=== PATIENT | female | born 1965 | race Caucasian/White ===

== ENCOUNTER → 2020-01-23 13:35 | Outpatient (CLI) | payer BC, SELFPAY ==
[2020-01-23 13:41] LABS: Basophils # 0.1 K/mm3 (0-0.2); Eosinophils # 0.4 K/mm3 (0.0-0.4); Eosinophils % 3.3 % (0.1-12.0); Hematocrit 40.6 % (37.0-47.0); Hemoglobin 14.1 g/dL (12.2-16.2); Lymphocytes # 3.2 K/mm3 (0.7-4.5); Lymphocytes % 26.8 % (10-50); Mean Corpuscular HGB Conc 34.8 g/dL (31.8-35.4); Mean Corpuscular Hemoglobin 30.9 pg (27.0-31.2); Mean Corpuscular Volume 88.7 fl (81-99); Mean Platelet Volume 7.1 fl (7.4-10.4); Monocytes # 0.5 K/mm3 (0.1-1.0); Neutrophils # 7.9 K/mm3 (1.8-7.8); Neutrophils % 64.9 % (37.0-80.0); Platelet Count 360 K/mm3 (142-424); Red Blood Count 4.58 M/mm3 (4.20-5.40); White Blood Count 12.1 K/mm3 (4.8-10.8)
== END ==
PROVIDERS: Visit Provider Family Medicine
DX: R53.83 Other fatigue (principal); R51 Headache
CPT/HCPCS: 85025

== ENCOUNTER → 2020-05-11 17:46 | Outpatient (CLI) | payer BC, SELFPAY ==
[2020-05-11 19:32] LABS: Thyroid Stimulating Hormone 3.83 uIU/mL (0.465-4.68)
== END ==
PROVIDERS: Visit Provider Family Medicine
DX: R51.9 Headache, unspecified (principal); E03.9 Hypothyroidism, unspecified
CPT/HCPCS: 84443

== ENCOUNTER → 2020-07-02 14:42 | Outpatient (CLI) | payer BC, SELFPAY ==
[2020-07-02 19:00] LABS: Coronavirus 19 IgG Antibody Positive (Negative); Coronavirus 19 IgM Antibody Negative (Negative)
== END ==
PROVIDERS: Visit Provider Family Medicine
DX: Z01.818 Encounter for other preprocedural examination (principal); Z86.19 Personal history of other infectious and parasitic diseases; G47.419 Narcolepsy without cataplexy
CPT/HCPCS: 36415; 86328

== ENCOUNTER → 2020-07-03 20:11 | Outpatient (CLI) | payer BC, SELFPAY | PROVIDERS: PCP Family Medicine; Visit Provider Family Medicine | DX: G47.33 Obstructive sleep apnea (adult) (pediatric) (principal); G47.36 Sleep related hypoventilation in conditions classified elsewhere; R40.0 Somnolence; R06.83 Snoring; E66.9 Obesity, unspecified | CPT/HCPCS: 95810 ==

== ENCOUNTER → 2020-07-25 10:14 | Outpatient (CLI) | payer BC, SELFPAY ==
--- NOTE | 2020-07-25 10:39 | XR_ITS ---
PROCEDURE: XR CHEST 2V CLINICAL HISTORY: nocturnal hypoxemia, tobacco abuse COMPARISON: No exams were available for comparison FINDINGS: The cardiomediastinal silhouette and pulmonary vascularity are within normal limits. The lungs are clear without infiltrates, suspicious nodules, or pleural effusions. No acute bony abnormalities. IMPRESSION: No acute findings. Dictated by: Enrrique Dhaliwal MD 07/25/2020 11:56 Enrrique Dhaliwal MD in [place] 07/25/2020 11:56
== END ==
PROVIDERS: Visit Provider Specialist
DX: G47.10 Hypersomnia, unspecified (principal); G47.33 Obstructive sleep apnea (adult) (pediatric); G47.34 Idiopathic sleep related nonobstructive alveolar hypoventilation; R49.0 Dysphonia; Z68.36 Body mass index [BMI] 36.0-36.9, adult; Z72.0 Tobacco use
CPT/HCPCS: 36415; 71046

== ENCOUNTER → 2020-08-07 12:19 | Outpatient (CLI) | payer BC, SELFPAY ==
--- NOTE | 2020-08-07 12:25 | XR_ITS ---
PROCEDURE: XR FOOT RT MIN 3V CLINICAL INDICATION: foot injury Pain COMPARISON: No exams were available for comparison FINDINGS: No fracture or dislocation. No lytic or blastic change. There is normal mineralization. The joint spaces are well-preserved. No significant degenerative/arthritic changes. No erosive changes evident. Other findings:None. IMPRESSION: No acute findings. Dictated by: Enrrique Dhaliwal MD 08/07/2020 12:46 Enrrique Dhaliwal MD in [place] 08/07/2020 12:46
[2020-08-07 13:55] VITALS: PULSE 82; PULSE 85
== END ==
LOC: RT 12:21
PROVIDERS: PCP Family Medicine; Visit Provider Specialist
DX: G47.33 Obstructive sleep apnea (adult) (pediatric) (principal); G47.10 Hypersomnia, unspecified; G47.34 Idiopathic sleep related nonobstructive alveolar hypoventilation; R49.0 Dysphonia; Z72.0 Tobacco use; Z68.36 Body mass index [BMI] 36.0-36.9, adult; M79.671 Pain in right foot
CPT/HCPCS: 73630; 94060; 94618; 94640; 94727; 94729

== ENCOUNTER → 2020-09-26 10:43 | Outpatient (CLI) | payer BC, SELFPAY ==
--- NOTE | 2020-09-26 10:43 | CT_ITS ---
PROCEDURE: CT LUNG SCREENING CLINICAL INDICATION: LDCT Current smoker 30 pack year smoking history copd No prior COMPARISON: No exams were available for comparison TECHNIQUE: The exam was performed on a GE Light Speed [address] scanner using 2.90 mGy CTDI. A low dose helical CT CHEST was performed on a multi-detector scanner. All CT scans at the facility use one or more dose reduction, viz: automated exposure control, ma/kV adjustment per patient size (including targeted exams where dose is matched to indication, i.e. head), or iterative reconstruction technique. The LDCT was performed in a facility that meets the criteria for the screening program. Data regarding this exam was submitted to ACR which is an approved registry. The order for this exam indicates that it came as a result of a lung cancer screening counseling shard decision-making visit that included all the elements required of such a visit including smoking cessation. The radiologist interpreting this exam meets the CMS criteria for the LDCT lung cancer screening program. The exam is reported using the Lung-RADS classification scale and reported to the ACR registry. NOTE: This study was performed for the specific purposes of lung cancer screening and is not an alternative to diagnostic chest CT. RADIATION DOSE: CTDI vol(CT dose Index-volume) = 2.90mG DLP (Dose Length Product) = 96.38 mGcm FINDINGS: COPD changes. There is coarsening of the bronchovascular markings which may be seen with smoking related lung disease/chronic bronchitis. Mild atelectatic changes or fibrotic changes are present in the lower lobe posterior medially. No suspicious nodules apparent OTHER FINDINGS: No other pertinent findings evident. IMPRESSION: Lung-RADS Category 1 Negative Follow-up: Continue annual screening with LDCT in 12 months Dictated by: Enrrique Dhaliwal MD 09/28/2020 07:38 Enrrique Dhaliwal MD in [place] 09/28/2020 07:38
[2020-09-27 14:12] LABS: Alpha-1-Antitrypsin 145 mg/dL (101-187)
== END ==
LOC: RAD 10:43
PROVIDERS: PCP Family Medicine; Visit Provider Internal Medicine Pulmonary Disease
DX: Z87.891 Personal history of nicotine dependence (principal); Z12.2 Encounter for screening for malignant neoplasm of respiratory organs; J44.9 Chronic obstructive pulmonary disease, unspecified
CPT/HCPCS: 36415; 71271; 82103

== ENCOUNTER → 2020-09-26 11:12 | Outpatient (CLI) | payer BC, SELFPAY | PROVIDERS: Visit Provider Internal Medicine Pulmonary Disease | DX: Z87.891 Personal history of nicotine dependence (principal) | CPT/HCPCS: 36415; 82103 ==

== ENCOUNTER → 2020-10-12 17:51 | Outpatient (CLI) | payer BC, SELFPAY ==
[2020-10-12 18:03] LABS: Basophils # 0.1 K/mm3 (0-0.2); Basophils % 0.8 % (0.1-2.0); Eosinophils # 0.4 K/mm3 (0.0-0.4); Eosinophils % 2.4 % (0.1-12.0); Hematocrit 34.8 % (37.0-47.0); Hemoglobin 13.6 g/dL (12.2-16.2); Lymphocytes # 3.8 K/mm3 (0.7-4.5); Lymphocytes % 21.2 % (10-50); Mean Corpuscular Hemoglobin 33.8 pg (27.0-31.2); Mean Corpuscular Volume 86.5 fl (81-99); Mean Platelet Volume 7.2 fl (7.4-10.4); Monocytes # 0.7 K/mm3 (0.1-1.0); Monocytes % 3.8 % (1.7-9.3); Neutrophils % 71.9 % (37.0-80.0); Platelet Count 426 K/mm3 (142-424); Red Blood Count 4.03 M/mm3 (4.20-5.40); Red Cell Distribution Width 13.7 % (11.5-17.5); White Blood Count 18.1 K/mm3 (4.8-10.8)
[2020-10-12 18:07] LABS: MANUAL DIFFERENTIAL MANUAL DIFFERENTIAL (MANUAL DIFF)
[2020-10-12 18:23] LABS: Eosinophils % 3 % (0-3); Lymphocytes % 31 % (10-50); Monocytes % 2 % (2-9); Neutrophils % 63 % (42-76); Platelet Estimate Normal; RBC Morphology Normal; Total Cells Counted 100
[2020-10-12 18:38] LABS: Chloride 108 mmol/L (98-107); Potassium 4.2 mmoL/L (3.5-5.1); Sodium 140 mmol/L (136-145)
[2020-10-12 18:40] LABS: Alanine Aminotransferase 30 U/L (12-78); Aspartate Amino Transferase 29 U/L (14-36); Blood Urea Nitrogen 11 mg/dl (7-17); Estimated Glomerular Filt Rate 86 ml/min (>60); GFR (African American) 104 ML/MIN (>60)
[2020-10-12 18:41] LABS: Albumin Level 4.1 g/dl (3.5-5.0); Albumin/Globulin Ratio 1.6 (1.1-1.8); Alkaline Phosphatase 114 U/L (38-126); Bilirubin,Total 0.3 mg/dl (0.2-1.3); Calcium 9.3 mg/dl (8.4-10.2); Carbon Dioxide 23 mmol/L (22.0-30.0); Chol/HDL Ratio 6.2 (1-3.5); Cholesterol 187 mg/dl (140-200); Globulin 2.6 g/dL (1.3-3.2); Glucose 102 mg/dl (74-100); HDL Cholesterol 30 mg/dl (40-60); Total Protein,Serum 6.7 g/dl (6.3-8.2); Triglycerides 275 mg/dl (30-150); VLDL Cholesterol 55 mg/dL (0-40)
[2020-10-12 18:43] LABS: Anion Gap 13.2 mEq/L (5-15)
[2020-10-12 18:53] LABS: Direct LDL Cholesterol 117.14 mg/dL (100-129)
[2020-10-12 18:58] LABS: T4 (Thyroxine) 12.7 ug/dl (5.53-11.0)
[2020-10-12 19:12] LABS: Thyroid Stimulating Hormone 0.09 uIU/mL (0.465-4.68)
== END ==
PROVIDERS: Visit Provider Family Medicine
DX: E03.9 Hypothyroidism, unspecified (principal); Z79.899 Other long term (current) drug therapy
CPT/HCPCS: 80053; 80061; 84436; 84443; 85007; 85025

== ENCOUNTER → 2021-09-05 07:51 | Outpatient (CLI) | payer BC, SELFPAY ==
--- NOTE | 2021-09-05 07:51 | CT_ITS ---
FINAL REPORT TECHNIQUE: Axial images were obtained from the lung apex to the mid abdomen by computed tomography. Low-dose protocol was utilized. CLINICAL HISTORY: lung cancer screening 1ppd x 30 years copd COMPARISON: 09/26/2020 FINDINGS: CHEST CT LOW DOSE CTDI vol (mGy): 2.90 DLP (mGy-cm): 93.51 There is no axillary adenopathy. There is no hilar or mediastinal adenopathy. The heart is normal in size. There is no pericardial or pleural effusion. Lung window images demonstrate no suspicious infiltrate or nodule. Mild emphysema is noted. There is mild atelectasis or scar in the lung bases. Limited images of the upper abdomen are unremarkable. IMPRESSION: Lung RADS category 1. Recommend 12 month follow-up low-dose chest CT. Reviewed, Interpreted and Dictated by Yonas Goldsmith III, MD Transcribed by Magi Peñaloza Authenticated by Yonas Goldsmith III, MD on 09/05/2021 10:01:02 AM [facility]
== END ==
PROVIDERS: PCP Family Medicine; Visit Provider Internal Medicine Pulmonary Disease
DX: Z87.891 Personal history of nicotine dependence (principal); Z12.2 Encounter for screening for malignant neoplasm of respiratory organs
CPT/HCPCS: 71271

== ENCOUNTER → 2022-03-11 07:56 | Outpatient (CLI) | payer BC, SELFPAY ==
[2022-03-11 08:20] VITALS: PULSE 73; PULSE 77
== END ==
LOC: RT 07:57
PROVIDERS: PCP Family Medicine; Visit Provider Internal Medicine Pulmonary Disease
DX: R06.02 Shortness of breath (principal)
CPT/HCPCS: 94060; 94640

== ENCOUNTER → 2022-05-16 10:53 | Outpatient (CLI) | payer BC, SELFPAY ==
[2022-05-16 16:06] LABS: Basophils # 0.2 K/mm3 (0-0.2); Basophils % 1.6 % (0.1-2.0); Eosinophils # 0.4 K/mm3 (0.0-0.4); Eosinophils % 3.2 % (0.1-12.0); Hemoglobin 15.4 g/dL (12.2-16.2); Lymphocytes # 3.1 K/mm3 (0.7-4.5); Lymphocytes % 27.4 % (10-50); Mean Corpuscular HGB Conc 32.8 g/dL (31.8-35.4); Mean Corpuscular Hemoglobin 29.7 pg (27.0-31.2); Mean Corpuscular Volume 90.6 fl (81-99); Mean Platelet Volume 8.5 fl (7.4-10.4); Monocytes # 0.6 K/mm3 (0.1-1.0); Monocytes % 5.3 % (1.7-9.3); Neutrophils % 62.4 % (37.0-80.0); Platelet Count 438 K/mm3 (142-424); Red Blood Count 5.19 M/mm3 (4.20-5.40); Red Cell Distribution Width 13.6 % (11.5-17.5); White Blood Count 11.3 K/mm3 (4.8-10.8)
[2022-05-16 16:15] LABS: Chol/HDL Ratio 5.4 (1-3.5); Cholesterol 217 mg/dl (140-200); HDL Cholesterol 40 mg/dl (40-60); Triglycerides 182 mg/dl (30-150); VLDL Cholesterol 36 mg/dL (0-40)
[2022-05-16 16:26] LABS: Direct LDL Cholesterol 132.34 mg/dL (100-129)
[2022-05-16 16:47] LABS: Thyroid Stimulating Hormone 0.42 uIU/mL (0.465-4.68)
== END ==
PROVIDERS: PCP Family Medicine; Visit Provider Family Medicine
DX: R20.2 Paresthesia of skin (principal)
CPT/HCPCS: 80061; 84436; 84443; 85025

== ENCOUNTER → 2022-09-29 06:44 | Outpatient (CLI) | payer BC, SELFPAY ==
--- NOTE | 2022-09-29 06:44 | CT_ITS ---
FINAL REPORT CLINICAL HISTORY: lung cancer screening CURRENT SMOKER 1/2PPD X30 YEARS COMPARISON: September 05, 2021 FINDINGS: Low-Dose Chest CT CTDI vol (mGy): 2.90 DLP (mGy-cm): 91.69 Axial images were obtained from the lung apex to the mid abdomen by computed tomography. Low-dose protocol was utilized. FINDINGS: CHEST: There is no axillary adenopathy. There is no hilar or mediastinal adenopathy. The heart is proper size. There is no pericardial or pleural effusion. Limited images of the upper abdomen are unremarkable. Lung window images demonstrate no suspicious infiltrate or nodule. Emphysematous changes are present. IMPRESSION: Lung RADS category 1. Recommend 12 month follow-up low-dose chest CT. Reviewed, Interpreted and Dictated by Edwige Damon MD Transcribed by Raphael Zamarripa Authenticated and [facility]
== END ==
PROVIDERS: PCP Family Medicine; Visit Provider Internal Medicine Pulmonary Disease
DX: Z87.891 Personal history of nicotine dependence (principal); Z12.2 Encounter for screening for malignant neoplasm of respiratory organs
CPT/HCPCS: 71271

== ENCOUNTER → 2023-04-10 08:46 | Outpatient (CLI) | payer BC, SELFPAY ==
[2023-04-10 18:38] LABS: Alanine Aminotransferase 25 U/L (12-78); Albumin Level 3.7 g/dl (3.5-5.0); Albumin/Globulin Ratio 1.3 (1.1-1.8); Alkaline Phosphatase 94 U/L (38-126); Aspartate Amino Transferase 29 U/L (14-36); Bilirubin,Total 0.2 mg/dl (0.2-1.3); Blood Urea Nitrogen 16 mg/dl (7-17); Calcium 8.9 mg/dl (8.4-10.2); Carbon Dioxide 27 mmol/L (22.0-30.0); Chloride 109 mmol/L (98-107); Estimated Glomerular Filt Rate 73 ml/min (>60); GFR (African American) 89 ML/MIN (>60); Globulin 2.8 g/dL (1.3-3.2); Glucose 121 mg/dl (74-100); Sodium 140 mmol/L (136-145); Total Protein,Serum 6.5 g/dl (6.3-8.2)
== END ==
PROVIDERS: Family Medicine; PCP Internal Medicine Pulmonary Disease; Visit Provider Internal Medicine Pulmonary Disease
DX: M25.552 Pain in left hip (principal); M25.551 Pain in right hip
CPT/HCPCS: 80053

== ENCOUNTER → 2023-07-13 09:41 | Outpatient (POV) | payer BC, SELFPAY ==
--- NOTE | 2023-07-13 10:29 | A.OFFVIS_ITS ---
HPI Data of Consult Requesting Physician: Karina Chirinos APRN Primary Care Provider: Joon Lakhani MD Consult Narrative Reason for consult: Neck pain, low back pain, shoulder pain, left hip pain, left buttocks pain History of present illness: Ms. Mistry is a 57 year old female who presents today as a new patient. She is a referral from Manpreet Lakhani's office. Today she rates her pain a 5 out of 10. Patient states her pain is from her neck down to her left hip/buttocks. Patient states she has been dealing with this pain over the last 4 to 5 years unrelated to any specific trauma or injury. She does state that she has a stabbing, achy sensation in her neck and shoulder that is worse with increased activity. Patient does state that she has numbness in her hip and buttocks area. Patient does state that she also has sharp stabbing pains in her left hip. Patient does states she had a previous lumbar discectomy approximately 5 to 7 years ago. Patient does state that she has tried Tylenol and ibuprofen along with heat and ice with minimal relief. Patient has tried physical therapy however this made her symptoms worse. Patient is interested in any help we may be able to provide. She does state the pain interferes with her ability perform activities of daily living such as cooking and cleaning and she is trying to prevent having to have additional surgery. Patient is currently managed with [place] 5 mg daily from her PCP. Her Driss has been reviewed and is appropriate. CC: Karina Chirinos APRN [facility] Disclaimer: The information contained in this section may have been updated after the patient was seen, as this information can be updated by other users. Medical History Allergic rhinitis COPD (chronic obstructive pulmonary disease) Exertional shortness of breath Screening for lung cancer Smoking greater than 30 pack years Tobacco abuse counseling Tobacco abuse disorder Surgical History History of appendectomy History of hernia repair History of total hysterectomy Hx of cholecystectomy Family History Other Asthma Coronary artery disease Diabetes Hyperlipidemia Hypertension Social History Smoking Status: Current every day smoker tobacco type: cigarettes packs per day: 1 alcohol intake: never substance use type: denies use current occupational status: employed Travel in the last 8 weeks: None household members: spouse and children housing: house Review of Systems Review of Systems Review of systems:: pertinent systems reviewed and negative unless documented below Review of systems (narrative): Review of Systems: General: No recent weight changes, no fever, no sleep disturbances Respiratory: No cough, no shortness of air, no recurring pulmonary infections Cardiovascular/peripheral vascular: No chest pain, no palpitations, no edema, no shortness of breath Gastrointestinal: No new onset incontinence, normal bowel movements reported Genitourinary: No new onset incontinence Musculoskeletal: Neck pain, shoulder pain, low back pain, left hip pain, left buttocks pain Psychiatric: [Normal mood/affect] Neurological: [Denies weakness in extremities], [denies balance issues] Meds Home Medications and Allergies Home Medications Medication Instructions Recorded Confirmed Type ezooptouiq-bxdftdkjuhgqi-aganyrlt 1 cap PO TID PRN pain #30 caps 11/26/07/09/23 Rx 50 mg-300 mg-40 mg capsule (Fioricet) azelastine 137 mcg (0.1 %) nasal 1 spray intranasal BID 90 days #90 03/11/22 07/09/23 Rx spray aerosol mL gemfibrozil 600 mg tablet See Rx Instructions .Route 05/16/22 07/09/23 Rx .COMPLEX #180 tabs albuterol sulfate 90 mcg/actuation 2 inh inhalation Q6H PRN shortness 10/03/22 07/09/23 Rx aerosol inhaler of breath or wheezing 90 days #8.5 grams fluticasone propionate 50 1 spray intranasal BID 90 days #16 10/03/22 07/09/23 Rx mcg/actuation nasal grams spray,suspension (Flonase Allergy Relief) levothyroxine 200 mcg tablet See Rx Instructions .Route 12/02/22 07/09/23 Rx .COMPLEX #90 tabs lisinopril 20 mg tablet 20 mg PO DAILY #90 tabs 12/02/22 07/09/23 Rx paroxetine HCl 20 mg tablet (Paxil) 20 mg PO DAILY #90 tabs 12/02/22 07/09/23 Rx hydrocodone 5 mg-acetaminophen 325 1 tab PO DAILY PRN pain #20 tabs 05/27/23 07/09/23 Rx mg tablet umeclidinium 62.5 mcg-vilanterol See Rx Instructions .Route 06/11/23 07/09/23 Rx 25 mcg/actuation powdr for .COMPLEX #60 ea inhalation (Anoro Ellipta) levofloxacin 500 mg tablet 500 mg PO DAILY 10 days #10 tabs 07/09/23 07/09/23 Rx New Prescriptions to Start Prescriptions: Allergies Allergy/AdvReac Type Severity Reaction Status Date / Time estrogens, conjugated Allergy Severe Hives Verified 07/09/23 11:29 [From Premarin] Iodinated Contrast Media Allergy Unknown Verified 07/09/23 11:29 flu vaccine Allergy rash Uncoded 07/09/23 11:29 Objective Narrative: Physical Exam: General: Alert and oriented x3, no acute distress, pleasant and cooperative Lungs: Respirations even and unlabored, symmetrical chest expansion Eyes: PERRL Musculoskeletal: Flexion and extension of lumbar [spine] somewhat guarded secondary to pain, [antalgic gait noted] point tenderness along left SI with positive left Elvis's, Briseyda's, Gaenslen's, compression and distraction exam Neurological: Speech clear, no gross sensory deficit Additional findings Additional findings: MRI lumbar spine with and without contrast 05/06/2023 Findings: Marrow signal is age-appropriate. There are moderate endplate reactive changes L2-L3. There is straightening of the lumbar lordosis with intact vertebral body heights and spinal alignment. The conus is not studied in detail, terminating in L2. Following contrast administration there is no pathological enhancement. There is disc desiccation at T11-12, from L1-2 through L3-L4 and at L5-S1. There is moderate loss of disc space height at L1-2 and severe loss of disc space height at L2-L3 and L5-S1, there is moderate bilateral facet arthropathy, left greater than right and a minor central disc protrusion measuring 2 mm AP. There is also predominant anterior epidural fat at this level. The thecal sac at this level measures 9 mm without foraminal n arrowing. These findings are unchanged: At L4-L5 there is a central disc protrusion measuring 2 mm AP and mild bilateral facet arthropathy. There is no spinal stenosis or foraminal narrowing, unchanged. At L3-L4, there is mild facet arthropathy and ligamentum flavum hypertrophy. These findings narrows the thecal sac to 9.5 mm without foraminal narrowing. The ligamentum flavum hypertrophy and mild spinal stenosis are new. At L2-L3 the patient is status post left hemilaminectomy. There is a disc bulge and posterior disc osteophyte complex without spinal stenosis. There is mild bilateral neuroforaminal narrowing. Following contrast administration there is no perineural fibrosis. When compared with prior the spinal stenosis has improved and the foraminal narrowing is stable. At L1-2 there is mild disc bulge without spinal stenosis or foraminal narrowing. The remainder of the visualized interspaces are unremarkable. 04/13/2023 have been pelvis x-ray Mild enthesopathy of the greater trochanter. There is mild osteoarthritis of the left hip joint. Cam type deformity of the left femoral head/neck. Assessment and Plan *Assessment and plan (1) Neck pain: Status: Acute Category: Medical Code(s): M54.2 - Cervicalgia (2) Shoulder pain: Status: Acute Qualifiers: Chronicity: chronic Laterality: left Qualified Code(s): M25.512 - Pain in left shoulder; G89.29 - Other chronic pain Category: Medical Code(s): M25.519 - Pain in unspecified shoulder (3) Low back pain: Status: Acute Qualifiers: Chronicity: chronic Back pain laterality: bilateral Sciatica presence: with sciatica Sciatica laterality: sciatica of left side Qualified Code(s): M54.42 - Lumbago with sciatica, left side; G89.29 - Other chronic pain Category: Medical Code(s): M54.50 - Low back pain, unspecified (4) DDD (degenerative disc disease): Status: Acute Qualifiers: Spinal region: lumbar Qualified Code(s): M51.36 - Other intervertebral disc degeneration, lumbar region Category: Medical (5) Sacroiliitis: Status: Acute Category: Medical Code(s): M46.1 - Sacroiliitis, not elsewhere classified (6) Left hip pain: Status: Acute Category: Medical Code(s): M25.552 - Pain in left hip (7) Left buttock pain: Status: Acute Category: Medical Code(s): M79.18 - Myalgia, other site Plan Patient is experiencing significant pain in her low back and hip with limited range of motion of her lumbar spine. Patient did have point tenderness along her left SI and a positive left Elvis's, Briseyda's, Gaenslen's, compression and distraction exam during today's visit. I have discussed with the patient that she may benefit from a left SI injection. Risk and benefits were discussed with the patient and she would like to proceed forward with this plan of care. Patient will be scheduled for a diagnostic left SI injection under fluoroscopy. Patient has been instructed to contact the clinic with any concerns before the next appointment. Dr. Ramirez has reviewed this note and agrees with this plan of care. This note was dictated using voice recognition software and make contain errors or omissions.
[2023-07-13 11:12] VITALS: BP 163/79; PULSE 76; RESP 18; O2SAT 96; BMI 33.6
== END ==
LOC: SC.PAIN 09:42
PROVIDERS: PCP Family Medicine; Visit Provider Nurse Practitioner Family
DX: M54.2 Cervicalgia (principal); M25.512 Pain in left shoulder; G89.29 Other chronic pain; M54.42 Lumbago with sciatica, left side; M51.36 Other intervertebral disc degeneration, lumbar region; M46.1 Sacroiliitis, not elsewhere classified; M25.552 Pain in left hip; M79.18 Myalgia, other site
CPT/HCPCS: 99202; G0463

== ENCOUNTER 2023-08-11 09:42 | Day surgery (SDC) | payer BC, SELFPAY ==
[2023-08-11 10:10] VITALS: BP 140/86; PULSE 72; RESP 16; TEMP 36.6; O2SAT 98; BMI 34.5
[2023-08-11] MEDS: BUPIVACAINE 0.25% 10ML INJ 25 MG IJ (10:13)
[2023-08-11] MEDS: LIDOCAINE 1% 5ML PF VIAL 5 ML (10:14)
[2023-08-11] MEDS: methylPREDNISolone ACETATE 80MG/ML VIAL 80 MG (10:14)
[2023-08-11 10:15] VITALS: BP 119/79; PULSE 64; RESP 18; O2SAT 94
[2023-08-11 10:18] VITALS: BP 119/79; PULSE 69; RESP 18; O2SAT 96
[2023-08-11 10:25] VITALS: BP 141/82; PULSE 65; RESP 16; O2SAT 98
--- NOTE | 2023-08-11 10:45 | EXP.PAIN.PRO ---
Procedure Date: 08/11/23 Time: 10:20 Anesthesiologist:: Blas Osuna CRNA Complications:: None Pre-procedure Diagnosis:: Left sacroiliitis Post-procedure Diagnosis:: Same Indications for Procedure:: Patient is a very pleasant 57-year-old female comes our clinic today for a left sacroiliac joint injection. She describes left posterior hip pain as constant, dull, aching. She reports pain intensifies with sitting and/or standing for any length of time. Ambulation increases pain in the posterior hip on the left. She rates her pain 7/10 Procedure Details:: Procedure: Left sacroiliac injection under fluoroscopy Informed consent was obtained and the risk and benefits of the procedure were explained to the patient.~ The patient was taken to the procedure room and noninvasive monitors were placed including noninvasive blood pressure cuff and pulse oximeter.~ The patient was placed prone on the procedure table.~ The~ left hip was cleansed using Betadine as a cleansing solution.~ C-arm fluorosocpy was used to view the left SI joint.~ The skin and subcutaneous tissues were anesthetized using Lidocaine 1.5% and a 25-gauge needle.~ After this, a 22-gauge spinal needle was inserted under fluoroscopic guidance into the inferior aspect of the left SI joint.~ Omnipaque dye was injected and a good spread was seen throughout the joint.~ After this, approximately 5 mL of bupivacaine 0.25% and Depo-Medrol 40 mg was incrementally injected into the sacroiliac joint.~ The patient tolerated the procedure well with no complications.~ The patient was observed in the Pain Clinic for a period of 30-45 minutes, then discharged home neurologically intact.~ Plan and Disposition:: Patient was discharged without incident.
== END 2023-08-11 10:25 | disposition home or self-care (01) ==
LOC: SC.PAINP 09:42
PROVIDERS: PCP Family Medicine; Visit Provider Nurse Anesthetist, Certified Registered
DX: M46.1 Sacroiliitis, not elsewhere classified (principal)
CPT/HCPCS: 27096; G0260; J1040

== ENCOUNTER 2023-08-28 09:29 | Outpatient (POV) | payer BC, SELFPAY ==
--- NOTE | 2023-08-28 09:37 | EXP.PAIN.SOA ---
[facility] Pain Management SOAP Note Subjective:: Patient is a pleasant 57-year-old female who presents today for follow-up of left SI injection on 08/11/2023. We are currently treating the patient for left sacroiliitis, neck pain, shoulder pain, degenerative disc disease of lumbar spine, left buttocks pain. Today she rates her pain a 3 out of 10. She states that she has had at least 80% relief following this injection and feels like it still providing additional improvement. She states she has been able to increase her activity with decreased pain symptoms and feels overall more functional. Patient does state that she even noticed improvement in her neck and shoulder symptoms following this injection. Patient is currently managed with [place] 5 mg daily from her primary care provider. Her Driss has been reviewed and is appropriate. Review of Systems: General: No recent weight changes, no fever, no sleep disturbances Respiratory: No cough, no shortness of air, no recurring pulmonary infections Cardiovascular/peripheral vascular: No chest pain, no palpitations, no edema, no shortness of breath Gastrointestinal: No new onset incontinence, normal bowel movements reported Genitourinary: No new onset incontinence Musculoskeletal: Low back pain Psychiatric: [Normal mood/affect] Neurological: [Denies weakness in extremities], [denies balance issues] Objective:: Physical Exam: General: Alert and oriented x3, no acute distress, pleasant and cooperative Lungs: Respirations even and unlabored, symmetrical chest expansion Eyes: PERRL Musculoskeletal: Flexion and extension of lumbar [spine] somewhat guarded secondary to pain, [antalgic gait noted] Neurological: Speech clear, no gross sensory deficit Assessment:: Degenerative disc disease of lumbar spine with left-sided sacroiliitis, neck pain, shoulder pain, left buttocks pain Plan:: Patient has had significant improvement following her left SI injection and does not require any additional injection therapy at this time. Patient will return to clinic in 1 month for reevaluation of symptoms and plan of care. Patient has been instructed to contact the clinic with any concerns before the next appointment. Dr. Ramirez has reviewed this note and agrees with this plan of care. This note was dictated using voice recognition software and make contain errors or omissions. [facility] Disclaimer: The information contained in this section may have been updated after the patient was seen, as this information can be updated by other users. Medical History Allergic rhinitis COPD (chronic obstructive pulmonary disease) Exertional shortness of breath Screening for lung cancer Smoking greater than 30 pack years Tobacco abuse counseling Tobacco abuse disorder Surgical History History of appendectomy History of hernia repair History of total hysterectomy Hx of cholecystectomy Family History Other Asthma Coronary artery disease Diabetes Hyperlipidemia Hypertension Social History Smoking Status: Current every day smoker tobacco type: cigarettes packs per day: 1 alcohol intake: never substance use type: denies use current occupational status: employed Travel in the last 8 weeks: None household members: spouse and children housing: house
[2023-08-28 10:11] VITALS: BP 107/81; PULSE 73; RESP 18; O2SAT 97; BMI 33.1
== END 2023-08-28 23:59 ==
LOC: SC.PAIN 09:29
PROVIDERS: PCP Family Medicine; Visit Provider Nurse Practitioner Family
DX: M51.36 Other intervertebral disc degeneration, lumbar region (principal); M46.1 Sacroiliitis, not elsewhere classified; M54.2 Cervicalgia; M25.519 Pain in unspecified shoulder; M79.18 Myalgia, other site
CPT/HCPCS: 99212; G0463

== ENCOUNTER 2023-10-05 09:42 | Outpatient (POV) | payer BC, SELFPAY ==
[2023-10-05 09:49] VITALS: BP 153/89; PULSE 79; RESP 18; O2SAT 99; BMI 35.2
--- NOTE | 2023-10-05 09:56 | A.OFFVIS_ITS ---
[facility] Pain Management SOAP Note Subjective:: Patient is a pleasant 57-year-old female who presents today for follow-up. We are currently treating the patient for left sacroiliitis, neck pain, shoulder pain, degenerative disc disease of lumbar spine, left buttocks pain. Today she rates her pain a 5 out of 10. She denies any new trauma or injury. She does state that the pain is starting to increase at the same location as last time. She does describe it as high aching, throbbing sensation with pressure in and around her left hip and left buttocks area. Patient states the pain is worse with certain movements or prolonged positioning. She states the pain is starting to interfere with her ability perform activities of daily living such as cooking and cleaning. Patient did previously have her first sacroiliac joint injection on 08/11/2023 that did provide 80% relief in his lasted approximately a month and a half. Patient is interested in repeating this injection because it did not help so well. She is currently managed with [place] 5 mg daily from her primary care provider. Her Driss has been reviewed and is appropriate. Review of Systems: General: No recent weight changes, no fever, no sleep disturbances Respiratory: No cough, no shortness of air, no recurring pulmonary infections Cardiovascular/peripheral vascular: No chest pain, no palpitations, no edema, no shortness of breath Gastrointestinal: No new onset incontinence, normal bowel movements reported Genitourinary: No new onset incontinence Musculoskeletal: Low back pain, left hip pain Psychiatric: [Normal mood/affect] Neurological: [Denies weakness in extremities], [denies balance issues] Objective:: Physical Exam: General: Alert and oriented x3, no acute distress, pleasant and cooperative Lungs: Respirations even and unlabored, symmetrical chest expansion Eyes: PERRL Musculoskeletal: Flexion and extension of lumbar [spine] somewhat guarded secondary to pain, [antalgic gait noted] point tenderness along left SI with positive left Elvis's, Briseyda's, Gaenslen's, compression and distraction exam Neurological: Speech clear, no gross sensory deficit Assessment:: low back pain, left hip pain, left sacroiliitis, neck pain, shoulder pain Plan:: Patient is experiencing worsening pain in her low back along the left hip and left buttocks. Patient did have limited range of motion of her lumbar spine with point tenderness at her left SI and a positive left Elvis's, Briseyda's, Gaenslen's, compression and distraction exam. I have discussed with the patient that she may benefit from a repeat left SI injection. Risk and benefits were discussed with the patient and she would like to proceed forward with this plan of care. Patient did previously have her first left SI injection back at the very beginning of July that provided 80% improvement lasting for approximately a month and a half. I will also order the patient a compounded cream. Patient will be scheduled for a left SI injection under fluoroscopy. Patient has been instructed to contact the clinic with any concerns before the next appointment. Dr. Ramirez has reviewed this note and agrees with this plan of care. This note was dictated using voice recognition software and make contain errors or omissions. [facility] Disclaimer: The information contained in this section may have been updated after the patient was seen, as this information can be updated by other users. Medical History Allergic rhinitis COPD (chronic obstructive pulmonary disease) Exertional shortness of breath Screening for lung cancer Smoking greater than 30 pack years Tobacco abuse counseling Tobacco abuse disorder Surgical History History of appendectomy History of hernia repair History of total hysterectomy Hx of cholecystectomy Family History Other Asthma Coronary artery disease Diabetes Hyperlipidemia Hypertension Social History Smoking Status: Current every day smoker tobacco type: cigarettes packs per day: 1 alcohol intake: never substance use type: denies use current occupational status: retired Travel in the last 8 weeks: None household members: spouse and children housing: house
== END 2023-10-05 23:59 ==
LOC: SC.PAIN 09:43
PROVIDERS: PCP Family Medicine; Visit Provider Nurse Practitioner Family
DX: M51.36 Other intervertebral disc degeneration, lumbar region (principal); M25.552 Pain in left hip; M46.1 Sacroiliitis, not elsewhere classified; M54.2 Cervicalgia; M25.519 Pain in unspecified shoulder
CPT/HCPCS: 99212; G0463

== ENCOUNTER 2023-10-19 10:52 | Outpatient (CLI) | payer BC, SELFPAY ==
[2023-10-19 18:39] LABS: Basophils # 0.2 K/mm3 (0-0.2); Basophils % 1.6 % (0.1-2.0); Eosinophils # 0.3 K/mm3 (0.0-0.4); Eosinophils % 2.7 % (0.1-12.0); Hematocrit 45.5 % (37.0-47.0); Lymphocytes # 3.8 K/mm3 (0.7-4.5); Lymphocytes % 31.3 % (10-50); Mean Corpuscular HGB Conc 32.9 g/dL (31.8-35.4); Mean Corpuscular Hemoglobin 31.5 pg (27.0-31.2); Mean Corpuscular Volume 95.8 fl (81-99); Mean Platelet Volume 8.2 fl (7.4-10.4); Monocytes # 0.6 K/mm3 (0.1-1.0); Monocytes % 4.5 % (1.7-9.3); Neutrophils # 7.4 K/mm3 (1.8-7.8); Neutrophils % 59.9 % (37.0-80.0); Platelet Count 353 K/mm3 (142-424); Red Blood Count 4.75 M/mm3 (4.20-5.40); Red Cell Distribution Width 15.3 % (11.5-17.5); White Blood Count 12.3 K/mm3 (4.8-10.8)
[2023-10-19 19:05] LABS: Alanine Aminotransferase 33 U/L (12-78); Albumin Level 4.5 g/dl (3.5-5.0); Albumin/Globulin Ratio 1.7 (1.1-1.8); Alkaline Phosphatase 79 U/L (38-126); Anion Gap 11.4 mEq/L (5-15); Aspartate Amino Transferase 64 U/L (14-36); Bilirubin,Total 0.8 mg/dl (0.2-1.3); Blood Urea Nitrogen 17 mg/dl (7-17); Calcium 9.6 mg/dl (8.4-10.2); Carbon Dioxide 27 mmol/L (22.0-30.0); Chloride 105 mmol/L (98-107); Chol/HDL Ratio 5.1 (1-3.5); Cholesterol 282 mg/dl (140-200); Estimated Glomerular Filt Rate 57 ml/min (>60); GFR (African American) 68 ML/MIN (>60); Globulin 2.7 g/dL (1.3-3.2); Glucose 91 mg/dl (74-100); HDL Cholesterol 55 mg/dl (40-60); Potassium 4.4 mmoL/L (3.5-5.1); Sodium 139 mmol/L (136-145); Total Protein,Serum 7.2 g/dl (6.3-8.2); Triglycerides 250 mg/dl (30-150); VLDL Cholesterol 50 mg/dL (0-40)
[2023-10-19 19:16] LABS: Direct LDL Cholesterol 151.66 mg/dL (100-129)
[2023-10-19 20:49] LABS: Hemoglobin A1C 5.6 % (4.0-6.0)
== END 2023-10-19 23:59 | disposition home or self-care (01) ==
LOC: LAB.DROPOF 10-20 10:52
PROVIDERS: PCP Family Medicine; Visit Provider Family Medicine
DX: R22.0 Localized swelling, mass and lump, head (principal); W19.XXXA Unspecified fall, initial encounter
CPT/HCPCS: 80053; 80061; 83036; 84443; 85025

== ENCOUNTER 2023-10-27 10:43 | Day surgery (SDC) | payer BC, SELFPAY ==
[2023-10-27 11:01] VITALS: BP 132/79; PULSE 72; RESP 18; TEMP 36.4; O2SAT 99; BMI 35.4
[2023-10-27 11:10] VITALS: BP 151/85; PULSE 76; RESP 18; O2SAT 98
--- NOTE | 2023-10-27 11:12 | EXP.PAIN.PRO ---
Procedure Date: 10/27/23 Time: 11:00 Anesthesiologist:: Blas Osuna CRNA Complications:: None Pre-procedure Diagnosis:: Left sacroiliitis Post-procedure Diagnosis:: Same Indications for Procedure:: Patient's pleasant 58-year-old female that comes to clinic today for left sacroiliac joint injection. Patient reports difficulty transitioning from sitting to standing. Difficulty sitting for any length of time due to left low lumbar back pain as well as left posterior hip pain. She rates her pain 6/10. According to the patient she responded very well to this injection in the past. Procedure Details:: Procedure: Left sacroiliac injection under fluoroscopy Informed consent was obtained and the risk and benefits of the procedure were explained to the patient.~ The patient was taken to the procedure room and noninvasive monitors were placed including noninvasive blood pressure cuff and pulse oximeter.~ The patient was placed prone on the procedure table.~ The~ left hip was cleansed using Betadine as a cleansing solution.~ C-arm fluorosocpy was used to view the left SI joint.~ The skin and subcutaneous tissues were anesthetized using Lidocaine 1.5% and a 25-gauge needle.~ After this, a 22-gauge spinal needle was inserted under fluoroscopic guidance into the inferior aspect of the left SI joint.~ Omnipaque dye was injected and a good spread was seen throughout the joint.~ After this, approximately 5 mL of bupivacaine 0.25% and Depo-Medrol 40 mg was incrementally injected into the sacroiliac joint.~ The patient tolerated the procedure well with no complications.~ The patient was observed in the Pain Clinic for a period of 30-45 minutes, then discharged home neurologically intact.~ Plan and Disposition:: Patient was discharged without incident.
[2023-10-27] MEDS: methylPREDNISolone ACETATE 80MG/ML VIAL 80 MG (11:18)
[2023-10-27] MEDS: LIDOCAINE 1% 5ML PF VIAL 5 ML (11:18)
[2023-10-27] MEDS: BUPIVACAINE 0.25% 10ML INJ 25 MG IJ (11:18)
[2023-10-27 11:21] VITALS: BP 142/83; PULSE 79; RESP 18; O2SAT 95
[2023-10-27 11:24] VITALS: BP 142/83; PULSE 79; RESP 18; O2SAT 97
== END 2023-10-27 11:10 | disposition home or self-care (01) ==
PROVIDERS: PCP Family Medicine; Visit Provider Nurse Anesthetist, Certified Registered
DX: M46.1 Sacroiliitis, not elsewhere classified (principal)
CPT/HCPCS: 27096; G0260; J1010

== ENCOUNTER 2023-11-11 10:01 | Outpatient (POV) | payer BC, SELFPAY ==
[2023-11-11 10:50] VITALS: BP 125/92; PULSE 67; RESP 18; O2SAT 96; BMI 34.2
--- NOTE | 2023-11-11 16:31 | A.OFFVIS_ITS ---
[facility] Pain Management SOAP Note Subjective:: Patient is a pleasant 58-year-old female who presents today for follow-up of left SI injection on 10/27/2023. She does state from her last visit she had a fall a few weeks ago in the shower and hit her face. She states that she initially thought she may have broken her nose however it does just appear more soreness and did end up with a black eye. Patient states she has had at least 90% improvement following this injection and feels like it still helping. She states that she really only has pain in this area when it rains and that overall she feels much more functional. She states that pain is about a 3 out of 10. She does state however that her pain in her neck is a 7 or an 8 out of 10. Patient does state it radiates into her bilateral shoulders and into her arms with numbness and tingling. Patient does states this interferes with her ability to perform activities of daily living such as cooking and cleaning. Patient does state that she would like to see if we can get improvement for this pain. Patient has tried and failed conservative therapies. Patient is managed with [place] from an outside provider. Her Driss has been reviewed and is appropriate. Review of Systems: General: No recent weight changes, no fever, no sleep disturbances Respiratory: No cough, no shortness of air, no recurring pulmonary infections Cardiovascular/peripheral vascular: No chest pain, no palpitations, no edema, no shortness of breath Gastrointestinal: No new onset incontinence, normal bowel movements reported Genitourinary: No new onset incontinence Musculoskeletal: Neck pain, upper extremity pain Psychiatric: [Normal mood/affect] Neurological: [Denies weakness in extremities], [denies balance issues] Objective:: Physical Exam: General: Alert and oriented x3, no acute distress, pleasant and cooperative Lungs: Respirations even and unlabored, symmetrical chest expansion Eyes: PERRL Musculoskeletal: Flexion and extension of cervical [spine] somewhat guarded secondary to pain, [antalgic gait noted] positive Spurling's test Neurological: Speech clear, no gross sensory deficit Assessment:: Degenerative disc disease of cervical spine with cervical radiculopathy symptoms, low back pain, sacroiliitis Plan:: Patient is experiencing worsening pain in her neck with radiating symptoms into her upper extremities. Patient had limited range of motion of her cervical spine and a positive Spurling's test. I discussed with patient that she may benefit from a cervical epidural steroid injection. Risk and benefits were discussed with patient and she would like to proceed forward with this plan of care. Patient denies any blood thinners. Patient has tried and failed conservative therapies. We will schedule the patient for a ELYS C5-C6 under fluoroscopy. Patient has been instructed to contact the clinic with any concerns before the next appointment. Dr. Ramirez has reviewed this note and agrees with this plan of care. This note was dictated using voice recognition software and make contain errors or omissions. [facility] Disclaimer: The information contained in this section may have been updated after the patient was seen, as this information can be updated by other users. Medical History Allergic rhinitis Tobacco abuse disorder Tobacco abuse counseling Screening for lung cancer Smoking greater than 30 pack years COPD (chronic obstructive pulmonary disease) Exertional shortness of breath Surgical History History of total hysterectomy History of hernia repair Hx of cholecystectomy History of appendectomy Family History Other Asthma Coronary artery disease Diabetes Hyperlipidemia Hypertension Social History Smoking Status: Current every day smoker tobacco type: cigarettes packs per day: 1 alcohol intake: never substance use type: denies use current occupational status: other Travel in the last 8 weeks: None household members: spouse and children housing: house
== END 2023-11-11 23:59 | disposition home or self-care (01) ==
LOC: SC.PAIN 10:01
PROVIDERS: PCP Family Medicine; Visit Provider Nurse Practitioner Family
DX: M50.122 Cervical disc disorder at C5-C6 level with radiculopathy (principal); M54.50 Low back pain, unspecified; M46.1 Sacroiliitis, not elsewhere classified
CPT/HCPCS: 99212; G0463

== ENCOUNTER 2023-12-01 08:27 | Day surgery (SDC) | payer BC, SELFPAY ==
[2023-12-01 08:42] VITALS: BP 140/87; PULSE 85; RESP 18; TEMP 36.7; O2SAT 98; BMI 33.6
[2023-12-01 09:25] VITALS: BP 147/92; PULSE 74; RESP 18; O2SAT 98
[2023-12-01] MEDS: methylPREDNISolone ACETATE 80MG/ML VIAL 80 MG (09:29)
[2023-12-01 09:30] VITALS: BP 135/74; PULSE 76; RESP 20; O2SAT 99
[2023-12-01 09:31] VITALS: BP 135/74; PULSE 73; RESP 20; O2SAT 97
--- NOTE | 2023-12-01 09:43 | P.PCN_ITS ---
Procedure Date: 12/01/23 Time: 09:00 Anesthesiologist:: Blas Osuna CRNA Complications:: None Pre-procedure Diagnosis:: Degenerative disc cervical spine multilevels. Cervical radiculopathy. Post-procedure Diagnosis:: Same. Indications for Procedure:: Patient is a very pleasant 58-year-old female comes to clinic today for cervical epidural steroid injection. Patient reports posterior cervical neck pain as well as bilateral arm radicular symptoms into the hands including the fingers. Numbness and tingling in the hands. She rates her pain 6/10. Procedure Details:: Procedure:Cervical epidural steroid injection Informed consent was obtained and the risks and benefits of the procedure were explained to the patient. The patient was taken to the procedure room and noninvasive monitors placed, including noninvasive blood pressure cuff and pulse oximeter. The neck was prepped using Chloraprep as a cleansing solution. The C6- C7 interspace was viewed using fluroscopy. The skin and subcutaneous tissues were anesthetized using lidocaine 1.5% and a 25-gauge needle. After this an 18- gauge Touhy epidural needle was placed into the C6-C7 interspace under fluroscopy guidance and advanced using loss of resistance to air until the epidu ral space was encountered. After confirmation of needle placement in the epidural space using contrast dye, a solution containing normal saline, 2 mL and Depo-Medrol 80 mg was incrementally injected into the cervical epidural space.~ The patient tolerated the procedure well with no complications. The patient was observed in the Pain Clinic and then discharged home neurologically intact. Plan and Disposition:: Patient was discharged without incident.
== END 2023-12-01 09:35 | disposition home or self-care (01) ==
LOC: SC.PAINP 08:27
PROVIDERS: PCP Family Medicine; Visit Provider Nurse Anesthetist, Certified Registered
DX: M50.123 Cervical disc disorder at C6-C7 level with radiculopathy (principal)
CPT/HCPCS: 62321

== ENCOUNTER 2023-12-21 10:38 | Outpatient (POV) | payer BC, SELFPAY ==
--- NOTE | 2023-12-21 10:51 | EXP.PAIN.SOA ---
[facility] Pain Management SOAP Note Subjective:: Patient is a pleasant 58-year-old female who presents today for follow-up of cervical epidural steroid injection C6-C7. Today she rates her pain a 1 out of 10. Patient states that she is practically had 100% relief following this injection and feels like she can move around easier with overall decreased pain and improved function. Patient states that she feels like she is not sitting more at an angle with her neck turned due to the pain. Patient is prescribed [place] from an outside provider. Her Driss has been reviewed and is appropriate. Review of Systems: General: No recent weight changes, no fever, no sleep disturbances Respiratory: No cough, no shortness of air, no recurring pulmonary infections Cardiovascular/peripheral vascular: No chest pain, no palpitations, no edema, no shortness of breath Gastrointestinal: No new onset incontinence, normal bowel movements reported Genitourinary: No new onset incontinence Musculoskeletal: Neck pain Psychiatric: [Normal mood/affect] Neurological: [Denies weakness in extremities], [denies balance issues] Objective:: Physical Exam: General: Alert and oriented x3, no acute distress, pleasant and cooperative Lungs: Respirations even and unlabored, symmetrical chest expansion Eyes: PERRL Musculoskeletal: Flexion and extension of cervical [spine] somewhat guarded secondary to pain, [antalgic gait noted] Neurological: Speech clear, no gross sensory deficit Assessment:: Degenerative disc disease of cervical spine with cervical radiculopathy symptoms, low back pain, sacroiliitis Plan:: Patient has had significant improvement following her cervical epidural and does not require any additional injection therapy at this time. Patient will return to clinic in 1 month for reevaluation of symptoms and plan of care. Patient has been instructed to contact the clinic with any concerns before the next appointment. Dr. Ramirez has reviewed this note and agrees with this plan of care. This note was dictated using voice recognition software and make contain errors or omissions. [facility] Disclaimer: The information contained in this section may have been updated after the patient was seen, as this information can be updated by other users. Medical History Allergic rhinitis Tobacco abuse disorder Tobacco abuse counseling Screening for lung cancer Smoking greater than 30 pack years COPD (chronic obstructive pulmonary disease) Exertional shortness of breath Surgical History History of total hysterectomy History of hernia repair Hx of cholecystectomy History of appendectomy Family History Other Asthma Coronary artery disease Diabetes Hyperlipidemia Hypertension Social History Smoking Status: Current every day smoker tobacco type: cigarettes packs per day: 1 alcohol intake: never substance use type: denies use current occupational status: other Travel in the last 8 weeks: None household members: spouse and children housing: house
[2023-12-21 11:45] VITALS: BP 122/62; PULSE 87; RESP 18; O2SAT 95; BMI 71.8
== END 2023-12-21 23:59 | disposition home or self-care (01) ==
LOC: SC.PAIN 10:39
PROVIDERS: PCP Family Medicine; Visit Provider Nurse Practitioner Family
DX: M50.123 Cervical disc disorder at C6-C7 level with radiculopathy (principal); M54.50 Low back pain, unspecified; M46.1 Sacroiliitis, not elsewhere classified
CPT/HCPCS: 99212; G0463

== ENCOUNTER 2024-01-20 11:29 | Outpatient (POV) | payer BC, SELFPAY ==
[2024-01-20 11:37] VITALS: BP 154/89; PULSE 98; RESP 16; O2SAT 96; BMI 32.9
--- NOTE | 2024-01-20 11:59 | EXP.PAIN.SOA ---
[facility] Disclaimer: The information contained in this section may have been updated after the patient was seen, as this information can be updated by other users. Medical History Allergic rhinitis Tobacco abuse disorder Tobacco abuse counseling Screening for lung cancer Smoking greater than 30 pack years COPD (chronic obstructive pulmonary disease) Exertional shortness of breath Surgical History History of total hysterectomy History of hernia repair Hx of cholecystectomy History of appendectomy Family History Other Asthma Coronary artery disease Diabetes Hyperlipidemia Hypertension Social History Smoking Status: Current every day smoker tobacco type: cigarettes packs per day: 1 alcohol intake: never substance use type: denies use current occupational status: other Travel in the last 8 weeks: None household members: spouse and children housing: house PM Subjective & Objective Subjective Subjective:: Patient is a pleasant 58-year-old female who presents today for 1 month follow-up. Today she rates her pain a 1 out of 10. Patient states that she has not had any new injury or traumas. Patient does state that she had 1 day that she was worried that the pain was coming back however the next day it was back to feeling better and was able to move around. Patient did have a cervical epidural in the past that did provide 100% relief and she does state today that she feels like it is still working well. Patient is prescribed [place] from an outside provider. Her Driss has been reviewed and is appropriate. Review of Systems: General: No recent weight changes, no fever, no sleep disturbances Respiratory: No cough, no shortness of air, no recurring pulmonary infections Cardiovascular/peripheral vascular: No chest pain, no palpitations, no edema, no shortness of breath Gastrointestinal: No new onset incontinence, normal bowel movements reported Genitourinary: No new onset incontinence Musculoskeletal: Neck pain Psychiatric: [Normal mood/affect] Neurological: [Denies weakness in extremities], [denies balance issues] Pain at rest (0-10 scale): 1 Objective Objective:: Physical Exam: General: Alert and oriented x3, no acute distress, pleasant and cooperative Lungs: Respirations even and unlabored, symmetrical chest expansion Eyes: PERRL Musculoskeletal: Flexion and extension of cervical [spine] somewhat guarded secondary to pain, [antalgic gait noted] Neurological: Speech clear, no gross sensory deficit Has patient had previous pain injection?: No Conservative treatment options previously tried: Home exercise plan Length of treatment: Longer than 6 weeks Meds Home Medications and Allergies Home Medications Medication Instructions Recorded Confirmed Type gemfibrozil 600 mg tablet See Rx Instructions .Route 05/16/22 01/20/24 Rx .COMPLEX #180 tabs albuterol sulfate 90 mcg/actuation 2 inh inhalation Q6H PRN shortness 10/03/22 01/20/24 Rx aerosol inhaler of breath or wheezing 90 days #8.5 grams fluticasone propionate 50 1 spray intranasal BID 90 days #16 10/03/22 01/20/24 Rx mcg/actuation nasal grams spray,suspension (Flonase Allergy Relief) levothyroxine 200 mcg tablet See Rx Instructions .Route 10/19/23 01/20/24 Rx .COMPLEX #90 tabs paroxetine HCl 20 mg tablet (Paxil) 20 mg PO DAILY #90 tabs 10/19/23 01/20/24 Rx diphenhydramine HCl 25 mg capsule See Rx Instructions .Route 10/28/23 01/20/24 Rx (Benadryl) .COMPLEX #2 caps lisinopril 20 mg tablet 20 mg PO DAILY #90 tabs 11/24/23 01/20/24 Rx umeclidinium 62.5 mcg-vilanterol See Rx Instructions .Route 11/24/23 01/20/24 Rx 25 mcg/actuation powdr for .COMPLEX #60 ea inhalation (Anoro Ellipta) New Prescriptions to Start Prescriptions: Allergies Allergy/AdvReac Type Severity Reaction Status Date / Time estrogens, conjugated Allergy Severe Hives Verified 10/19/23 10:40 [From Premarin] Iodinated Contrast Media Allergy Unknown Verified 10/19/23 10:40 flu vaccine Allergy rash Uncoded 10/19/23 10:40 Assessment and Plan *Assessment and plan (1) DDD (degenerative disc disease): Status: Acute Qualifiers: Spinal region: lumbar Qualified Code(s): M51.36 - Other intervertebral disc degeneration, lumbar region Category: Medical (2) Cervical radiculopathy: Status: Acute Category: Medical Code(s): M54.12 - Radiculopathy, cervical region Plan Patient is still getting significant relief following her cervical epidural but she had back in October/November. Patient will return to clinic in 3 months for reevaluation of symptoms and plan of care. Patient has been instructed to contact the clinic with any concerns before the next appointment. Dr. Ramirez has reviewed this note and agrees with this plan of care. This note was dictated using voice recognition software and make contain errors or omissions.
== END 2024-01-20 23:59 | disposition home or self-care (01) ==
LOC: SC.PAIN 11:30
PROVIDERS: PCP Family Medicine; Visit Provider Nurse Practitioner Family
DX: M51.36 Other intervertebral disc degeneration, lumbar region (principal); M54.12 Radiculopathy, cervical region; J44.9 Chronic obstructive pulmonary disease, unspecified; F17.210 Nicotine dependence, cigarettes, uncomplicated; Z79.899 Other long term (current) drug therapy
CPT/HCPCS: 99212; G0463

== ENCOUNTER 2024-01-21 13:42 | Outpatient (CLI) | payer BC, SELFPAY ==
[2024-01-21 19:29] LABS: T4 (Thyroxine) 16.7 ug/dl (5.53-11.0)
[2024-01-21 19:42] LABS: Thyroid Stimulating Hormone < 0.02 uIU/mL (0.465-4.68)
== END 2024-01-21 23:59 | disposition home or self-care (01) ==
LOC: LAB.DROPOF 01-22 13:42
PROVIDERS: PCP Family Medicine; Visit Provider Family Medicine
DX: G47.429 Narcolepsy in conditions classified elsewhere without cataplexy (principal)
CPT/HCPCS: 84436; 84443

== ENCOUNTER 2024-04-21 09:39 | Outpatient (POV) | payer BC, SELFPAY ==
--- NOTE | 2024-04-21 10:16 | A.OFFVIS_ITS ---
[facility] Disclaimer: The information contained in this section may have been updated after the patient was seen, as this information can be updated by other users. Medical History Allergic rhinitis Tobacco abuse disorder Tobacco abuse counseling Screening for lung cancer Smoking greater than 30 pack years COPD (chronic obstructive pulmonary disease) Exertional shortness of breath Surgical History History of total hysterectomy History of hernia repair Hx of cholecystectomy History of appendectomy Family History Other Asthma Coronary artery disease Diabetes Hyperlipidemia Hypertension Social History Smoking Status: Current every day smoker tobacco type: cigarettes packs per day: 1 alcohol intake: never substance use type: denies use current occupational status: other Travel in the last 8 weeks: None household members: spouse and children housing: house PM Subjective & Objective Subjective Subjective:: Patient is a pleasant 58-year-old female who presents today for follow-up. Today she rates her pain a 4 out of 10. Patient denies any new trauma or injury. She does state over the last 4 to 5 weeks she has been having a random crawling sensation that comes across her back and does itch. She states that it has some numbness and tingling. Patient denies any changes in her laundry detergent or any other changes overall. Patient did previously get a cervical e pidural that did provide significant relief of upwards of 100% and is still helping somewhat. She states the pain is somewhat more present than what it was last visit however it is still currently manageable. Patient does state that a lot of the cold rainy weather does seem to aggravate her overall symptoms and feels like in future she would definitely need an injection. Her Driss has been reviewed and is appropriate. Review of Systems: General: No recent weight changes, no fever, no sleep disturbances Respiratory: No cough, no shortness of air, no recurring pulmonary infections Cardiovascular/peripheral vascular: No chest pain, no palpitations, no edema, no shortness of breath Gastrointestinal: No new onset incontinence, normal bowel movements reported Genitourinary: No new onset incontinence Musculoskeletal: Itching sensation, neck pain Psychiatric: [Normal mood/affect] Neurological: [Denies weakness in extremities], [denies balance issues] Pain at rest (0-10 scale): 4 Objective Objective:: Physical Exam: General: Alert and oriented x3, no acute distress, pleasant and cooperative Lungs: Respirations even and unlabored, symmetrical chest expansion Eyes: PERRL Musculoskeletal: Flexion and extension of cervical [spine] somewhat guarded secondary to pain, [antalgic gait noted] Neurological: Speech clear, no gross sensory deficit Has patient had previous pain injection?: No Conservative treatment options previously tried: Home exercise plan Length of treatment: Longer than 12 weeks Meds Home Medications and Allergies Home Medications ?Medication ?Instructions ?Recorded ?Confirmed ?Type fluticasone propionate 50 1 spray intranasal BID 90 days #16 10/03/22 04/21/24 Rx mcg/actuation nasal grams spray,suspension (Flonase Allergy Relief) paroxetine HCl 20 mg tablet (Paxil) 20 mg PO DAILY #90 tabs 10/19/23 04/21/24 Rx diphenhydramine HCl 25 mg capsule See Rx Instructions .Route 10/28/23 04/21/24 Rx (Benadryl) .COMPLEX #2 caps lisinopril 20 mg tablet 20 mg PO DAILY #90 tabs 11/24/23 04/21/24 Rx varenicline 0.5 mg (11)-1 mg (42) See Rx Instructions PO PER PKG DIR 01/21/24 04/21/24 Rx tablets in a dose pack (Chantix #53 tabs Starting Month Box) varenicline 1 mg tablet (Chantix 1 mg PO BID #56 tabs 01/21/24 04/21/24 Rx Continuing Month Box) levothyroxine 150 mcg tablet 150 mcg PO DAILY #90 tabs 01/22/24 04/21/24 Rx (Synthroid) umeclidinium 62.5 mcg-vilanterol See Rx Instructions .Route 01/25/24 04/21/24 Rx 25 mcg/actuation powdr for .COMPLEX #60 ea inhalation (Anoro Ellipta) albuterol sulfate 90 mcg/actuation 2 inh inhalation Q6H PRN shortness 04/14/24 04/21/24 Rx aerosol inhaler of breath or wheezing 90 days #8.5 grams hydroxyzine HCl 10 mg tablet 10 mg PO HS PRN itching #30 tabs 04/21/24 Rx New Prescriptions to Start Prescriptions: hydroxyzine HCl Karina Chirinos Allergies Allergy/AdvReac Type Severity Reaction Status Date / Time estrogens, conjugated Allergy Severe Hives Verified 01/21/24 09:33 [From Premarin] Iodinated Contrast Media Allergy Unknown Verified 01/21/24 09:33 flu vaccine Allergy rash Uncoded 01/21/24 09:33 Assessment and Plan *Assessment and plan (1) Cervical radiculopathy: Status: Acute Category: Medical Code(s): M54.12 - Radiculopathy, cervical region Plan I did discuss with the patient due to the new itching sensation that is unrelieved with hydrocortisone cream or other antihistamines that I will send in a prescription of hydroxyzine 10 mg daily as needed with 30 tablets. Patient will return to clinic in 1 month for reevaluation of symptoms and plan of care. Patient has been instructed to contact the clinic with any concerns before the next appointment. Dr. Ramirez has reviewed this note and agrees with this plan of care. This note was dictated using voice recognition software and make contain errors or omissions. All injections are used with Lidocaine or Bupivacaine and Depo Medrol.
[2024-04-21 10:50] VITALS: BP 139/80; PULSE 69; RESP 16; O2SAT 97; BMI 33.3
== END 2024-04-21 23:59 | disposition home or self-care (01) ==
PROVIDERS: PCP Family Medicine; Visit Provider Nurse Practitioner Family
DX: M54.12 Radiculopathy, cervical region (principal); F17.210 Nicotine dependence, cigarettes, uncomplicated
CPT/HCPCS: 99212; G0463

== ENCOUNTER 2024-05-05 12:45 | Outpatient (CLI) | payer BC, SELFPAY ==
[2024-05-05 19:34] LABS: Basophils # 0.1 K/mm3 (0-0.2); Basophils % 1.1 % (0.1-2.0); Eosinophils # 0.4 K/mm3 (0.0-0.4); Eosinophils % 3.1 % (0.1-12.0); Hemoglobin 15.6 g/dL (12.2-16.2); Lymphocytes # 3.6 K/mm3 (0.7-4.5); Mean Corpuscular HGB Conc 33.8 g/dL (31.8-35.4); Mean Corpuscular Hemoglobin 29.6 pg (27.0-31.2); Mean Corpuscular Volume 87.5 fl (81-99); Monocytes # 0.7 K/mm3 (0.1-1.0); Monocytes % 5.5 % (1.7-9.3); Neutrophils # 7.5 K/mm3 (1.8-7.8); Neutrophils % 61.3 % (37.0-80.0); Platelet Count 376 K/mm3 (142-424); Red Blood Count 5.25 M/mm3 (4.20-5.40); Red Cell Distribution Width 14.6 % (11.5-17.5); White Blood Count 12.2 K/mm3 (4.8-10.8)
[2024-05-05 20:09] LABS: Hemoglobin A1C 5.5 % (4.0-6.0)
[2024-05-05 20:17] LABS: Alanine Aminotransferase 28 U/L (12-78); Albumin Level 4.2 g/dl (3.5-5.0); Albumin/Globulin Ratio 1.4 (1.1-1.8); Alkaline Phosphatase 96 U/L (38-126); Anion Gap 12.6 mEq/L (5-15); Aspartate Amino Transferase 39 U/L (14-36); Bilirubin,Total 0.8 mg/dl (0.2-1.3); Blood Urea Nitrogen 20 mg/dl (7-17); Calcium 9.2 mg/dl (8.4-10.2); Carbon Dioxide 22 mmol/L (22.0-30.0); Chloride 108 mmol/L (98-107); Chol/HDL Ratio 5.2 (1-3.5); Cholesterol 204 mg/dl (140-200); Estimated Glomerular Filt Rate 64 ml/min (>60); GFR (African American) 77 ML/MIN (>60); Globulin 3.1 g/dL (1.3-3.2); Glucose 72 mg/dl (74-100); HDL Cholesterol 39 mg/dl (40-60); Potassium 4.6 mmoL/L (3.5-5.1); Sodium 138 mmol/L (136-145); Total Protein,Serum 7.3 g/dl (6.3-8.2); Triglycerides 211 mg/dl (30-150); VLDL Cholesterol 42 mg/dL (0-40)
[2024-05-05 20:28] LABS: Direct LDL Cholesterol 129.04 mg/dL (100-129)
== END 2024-05-05 23:59 | disposition home or self-care (01) ==
LOC: LAB.DROPOF 05-06 09:45
PROVIDERS: PCP Family Medicine; Visit Provider Family Medicine
DX: J44.9 Chronic obstructive pulmonary disease, unspecified (principal); G47.429 Narcolepsy in conditions classified elsewhere without cataplexy; Z87.19 Personal history of other diseases of the digestive system; Z72.0 Tobacco use
CPT/HCPCS: 80050; 80053; 80061; 83036; 84436; 84443; 85025

== ENCOUNTER 2024-06-13 09:50 | Outpatient (POV) | payer BC, SELFPAY ==
--- NOTE | 2024-06-13 09:59 | EXP.PAIN.SOA ---
[facility] Disclaimer: The information contained in this section may have been updated after the patient was seen, as this information can be updated by other users. Medical History Allergic rhinitis Tobacco abuse disorder Tobacco abuse counseling Screening for lung cancer Smoking greater than 30 pack years COPD (chronic obstructive pulmonary disease) Exertional shortness of breath Surgical History History of total hysterectomy History of hernia repair Hx of cholecystectomy History of appendectomy Family History Other Asthma Coronary artery disease Diabetes Hyperlipidemia Hypertension Social History Smoking Status: Current every day smoker tobacco type: cigarettes packs per day: 1 alcohol intake: never substance use type: denies use current occupational status: other Travel in the last 8 weeks: None household members: spouse and children housing: house PM Subjective & Objective Subjective Subjective:: Patient is a pleasant 58-year-old female who presents today for 1 month follow-up. Today she rates her pain a 3 out of 10. Patient denies any new trauma or injury. She does state that just as of Thursday she got diagnosed with lower lobe pneumonia and is now on antibiotics and other medications. Patient does state that she feels overall really bad related to this and that her neck symptoms have maintained. Patient was given a prescription of hydroxyzine for itching sensation across her low back at her last visit. Today she states that this did help. Patient states that it is still occasionally causing itching but it does vary day-to-day. Patient has gotten epidural injections that did provide significant relief in the past with her last 1 being in November providing 100% relief. Patient is interested in repeating these injections in the future. Her Driss has been reviewed and is appropriate. Review of Systems: General: No recent weight changes, no fever, no sleep disturbances Respiratory: No cough, no shortness of air, no recurring pulmonary infections Cardiovascular/peripheral vascular: No chest pain, no palpitations, no edema, no shortness of breath Gastrointestinal: No new onset incontinence, normal bowel movements reported Genitourinary: No new onset incontinence Musculoskeletal: neck pain, breathing issues Psychiatric: [Normal mood/affect] Neurological: [Denies weakness in extremities], [denies balance issues] Pain at rest (0-10 scale): 3 Objective Objective:: Physical Exam: General: Alert and oriented x3, no acute distress, pleasant and cooperative Lungs: Respirations even and unlabored, symmetrical chest expansion Eyes: PERRL Musculoskeletal: Flexion and extension of cervical [spine] somewhat guarded secondary to pain, [antalgic gait noted] Neurological: Speech clear, no gross sensory deficit Has patient had previous pain injection?: No Conservative treatment options previously tried: Home exercise plan Length of treatment: Longer than 12 weeks Meds Home Medications and Allergies Home Medications ?Medication ?Instructions ?Recorded ?Confirmed ?Type diphenhydramine HCl 25 mg capsule See Rx Instructions .Route 10/28/23 05/05/24 Rx (Benadryl) .COMPLEX #2 caps varenicline 0.5 mg (11)-1 mg (42) See Rx Instructions PO PER PKG DIR 01/21/24 05/05/24 Rx tablets in a dose pack (Chantix #53 tabs Starting Month Box) varenicline 1 mg tablet (Chantix 1 mg PO BID #56 tabs 01/21/24 05/05/24 Rx Continuing Month Box) albuterol sulfate 90 mcg/actuation 2 inh inhalation Q6H PRN shortness 04/14/24 04/21/24 Rx aerosol inhaler of breath or wheezing 90 days #8.5 grams fluticasone propionate 50 1 spray intranasal BID 90 days #16 05/05/24 05/05/24 Rx mcg/actuation nasal grams spray,suspension (Flonase Allergy Relief) hydroxyzine HCl 10 mg tablet 10 mg PO HS PRN itching #90 tabs 05/05/24 05/05/24 Rx lisinopril 20 mg tablet 20 mg PO DAILY #90 tabs 05/05/24 05/05/24 Rx paroxetine HCl 20 mg tablet (Paxil) 20 mg PO DAILY #90 tabs 05/05/24 05/05/24 Rx umeclidinium 62.5 mcg-vilanterol See Rx Instructions .Route 05/05/24 05/05/24 Rx 25 mcg/actuation powdr for .COMPLEX #60 ea inhalation (Anoro Ellipta) levothyroxine 175 mcg tablet 175 mcg PO DAILY #90 tabs 05/06/24 Rx (Synthroid) albuterol sulfate 2.5 mg/3 mL 2.5 mg (3 mL) inhalation Q6H #720 06/07/24 Rx (0.083 %) solution for nebulization mL New Prescriptions to Start Prescriptions: Allergies Allergy/AdvReac Type Severity Reaction Status Date / Time estrogens, conjugated (From Allergy Severe Hives Verified 05/05/24 11:40 Premarin) Iodinated Contrast Media Allergy Unknown Verified 05/05/24 11:40 flu vaccine Allergy rash Uncoded 05/05/24 11:40 Assessment and Plan *Assessment and plan (1) Cervical radiculopathy: Status: Acute Category: Medical Code(s): M54.12 - Radiculopathy, cervical region (2) DDD (degenerative disc disease): Status: Acute Qualifiers: Spinal region: lumbar Qualified Code(s): M51.36 - Other intervertebral disc degeneration, lumbar region Category: Medical Plan Patient is currently on antibiotic for her pneumonia and is having a lot more respiratory issues. I have counseled her that since the hydroxyzine medication did help with the itching I will send an additional refill and we will follow-up with her in 1 month for reevaluation of symptoms and plan of care. Patient has been instructed to contact the clinic with any concerns before the next appointment. Dr. Ramirez has reviewed this note and agrees with this plan of care. This note was dictated using voice recognition software and make contain errors or omissions. All injections are used with Lidocaine or Bupivacaine and Depo Medrol.
[2024-06-13 10:17] VITALS: BP 147/92; PULSE 80; RESP 18; O2SAT 96; BMI 33.6
== END 2024-06-13 23:59 | disposition home or self-care (01) ==
PROVIDERS: PCP Family Medicine; Visit Provider Nurse Practitioner Family
DX: M54.12 Radiculopathy, cervical region (principal); M51.369 Other intervertebral disc degeneration, lumbar region without mention of lumbar back pain or lower extremity pain; F17.210 Nicotine dependence, cigarettes, uncomplicated
CPT/HCPCS: 99212; G0463

== ENCOUNTER 2024-07-25 10:06 | Outpatient (POV) | payer BC, SELFPAY ==
--- NOTE | 2024-07-25 10:14 | EXP.PAIN.SOA ---
[facility] Disclaimer: The information contained in this section may have been updated after the patient was seen, as this information can be updated by other users. Medical History Allergic rhinitis Tobacco abuse disorder Tobacco abuse counseling Screening for lung cancer Smoking greater than 30 pack years COPD (chronic obstructive pulmonary disease) Exertional shortness of breath Surgical History History of total hysterectomy History of hernia repair Hx of cholecystectomy History of appendectomy Family History Diabetes Coronary artery disease Hyperlipidemia Hypertension Asthma Social History Smoking Status: Current every day smoker tobacco type: cigarettes packs per day: 1 alcohol intake: never substance use type: denies use current occupational status: other Travel in the last 8 weeks: None household members: spouse and children housing: house PM Subjective & Objective Subjective Subjective:: Patient is a pleasant 58-year-old female who presents today for 1 month follow-up. Today she rates her pain a 9 out of 10. Patient denies any new trauma or injury. She does state that the pneumonia has gotten much better but she still feels like she has a little residual. She does state that she is having severe pain in her neck with numbness and tingling into her upper extremities as well as low back pain into her hips. Patient does state that the neck symptoms are worse than the low back symptoms. She does state it is interfering with her ability to perform activities of daily living such as cooking and cleaning. Patient did previously have a cervical epidural back in November that did provide 100% relief lasting longer than 3 months. She does state that she would like to see about repeating this. She does also mention that the itching has improved from her last visit. She was prescribed hydroxyzine 10 mg at bedtime. Her Driss has been reviewed and is appropriate. Review of Systems: General: No recent weight changes, no fever, no sleep disturbances Respiratory: No cough, no shortness of air, no recurring pulmonary infections Cardiovascular/peripheral vascular: No chest pain, no palpitations, no edema, no shortness of breath Gastrointestinal: No new onset incontinence, normal bowel movements reported Genitourinary: No new onset incontinence Musculoskeletal: neck pain, bilateral arm numbness tingling Psychiatric: [Normal mood/affect] Neurological: [Denies weakness in extremities], [denies balance issues] Pain at rest (0-10 scale): 9 Objective Objective:: Physical Exam: General: Alert and oriented x3, no acute distress, pleasant and cooperative Lungs: Respirations even and unlabored, symmetrical chest expansion Eyes: PERRL Musculoskeletal: Flexion and extension of cervical [spine] somewhat guarded secondary to pain, [antalgic gait noted] positive Spurling's test Neurological: Speech clear, no gross sensory deficit Has patient had previous pain injection?: No Conservative treatment options previously tried: Home exercise plan Length of treatment: Longer than 12 weeks Meds Home Medications and Allergies Home Medications ?Medication ?Instructions ?Recorded ?Confirmed ?Type diphenhydramine HCl 25 mg capsule See Rx Instructions .Route 10/28/23 06/24/24 Rx (Benadryl) .COMPLEX #2 caps varenicline tartrate 0.5 mg (11)-1 See Rx Instructions PO PER PKG DIR 01/21/24 06/24/24 Rx mg (42) tablets in a dose pack #53 tabs (Chantix Starting Month Box) varenicline tartrate 1 mg tablet 1 mg PO BID #56 tabs 01/21/24 06/24/24 Rx (Chantix Continuing Month Box) albuterol sulfate 90 mcg/actuation 2 inh inhalation Q6H PRN shortness 04/14/24 06/24/24 Rx aerosol inhaler of breath or wheezing 90 days #8.5 grams fluticasone propionate 50 1 spray intranasal BID 90 days #16 05/05/24 06/24/24 Rx mcg/actuation nasal grams spray,suspension (Flonase Allergy Relief) hydroxyzine HCl 10 mg tablet 10 mg PO HS PRN itching #90 tabs 05/05/24 06/24/24 Rx lisinopril 20 mg tablet 20 mg PO DAILY #90 tabs 05/05/24 06/24/24 Rx paroxetine HCl 20 mg tablet (Paxil) 20 mg PO DAILY #90 tabs 05/05/24 06/24/24 Rx umeclidinium 62.5 mcg-vilanterol See Rx Instructions .Route 10/31/24 12/20/24 Rx 25 mcg/actuation powdr for .COMPLEX #60 ea inhalation (Anoro Ellipta) levothyroxine 175 mcg tablet 175 mcg PO DAILY #90 tabs 05/06/24 06/24/24 Rx (Synthroid) albuterol sulfate 2.5 mg/3 mL 2.5 mg (3 mL) inhalation Q6H #720 06/07/24 06/24/24 Rx (0.083 %) solution for nebulization mL benzonatate 200 mg capsule 200 mg PO TID PRN cough #90 caps 06/24/24 06/24/24 Rx ipratropium 0.5 mg-albuterol 3 mg 3 ml inhalation Q6H PRN shortness 06/24/24 06/24/24 Rx (2.5 mg base)/3 mL nebulization of breath #180 mL soln prochlorperazine maleate 10 mg 10 mg PO Q6H PRN nausea and 07/08/24 Rx tablet (Compazine) vomiting #60 tabs New Prescriptions to Start Prescriptions: Allergies Allergy/AdvReac Type Severity Reaction Status Date / Time estrogens, conjugated (From Allergy Severe Hives Verified 06/24/24 14:06 Premarin) Iodinated Contrast Media Allergy Unknown Verified 06/24/24 14:06 flu vaccine Allergy rash Uncoded 06/24/24 14:06 Assessment and Plan *Assessment and plan (1) Cervical radiculopathy: Status: Acute Category: Medical Code(s): M54.12 - Radiculopathy, cervical region (2) DDD (degenerative disc disease): Status: Acute Qualifiers: Spinal region: lumbar Qualified Code(s): M51.36 - Other intervertebral disc degeneration, lumbar region Category: Medical Plan Patient is experiencing worsening pain in her neck with numbness and tingling into her upper extremities. Patient did have limited range of motion of her cervical spine with a positive Spurling's test. I did discuss with the patient that I do believe that she would benefit from a repeat cervical epidural steroid injection. Risk and benefits were discussed with the patient and she would like to proceed forward with this plan of care. Patient has tried and failed conservative therapy including oral medications, heat and ice, topicals, at home stretching exercise that was physician guided for longer than 12 weeks in between injections. Patient's last cervical epidural was in November 2023 that did provide 100% relief lasting more than 3 months. Patient had improved function with decreased pain. We will refill her hydroxyzine. Patient will be scheduled for a ELSY C6 or C7 under fluoroscopy. Patient has been instructed to contact the clinic with any concerns before the next appointment. Dr. Ramirez has reviewed this note and agrees with this plan of care. This note was dictated using voice recognition software and make contain errors or omissions. All injections are used with Lidocaine, Bupivacaine and Depo Medrol. Occasionally urine drug screen is needed to verify patient's compliance with our office pain contract. This is ordered based off specific treatments related to chronic pain with the potential to abuse certain medications.
[2024-07-25 10:42] VITALS: BP 159/89; PULSE 86; RESP 14; O2SAT 97; BMI 34.5
== END 2024-07-25 23:59 | disposition home or self-care (01) ==
PROVIDERS: PCP Family Medicine; Visit Provider Nurse Practitioner Family
DX: M54.12 Radiculopathy, cervical region (principal); M51.369 Other intervertebral disc degeneration, lumbar region without mention of lumbar back pain or lower extremity pain; F17.210 Nicotine dependence, cigarettes, uncomplicated; Z73.89 Other problems related to life management difficulty; Z79.899 Other long term (current) drug therapy
CPT/HCPCS: 99212; G0463

== ENCOUNTER 2024-08-09 10:02 | Day surgery (SDC) | payer BC, SELFPAY ==
[2024-08-09 10:26] VITALS: BP 119/66; PULSE 79; RESP 16; TEMP 36.8; O2SAT 95; BMI 35.4
[2024-08-09 10:56] VITALS: BP 136/83; PULSE 88; RESP 16; O2SAT 96
--- NOTE | 2024-08-09 10:57 | P.PCN_ITS ---
Procedure Date: 08/09/24 Time: 10:30 Anesthesiologist:: Blas Osuna CRNA Complications:: None Pre-procedure Diagnosis:: Degenerative disc cervical spine multilevels. Cervical radiculopathy. Post-procedure Diagnosis:: Same Indications for Procedure:: Patient is a pleasant 58-year-old female who comes our clinic today for cervical epidural steroid injection. Patient describes posterior cervical neck pain as well as bilateral arm radicular symptoms. She rates her pain 7/10. Procedure Details:: Procedure:Cervical epidural steroid injection Informed consent was obtained and the risks and benefits of the procedure were explained to the patient. The patient was taken to the procedure room and noninvasive monitors placed, including noninvasive blood pressure cuff and pulse oximeter. The neck was prepped using Chloraprep as a cleansing solution. The C6- C7 interspace was viewed using fluroscopy. The skin and subcutaneous tissues were anesthetized using lidocaine 1.5% and a 25-gauge needle. After this an 18- gauge Touhy epidural needle was placed into the C6-C7 interspace under fluroscopy guidance and advanced using loss of resistance to air until the epidural space was encountered. After confirmation of needle placement in the epidural space using contrast dye, a solution containing normal saline, 2 mL and Depo-Medrol 80 mg was incrementally injected into the cervical epidural space.~ The patient tolerated the procedure well with no complications. The patient was observed in the Pain Clinic and then discharged home neurologically intact. Plan and Disposition:: Patient was discharged without incident.
[2024-08-09 11:18] VITALS: BP 150/90; PULSE 82; RESP 18; O2SAT 93
[2024-08-09] MEDS: methylPREDNISolone ACETATE 80MG/ML VIAL 80 MG (11:18)
== END 2024-08-09 10:56 | disposition home or self-care (01) ==
PROVIDERS: PCP Family Medicine; Visit Provider Nurse Anesthetist, Certified Registered
DX: M50.30 Other cervical disc degeneration, unspecified cervical region (principal); M54.12 Radiculopathy, cervical region
CPT/HCPCS: 62321; J1010

== ENCOUNTER 2024-08-29 09:24 | Outpatient (POV) | payer BC, SELFPAY ==
[2024-08-29 09:30] VITALS: BP 169/106; PULSE 83; RESP 16; O2SAT 97; BMI 34.5
--- NOTE | 2024-08-29 09:41 | A.OFFVIS_ITS ---
[facility] Disclaimer: The information contained in this section may have been updated after the patient was seen, as this information can be updated by other users. Medical History Allergic rhinitis Tobacco abuse disorder Tobacco abuse counseling Screening for lung cancer Smoking greater than 30 pack years COPD (chronic obstructive pulmonary disease) Exertional shortness of breath Surgical History History of total hysterectomy History of hernia repair Hx of cholecystectomy History of appendectomy Family History Other Asthma Coronary artery disease Diabetes Hyperlipidemia Hypertension Social History Smoking Status: Current every day smoker tobacco type: cigarettes packs per day: 1 alcohol intake: never substance use type: denies use current occupational status: other Travel in the last 8 weeks: None household members: spouse and children housing: house PM Subjective & Objective Subjective Subjective:: Patient is a pleasant 58-year-old female who presents today for follow-up of cervical epidural steroid injection C6-C7 on 08/09/2024. Today she rates her pain a 1 out of 10 in her neck however a 9 out of 10 in her low back and hip area up. Patient states that she has had at least 90% improvement following the cervical epidural and feels like it is still working well. She does state this time it was really sore initially after the procedure and it did actually take 5 days for it to officially kick in however once it did it really decrease the severity and made her pain much more manageable they are in her neck. Patient does state that her pain that is really bothering her now is the low back and hips and that it is a aching, twisting sensation that is constant and really interfering with her ability perform activities of daily living such as cooking and cleaning. Patient denies any recent falls or injuries. Her Driss has been reviewed and is appropriate. Review of Systems: General: No recent weight changes, no fever, no sleep disturbances Respiratory: No cough, no shortness of air, no recurring pulmonary infections Cardiovascular/peripheral vascular: No chest pain, no palpitations, no edema, no shortness of breath Gastrointestinal: No new onset incontinence, normal bowel movements reported Genitourinary: No new onset incontinence Musculoskeletal: Low back pain, bilateral hip pain Psychiatric: [Normal mood/affect] Neurological: [Denies weakness in extremities], [denies balance issues] Pain at rest (0-10 scale): 9 Objective Objective:: Physical Exam: General: Alert and oriented x3, no acute distress, pleasant and cooperative Lungs: Respirations even and unlabored, symmetrical chest expansion Eyes: PERRL Musculoskeletal: Flexion and extension of lumbar [spine] somewhat guarded secondary to pain, [antalgic gait noted] point tenderness along bilateral SIs with positive bilateral Elvis's, Briseyda's, Gaenslen's, compression and distraction exam Neurological: Speech clear, no gross sensory deficit Has patient had previous pain injection?: Yes Percent improvement in pain since last injection: 90% Conservative treatment options previously tried: Home exercise plan Length of treatment: Longer than 12 weeks Meds Home Medications and Allergies Home Medications ?Medication ?Instructions ?Recorded ?Confirmed ?Type diphenhydramine HCl 25 mg capsule See Rx Instructions .Route 10/28/23 08/29/24 Rx (Benadryl) .COMPLEX #2 caps varenicline tartrate 0.5 mg (11)-1 See Rx Instructions PO PER PKG DIR 01/21/24 08/29/24 Rx mg (42) tablets in a dose pack #53 tabs (Chantix Starting Month Box) varenicline tartrate 1 mg tablet 1 mg PO BID #56 tabs 01/21/24 08/29/24 Rx (Chantix Continuing Month Box) albuterol sulfate 90 mcg/actuation 2 inh inhalation Q6H PRN shortness 04/14/24 08/29/24 Rx aerosol inhaler of breath or wheezing 90 days #8.5 grams fluticasone propionate 50 1 spray intranasal BID 90 days #16 05/05/24 08/29/24 Rx mcg/actuation nasal grams spray,suspension (Flonase Allergy Relief) lisinopril 20 mg tablet 20 mg PO DAILY #90 tabs 05/05/24 08/29/24 Rx paroxetine HCl 20 mg tablet (Paxil) 20 mg PO DAILY #90 tabs 05/05/24 08/29/24 Rx umeclidinium 62.5 mcg-vilanterol See Rx Instructions .Route 05/05/24 08/29/24 Rx 25 mcg/actuation powdr for .COMPLEX #60 ea inhalation (Anoro Ellipta) levothyroxine 175 mcg tablet 175 mcg PO DAILY #90 tabs 05/06/24 08/29/24 Rx (Synthroid) albuterol sulfate 2.5 mg/3 mL 2.5 mg (3 mL) inhalation Q6H #720 06/07/24 08/29/24 Rx (0.083 %) solution for nebulization mL benzonatate 200 mg capsule 200 mg PO TID PRN cough #90 caps 06/24/24 08/29/24 Rx ipratropium 0.5 mg-albuterol 3 mg 3 ml inhalation Q6H PRN shortness 06/24/24 08/29/24 Rx (2.5 mg base)/3 mL nebulization of breath #180 mL soln prochlorperazine maleate 10 mg 10 mg PO Q6H PRN nausea and 07/08/24 08/29/24 Rx tablet (Compazine) vomiting #60 tabs hydroxyzine HCl 10 mg tablet 10 mg PO HS PRN itching #30 tabs 07/25/24 08/29/24 Rx azithromycin 500 mg tablet 500 mg PO DAILY 3 days #3 tabs 07/28/24 08/29/24 Rx cefdinir 300 mg capsule 300 mg PO BID 10 days #20 caps 07/28/24 08/29/24 Rx fluconazole 150 mg tablet 150 mg PO Q3D 2 doses #2 tabs 07/28/24 08/29/24 Rx lorazepam 2 mg tablet 2 mg PO DAILY PRN anxiety #20 tabs 07/28/24 08/29/24 Rx prednisone 20 mg tablet See Rx Instructions PO DAILY #21 07/28/24 08/29/24 Rx tabs New Prescriptions to Start Prescriptions: Allergies Allergy/AdvReac Type Severity Reaction Status Date / Time estrogens, conjugated (From Allergy Severe Hives Verified 08/29/24 09:31 Premarin) Iodinated Contrast Media Allergy Unknown Unknown Verified 08/29/24 09:31 allergy reaction flu vaccine Allergy rash Uncoded 07/28/24 10:05 Assessment and Plan *Assessment and plan (1) Sacroiliitis: Status: Acute Category: Medical Code(s): M46.1 - Sacroiliitis, not elsewhere classified Plan Patient is experiencing worsening pain along the low back and bilateral hips. They did have limited range of motion of the lumbar spine along with point tenderness along bilateral SI joints and a positive bilateral Elvis's, Briseyda's, Gaenslen's, compression and distraction exam. I did discuss with the patient that I do believe they would benefit from bilateral SI injections. Risk and benefits were discussed with the patient and they would like to proceed forward with this option. Patient has tried and failed conservative therapy including continued at home stretching exercise for longer than 12 weeks between injections. Patient does have a history of chronic sacroiliitis that has been going on for longer than 1 year. Patient did previously have her last SI injection back in October 2023 that did provide 90% relief and lasted more than 3 months. Patient states that she has not had any flareups up until the last couple of weeks. patient will be scheduled for bilateral SI injections under fluoroscopy. Patient has been instructed to contact the clinic with any concerns before the next appointment. Dr. Ramirez has reviewed this note and agrees with this plan of care. This note was dictated using voice recognition software and make contain errors or omissions. All injections are used with Lidocaine or Bupivacaine and Depo Medrol.
== END 2024-08-29 23:59 | disposition home or self-care (01) ==
LOC: SC.PAIN 09:25
PROVIDERS: PCP Family Medicine; Visit Provider Nurse Practitioner Family
DX: M46.1 Sacroiliitis, not elsewhere classified (principal); F17.210 Nicotine dependence, cigarettes, uncomplicated; Z73.89 Other problems related to life management difficulty
CPT/HCPCS: 99212; G0463

== ENCOUNTER 2024-09-20 10:07 | Day surgery (SDC) | payer BC, SELFPAY ==
[2024-09-20 10:13] VITALS: BP 147/85; PULSE 80; RESP 16; TEMP 36.8; O2SAT 95; BMI 34.5
[2024-09-20] MEDS: BUPIVACAINE 0.25% 10ML INJ 25 MG IJ (10:26)
[2024-09-20] MEDS: LIDOCAINE 1% 5ML PF VIAL 5 ML (10:26)
[2024-09-20] MEDS: methylPREDNISolone ACETATE 80MG/ML VIAL 80 MG (10:26)
[2024-09-20 10:29] VITALS: BP 129/87; PULSE 81; RESP 18; O2SAT 95
[2024-09-20 10:34] VITALS: BP 143/79; PULSE 78; RESP 16; O2SAT 95
[2024-09-20 10:35] VITALS: BP 129/87; PULSE 81; RESP 18; O2SAT 95
--- NOTE | 2024-09-20 11:02 | P.PCN_ITS ---
Procedure Date: 09/20/24 Time: 10:45 Anesthesiologist:: Blas Osuna CRNA Complications:: None Pre-procedure Diagnosis:: Bilateral sacroiliitis Post-procedure Diagnosis:: Same Indications for Procedure:: Patient is a very pleasant 58-year-old female comes our clinic today for bilateral sacroiliac joint injections cortisone local anesthetic. Patient describes low lumbar back pain off midline bilaterally. Bilateral posterior hip pain. Difficulty with transitioning from sitting to standing. She rates her pain 8/10. Procedure Details:: Procedure: Bilateral sacroiliac joint injections under fluoroscopy Informed consent was obtained and the risks and benefits of the procedure were explained to the patient.~ The patient was taken to the procedure room and noninvasive monitors were placed including a noninvasive blood pressure cuff and pulse oximeter.~ The patient was placed prone on the procedure table. Both hips were cleansed using Betadine as a cleansing solution. C-arm fluoroscopy was used to view the right sacroiliac joint.~ The skin and subcutaneous tissues were anesthetized using lidocaine 1.5% and a 25-gauge needle.~ After this, a 22-gauge spinal needle was inserted under fluoroscopic guidance into the inferior aspect of the right sacroiliac joint.~ Omnipaque dye was injected and good spread was seen throughout the joint.~ After this, approximately 5 mL of bupivacaine, 0.25% and Depo-Medrol, 40 mg was incrementally injected into the right sacroiliac joint. We then moved to the left sacroiliac joint.~ The skin and subcutaneous tissues were anesthetized using lidocaine 1.5% and a 25-gauge needle.~ After this, a 22- gauge spinal needle was inserted under fluoroscopic guidance into the inferior aspect of the left sacroiliac joint.~ Omnipaque dye was injected and good spread was seen throughout the joint. After this, approximately 5 mL of bupivacaine, 0.25% and Depo-Medrol, 40 mg was incrementally injected into the left sacroiliac joint.~ The patient tolerated the procedure well with no complications. The patient was observed in the Pain Clinic and then was discharged home neurologically intact. Plan and Disposition:: Patient was discharged without incident.
== END 2024-09-20 10:34 | disposition home or self-care (01) ==
LOC: SC.PAINP 10:08
PROVIDERS: PCP Family Medicine; Visit Provider Nurse Anesthetist, Certified Registered
DX: M46.1 Sacroiliitis, not elsewhere classified (principal)
CPT/HCPCS: 27096; G0260; J1010

== ENCOUNTER 2024-09-22 10:12 | Outpatient (CLI) | payer BC, SELFPAY ==
[2024-09-22 18:31] LABS: Basophils # 0.2 K/mm3 (0-0.2); Basophils % 1.2 % (0.1-2.0); Eosinophils # 0.3 K/mm3 (0.0-0.4); Eosinophils % 1.7 % (0.1-12.0); Hematocrit 43.9 % (37.0-47.0); Hemoglobin 14.3 g/dL (12.2-16.2); Lymphocytes # 3.6 K/mm3 (0.7-4.5); Lymphocytes % 20.4 % (10-50); Mean Corpuscular HGB Conc 32.6 g/dL (31.8-35.4); Mean Platelet Volume 8.8 fl (7.4-10.4); Monocytes % 5.4 % (1.7-9.3); Neutrophils # 12.3 K/mm3 (1.8-7.8); Neutrophils % 69.2 % (37.0-80.0); Platelet Count 389 K/mm3 (142-424); Red Blood Count 4.77 M/mm3 (4.20-5.40); Red Cell Distribution Width 14.3 % (11.5-17.5); White Blood Count 17.8 K/mm3 (4.8-10.8)
[2024-09-22 18:34] LABS: MANUAL DIFFERENTIAL MANUAL DIFFERENTIAL (MANUAL DIFF)
[2024-09-22 20:11] LABS: Eosinophils % 2 % (0-3); Lymphocytes % 22 % (10-50); Monocytes % 7 % (2-9); Neutrophils % 64 % (42-76); Platelet Estimate Slight Increase; RBC Morphology Normal; Total Cells Counted 100
== END 2024-09-22 23:59 | disposition home or self-care (01) ==
LOC: LAB.DROPOF 09-23 11:28
PROVIDERS: PCP Family Medicine; Visit Provider Family Medicine
DX: G89.29 Other chronic pain (principal); M54.42 Lumbago with sciatica, left side; F41.9 Anxiety disorder, unspecified
CPT/HCPCS: 84443; 85007; 85025; 85027

== ENCOUNTER 2024-10-03 13:02 | Outpatient (POV) | payer BC, SELFPAY ==
--- NOTE | 2024-10-03 13:22 | A.OFFVIS_ITS ---
[facility] Disclaimer: The information contained in this section may have been updated after the patient was seen, as this information can be updated by other users. Medical History Allergic rhinitis Tobacco abuse disorder Tobacco abuse counseling Screening for lung cancer Smoking greater than 30 pack years COPD (chronic obstructive pulmonary disease) Exertional shortness of breath Surgical History History of total hysterectomy History of hernia repair Hx of cholecystectomy History of appendectomy Family History Other Asthma Coronary artery disease Diabetes Hyperlipidemia Hypertension Social History (Updated 09/22/24 @ 09:16 by Beena Fraser MA) Smoking Status: Current every day smoker tobacco type: cigarettes packs per da y: 1 alcohol intake: never substance use type: denies use current occupational status: other Travel in the last 8 weeks: None household members: spouse and children housing: house PM Subjective & Objective Subjective Subjective:: Patient is a pleasant 59-year-old female who presents today for follow-up of bilateral SI injections on 09/20/2024. Today she rates her pain a 3 out of 10. She denies any new falls or injuries. She does state that she had at least 80 to 85% improvement following these injections. Patient does make mention however she is experiencing significant leg cramps that even going to her toes. She has a lot of tightness with worsening symptoms. She states this been going on for at least 6 to 8 months on and off. She does state that she feels like it is every couple of days she has the sensations but it varies whether or not at night or during the day. She does state it is severe when it goes on. Patient does get cervical epidurals as well with her last August 09 that did provide 90% improvement. Her Driss has been reviewed and is appropriate. Review of Systems: General: No recent weight changes, no fever, no sleep disturbances Respiratory: No cough, no shortness of air, no recurring pulmonary infections Cardiovascular/peripheral vascular: No chest pain, no palpitations, no edema, no shortness of breath Gastrointestinal: No new onset incontinence, normal bowel movements reported Genitourinary: No new onset incontinence Musculoskeletal: Low back pain, leg cramps Psychiatric: [Normal mood/affect] Neurological: [Denies weakness in extremities], [denies balance issues] Pain at rest (0-10 scale): 3 Objective Objective:: Physical Exam: General: Alert and oriented x3, no acute distress, pleasant and cooperative Lungs: Respirations even and unlabored, symmetrical chest expansion Eyes: PERRL Musculoskeletal: Flexion and extension of lumbar [spine] somewhat guarded secondary to pain, [antalgic gait noted] Neurological: Speech clear, no gross sensory deficit Has patient had previous pain injection?: Yes Percent improvement in pain since last injection: 80 to 85% Conservative treatment options previously tried: Home exercise plan Length of treatment: Longer than 12 weeks Meds Home Medications and Allergies Home Medications ?Medication ?Instructions ?Recorded ?Confirmed ?Type diphenhydramine HCl 25 mg capsule See Rx Instructions .Route 10/28/23 09/22/24 Rx (Benadryl) .COMPLEX #2 caps albuterol sulfate 90 mcg/actuation 2 inh inhalation Q6H PRN shortness 04/14/24 09/22/24 Rx aerosol inhaler of breath or wheezing 90 days #8.5 grams fluticasone propionate 50 1 spray intranasal BID 90 days #16 05/05/24 09/22/24 Rx mcg/actuation nasal grams spray,suspension (Flonase Allergy Relief) lisinopril 20 mg tablet 20 mg PO DAILY #90 tabs 05/05/24 09/22/24 Rx umeclidinium 62.5 mcg-vilanterol See Rx Instructions .Route 05/05/24 09/22/24 Rx 25 mcg/actuation powdr for .COMPLEX #60 ea inhalation (Anoro Ellipta) albuterol sulfate 2.5 mg/3 mL 2.5 mg (3 mL) inhalation Q6H #720 06/07/24 09/22/24 Rx (0.083 %) solution for nebulization mL ipratropium 0.5 mg-albuterol 3 mg 3 ml inhalation Q6H PRN shortness 06/24/24 09/22/24 Rx (2.5 mg base)/3 mL nebulization of breath #180 mL soln prochlorperazine maleate 10 mg 10 mg PO Q6H PRN nausea and 07/08/24 09/22/24 Rx tablet (Compazine) vomiting #60 tabs hydroxyzine HCl 10 mg tablet 10 mg PO HS PRN itching #30 tabs 07/25/24 09/22/24 Rx benzonatate 200 mg capsule 200 mg PO TID PRN cough #90 caps 09/22/24 09/22/24 Rx desvenlafaxine succinate 50 mg 50 mg PO DAILY #90 tabs 09/22/24 09/22/24 Rx tablet,extended release 24 hr (Pristiq) lorazepam 2 mg tablet 2 mg PO DAILY PRN anxiety #20 tabs 09/22/24 09/22/24 Rx levothyroxine 112 mcg tablet 224 mcg (2 x 112 mcg) PO DAILY 09/23/24 Rx (Synthroid) #180 tabs New Prescriptions to Start Prescriptions: Allergies Allergy/AdvReac Type Severity Reaction Status Date / Time estrogens, conjugated (From Allergy Severe Hives Verified 09/22/24 09:14 Premarin) Iodinated Contrast Media Allergy Unknown Unknown Verified 09/22/24 09:14 allergy reaction flu vaccine Allergy rash Uncoded 09/22/24 09:14 Assessment and Plan *Assessment and plan (1) Sacroiliitis: Status: Acute Category: Medical Code(s): M46.1 - Sacroiliitis, not elsewhere classified (2) Leg cramps: Status: Acute Category: Medical Code(s): R25.2 - Cramp and spasm Plan I did discuss with patient that I do believe it may be related to possible restless leg syndrome. I will send in a 2-week dose of ropinirole 0.25 mg twice daily as needed. Patient will return to clinic in 2 weeks for reevaluation of symptoms and plan of care. We did also discuss the possibility of things such as her sodium, potassium or magnesium out of range. Patient did just recently have updated labs from her primary care and denies being told any specifics regarding abnormal levels. Patient does state that she does frequently border of the low range of her sodium. Patient did follow-up send her labs today however these were from May 05 but her sodium and potassium were within range. Patient has been instructed to contact the clinic with any concerns before the next appointment. Dr. Ramirez has reviewed this note and agrees with this plan of care. This note was dictated using voice recognition software and make contain errors or omissions. All injections are used with Lidocaine, Bupivacaine and Depo Medrol. Occasionally urine drug screen is needed to verify patient's compliance with our office pain contract. This is ordered based off specific treatments related to chronic pain with the potential to abuse certain medications.
[2024-10-03 13:23] VITALS: BP 118/69; PULSE 84; RESP 14; O2SAT 95; BMI 34.7
== END 2024-10-03 23:59 | disposition home or self-care (01) ==
PROVIDERS: PCP Family Medicine; Visit Provider Nurse Practitioner Family
DX: M46.1 Sacroiliitis, not elsewhere classified (principal); R25.2 Cramp and spasm; F17.210 Nicotine dependence, cigarettes, uncomplicated
CPT/HCPCS: 99212; G0463

== ENCOUNTER 2024-10-17 10:03 | Outpatient (POV) | payer BC, SELFPAY ==
--- NOTE | 2024-10-17 10:07 | A.OFFVIS_ITS ---
[facility] Disclaimer: The information contained in this section may have been updated after the patient was seen, as this information can be updated by other users. Medical History Allergic rhinitis Tobacco abuse disorder Tobacco abuse counseling Screening for lung cancer Smoking greater than 30 pack years COPD (chronic obstructive pulmonary disease) Exertional shortness of breath Surgical History History of total hysterectomy History of hernia repair Hx of cholecystectomy History of appendectomy Family History Other Asthma Coronary artery disease Diabetes Hyperlipidemia Hypertension Social History Smoking Status: Current every day smoker tobacco type: cigarettes packs per d ay: 1 alcohol intake: never substance use type: denies use current occupational status: other Travel in the last 8 weeks: None household members: spouse and children housing: house PM Subjective & Objective Subjective Subjective:: Patient is a pleasant 59-year-old female who presents today for follow-up. Today she rates her pain a 5 out of 10. She denies any new trauma or injury. She does state that her hips are just killing her. She states this is a constant achy sensation that is worse with increased activity or ambulation. She does state the pain is interfering with her ability to perform activities of daily living such as cooking and cleaning. At her last visit we did send in ropinirole 0.25 mg twice a day. Today she states that this did seem like it helped. She denied any side effects. She is asking if there is additional adjustments that we can make to this medication. She definitely states that she notices worsening pain when she forgets to take the ropinirole. Patient had her last cervical epidural on August 09 that did provide 90%. Patient is prescribed lorazepam from an outside provider. Her Driss has been reviewed and is appropriate. Review of Systems: General: No recent weight changes, no fever, no sleep disturbances Respiratory: No cough, no shortness of air, no recurring pulmonary infections Cardiovascular/peripheral vascular: No chest pain, no palpitations, no edema, no shortness of breath Gastrointestinal: No new onset incontinence, normal bowel movements reported Genitourinary: No new onset incontinence Musculoskeletal: Bilateral hip pain Psychiatric: [Normal mood/affect] Neurological: [Denies weakness in extremities], [denies balance issues] Pain at rest (0-10 scale): 5 Objective Objective:: Physical Exam: General: Alert and oriented x3, no acute distress, pleasant and cooperative Lungs: Respirations even and unlabored, symmetrical chest expansion Eyes: PERRL Musculoskeletal: Flexion and extension of bilateral hips somewhat guarded secondary to pain, point tenderness along her bilateral greater trochanteric bursa's Neurological: Speech clear, no gross sensory deficit Has patient had previous pain injection?: No Conservative treatment options previously tried: Home exercise plan Length of treatment: Longer than 12 weeks Meds Home Medications and Allergies Home Medications ?Medication ?Instructions ?Recorded ?Confirmed ?Type diphenhydramine HCl 25 mg capsule See Rx Instructions .Route 10/28/23 10/17/24 Rx (Benadryl) .COMPLEX #2 caps albuterol sulfate 90 mcg/actuation 2 inh inhalation Q6H PRN shortness 04/14/24 10/17/24 Rx aerosol inhaler of breath or wheezing 90 days #8.5 grams fluticasone propionate 50 1 spray intranasal BID 90 days #16 05/05/24 10/17/24 Rx mcg/actuation nasal grams spray,suspension (Flonase Allergy Relief) lisinopril 20 mg tablet 20 mg PO DAILY #90 tabs 05/05/24 10/17/24 Rx umeclidinium 62.5 mcg-vilanterol See Rx Instructions .Route 05/05/24 10/17/24 Rx 25 mcg/actuation powdr for .COMPLEX #60 ea inhalation (Anoro Ellipta) albuterol sulfate 2.5 mg/3 mL 2.5 mg (3 mL) inhalation Q6H #720 06/07/24 10/17/24 Rx (0.083 %) solution for nebulization mL ipratropium 0.5 mg-albuterol 3 mg 3 ml inhalation Q6H PRN shortness 06/24/24 10/17/24 Rx (2.5 mg base)/3 mL nebulization of breath #180 mL soln prochlorperazine maleate 10 mg 10 mg PO Q6H PRN nausea and 07/08/24 10/17/24 Rx tablet (Compazine) vomiting #60 tabs hydroxyzine HCl 10 mg tablet 10 mg PO HS PRN itching #30 tabs 07/25/24 10/17/24 Rx benzonatate 200 mg capsule 200 mg PO TID PRN cough #90 caps 09/22/24 10/17/24 Rx desvenlafaxine succinate 50 mg 50 mg PO DAILY #90 tabs 09/22/24 10/17/24 Rx tablet,extended release 24 hr (Pristiq) lorazepam 2 mg tablet 2 mg PO DAILY PRN anxiety #20 tabs 09/22/24 10/17/24 Rx levothyroxine 112 mcg tablet 224 mcg (2 x 112 mcg) PO DAILY 09/23/24 10/17/24 Rx (Synthroid) #180 tabs ropinirole 0.25 mg tablet 0.25 mg PO BID #28 tabs 10/03/24 10/17/24 Rx New Prescriptions to Start Prescriptions: Allergies Allergy/AdvReac Type Severity Reaction Status Date / Time estrogens, conjugated (From Allergy Severe Hives Verified 09/22/24 09:14 Premarin) Iodinated Contrast Media Allergy Unknown Unknown Verified 09/22/24 09:14 allergy reaction flu vaccine Allergy rash Uncoded 09/22/24 09:14 Assessment and Plan *Assessment and plan (1) Leg cramps: Status: Acute Category: Medical Code(s): R25.2 - Cramp and spasm (2) Greater trochanteric bursitis of both hips: Status: Acute Category: Medical Code(s): M70.61 - Trochanteric bursitis, right hip; M70.62 - Trochanteric bursitis, left hip Plan Patient is experiencing significant pain along her bilateral hips with point tenderness along her greater trochanteric bursa's. I did discuss with patient that I do believe she would benefit from bilateral trochanteric bursa injections. Risk and benefits were discussed with the patient and she would like to proceed forward with this plan of care. Patient has had longstanding chronic hip pain for longer than 6 months. Patient has also tried conservative therapy including continued oral medications, heat and ice, topicals, at home stretching exercise for longer than 12 weeks that was physician guided. I will increase her ropinirole to 0.5 mg at bedtime and provide a 30-day supply. Patient will be scheduled for bilateral greater trochanteric bursa injections under fluoroscopy. Patient has been instructed to contact the clinic with any concerns before the next appointment. Dr. Ramirez has reviewed this note and agrees with this plan of care. This note was dictated using voice recognition software and make contain errors or omissions. All injections are used with Lidocaine, Bupivacaine and Depo Medrol. Occasionally urine drug screen is needed to verify patient's compliance with our office pain contract. This is ordered based off specific treatments related to chronic pain with the potential to abuse certain medications.
[2024-10-17 10:24] VITALS: BP 128/83; PULSE 87; RESP 16; O2SAT 95; BMI 34.5
== END 2024-10-17 23:59 | disposition home or self-care (01) ==
PROVIDERS: PCP Family Medicine; Visit Provider Nurse Practitioner Family
DX: R25.2 Cramp and spasm (principal); M70.61 Trochanteric bursitis, right hip; M70.62 Trochanteric bursitis, left hip; F17.210 Nicotine dependence, cigarettes, uncomplicated; Z73.89 Other problems related to life management difficulty
CPT/HCPCS: 99212; G0463

== ENCOUNTER 2024-11-15 11:56 | Day surgery (SDC) | payer BC, SELFPAY ==
[2024-11-15 12:10] VITALS: BP 156/87; PULSE 76; RESP 16; TEMP 36.8; O2SAT 100; BMI 34.5
[2024-11-15] MEDS: BUPIVACAINE 0.25% 10ML INJ 25 MG IJ (12:17)
[2024-11-15] MEDS: DEXAMETHASONE 10MG/ML 1ML VIAL 10 MG (12:17)
[2024-11-15] MEDS: LIDOCAINE 1% 5ML PF VIAL 5 ML (12:17)
[2024-11-15 12:18] VITALS: BP 135/72; PULSE 80; RESP 18; O2SAT 96
[2024-11-15 12:20] VITALS: BP 135/72; PULSE 80; RESP 18; O2SAT 96
[2024-11-15 12:23] VITALS: BP 129/70; PULSE 61; RESP 16; O2SAT 96
--- NOTE | 2024-11-15 12:26 | P.PCN_ITS ---
Procedure Date: 11/15/24 Time: 11:45 Anesthesiologist:: Blas Osuna CRNA Complications:: None Pre-procedure Diagnosis:: Bilateral trochanteric bursitis Post-procedure Diagnosis:: Same Indications for Procedure:: Patient is a very pleasant 59-year-old female who comes our clinic today for bilateral trochanteric bursa injections. Patient describes bilateral lateral hip pain that is constant, dull, aching, sharp, stabbing. She reports having difficulty lying on either side laterally. She rates her pain 7/10. Procedure Details:: Procedure: Bilateral trochanteric bursa joint injections under fluoroscopy Informed consent was obtained and the risks and benefits of the procedure were explained to the patient.~ The patient was taken to the procedure room and noninvasive monitors were placed including a noninvasive blood pressure cuff and pulse oximeter.~ The patient was placed prone on the procedure table. Both hips were cleansed using Betadine as a cleansing solution. C-arm fluoroscopy was used to view the right trochanteric bursa joint.~ The skin and subcutaneous tissues were anesthetized using lidocaine 1.5% and a 25-gauge needle.~ After this, a 22- gauge spinal needle was inserted under fluoroscopic guidance into the inferior aspect of the right trochanteric bursa.~ Omnipaque dye was injected and good spread was seen throughout the joint.~ After this, approximately 5 mL of bupivacaine, 0.25% and Depo-Medrol, 40 mg was incrementally injected into the right sacroiliac joint. We then moved to the left trochanteric bursa joint.~ The skin and subcutaneous tissues were anesthetized using lidocaine 1.5% and a 25-gauge needle.~ After this, a 22-gauge spinal needle was inserted under fluoroscopic guidance into the inferior aspect of the left trochanteric bursa joint.~ Omnipaque dye was injected and good spread was seen throughout the joint. After this, approximately 5 mL of bupivacaine, 0.25% and Depo-Medrol, 40 mg was incrementally injected into the left sacroiliac joint.~ The patient tolerated the procedure well with no complications. The patient was observed in the Pain Clinic and then was discharged home neurologically intact. Plan and Disposition:: Patient was discharged without incident.
== END 2024-11-15 12:23 | disposition home or self-care (01) ==
PROVIDERS: PCP Family Medicine; Visit Provider Nurse Anesthetist, Certified Registered
DX: M70.61 Trochanteric bursitis, right hip (principal); M70.62 Trochanteric bursitis, left hip
CPT/HCPCS: 20610; 77002; J1100

== ENCOUNTER 2024-12-12 11:12 | Outpatient (POV) | payer BC, SELFPAY ==
--- OUTSIDE RECORDS SUMMARY | 2024-12-12 11:19 | XMS_ITS | Clinical Summary ---
Author Organization [facility] Address [address] [place] [address] Care Team Providers Care Is Project Manager Name Role Phone Joon Lakhani MD Primary Care Provider [phone] Allergies Active Allergy Reactions Criticality Noted Date Comments Aspirin Nausea 03/26/2016 heartburn and upset stomach Varenicline Unknown High 04/03/2016 inflamed liver Contrast Test Flushing High 03/26/2016 Conjugated Estrogens Itch High 03/26/2016 fluid retention, states blow up like a balloon Liraglutide GI Upset High 03/26/2016 pancreas got inflamed Medications Cholecalciferol (VITAMIN D3) 2000 UNITS CAPS Take by mouth. Active Cinnamon 500 MG CAPS Take by mouth. Active lisinopril (PRINIVIL,ZESTRI L) 20 MG TABS Take 20 mg by mouth daily. Active trazodone (DESYREL) 50 MG TABS Take 50 mg by mouth at bedtime. Active fluoxetine (PROZAC) 20 MG CAPS Take 20 mg by mouth daily. Active modafinil 200 MG TABS Take by mouth. Active ascorbic acid (VITAMIN C) 500 MG TABS Take 500 mg by mouth 2 (two) times daily. Active albuterol 108 (90 BASE) MCG/ACT AERS Use 2 puffs every 6 (six) hours as needed. Active levothyroxine (SYNTHROID, LEVOTHROID) 125 MCG TABS Take 125 mcg by mouth daily. Active gemfibrozil (LOPID) 300 MG TABS Take 600 mg by mouth nightly. Active Active Problems Problem Noted Date Diagnosed Date Carpal tunnel syndrome of right wrist - RT OCTR (04-08-16) 03/27/2016 Trigger middle finger of rig ht hand - RT LF TRIGGER REL (04-08-16), STAGE II - FULL AROM 03/27/2016 Trigger ring finger of right hand - RT RF TRIGGER REL (04-08-16), STAGE 0 - FULL AROM 03/27/2016 Social History Tobacco Use Types Packs/Day Years Used Date Smoking Tobacco: Every Day Cigarettes Smokeless Tobacco: Never Tobacco Cessation:Ready to Q uit: Yes; Counseling Given: Yes Alcohol Use Standard Drinks/Week Comments No 0 (1 standard drink = 0.6 oz pur e alcohol) Comments No Sex and Gender Information Value Date Recorded Sex Assigned at Not on file Legal Sex Female 11:10 PM EDT Gender Identity Not on file Sexual Orientation Not on file Last Filed Vital Signs Vital Sign Reading Time Taken Comments Blood Pressure 119/71 04/08/2016 11:49 AM EDT Pulse 79 04/08/2016 11:49 AM EDT Temperature 36.9 C (98.4 F) 04/08/2016 9:44 AM EDT Respiratory Rate 16 04/08/2016 11:49 AM EDT Oxygen Saturation 97% 04/08/2016 11:49 AM EDT Inhaled Oxygen Concentration - - Weight 94.3 kg (208 lb) 05/21/2016 12:53 PM EST Height 160 cm (5' 3 ) 05/21/2016 12:53 PM EST Body Mass Index 36.85 05/21/2016 12:53 PM EST Plan of Treatment Health Maintenance Due Date Last Done Comments Hepatitis C Screening 1965 DTap,Tdap,and Td (1 - Tdap) 10/01/1974 Pap Screening 10/01/1984 Mammogram Screening 2003 Colonoscopy 10/01/2008 Pneumococcal 50+ (1 of 1 - PCV) 10/01/2013 Shingrix (#1) 10/01/2013 Influenza Vaccine (Season Ended) 2025 RSV Vaccine (60+ or ) (1 - 1-dose 75+ series) 10/01/2038 HPV Aged Out No longer eligi ble based on patient's age to complete this topic Meningococcal conjugate tanvir nt 4 (MCV4) Aged Out No longer eligible b ased on patient's age to complete this topic RSV Immunization (<20 months) Aged Out No longer eligible based on patient's age to complete this topic Insurance [employer]THERS NOT MEDICARE Care Teams Is Project Manager Relationship Specialty Start Date End Date Joon Lakhani MD PCP - General Family Medicine 03/21/16
--- OUTSIDE RECORDS SUMMARY | 2024-12-12 11:19 | XMS_ITS | Referral Summary ---
Author Organization [facility] Address [address] [place] [address] Care Team Providers Care Strategy Intern Name Role Phone Joon Lakhani MD Primary Care Provider [phone] Allergies Active Allergy Reactions Criticality Noted Date [...] Mass Index 36.85 05/21/2016 12:53 PM EST Functional Status * Are you deaf or do you have serious difficulty hearing? Answer Date of Assessment Author No 04/03/2016 2:53 PM EDT Basia Dobson Registered Nurse * Are you blind or do you have serious difficulty seeing, even when wearing glasses? Answer Date of Assessment Author No 04/03/2016 2:53 PM EDT Basia Dobson Registered Nurse * Do you have serious difficulty walking or climbing stairs? (5 years old or older) Answer Date of Assessment Author No 04/03/2016 2:53 PM EDT Basia Dobson Registered Nurse * Do you have difficulty dressing or bathing? (5 years old or older) Answer Date of Assessment Author No 04/03/2016 2:53 PM EDT Basia Dobson Registered Nurse * Because of a physical, mental, or emotional condition, do you have difficulty doing errands alone such as visiting a doctor???s office or shopping? (15 years old or older) Answer Date of Assessment Author No 04/03/2016 2:53 PM Basia Sunshine, Registered Nurse Mental Status * Because of a physical, mental, or emotional condition, do you have serious difficulty concentrating, remembering, or making decisions? (5 years old or older) Answer Entry Date Author No 04/03/2016 2:53 PM Basia Sunshine Registered Nurse Plan of Treatment Not on file Insurance [facility] ALL OTHERS NOT MEDICARE Care Teams Strategy Intern Relationship Specialty Start Date End Date Joon Lakhani MD PCP - General Family Medicine 03/21/16
--- OUTSIDE RECORDS SUMMARY | 2024-12-12 11:19 | XMS_ITS | Clinical Summary ---
Author Organization [facility] Address [address] [place] [address] Care Team Providers Care Research Quality Assurance Analyst Name Role Phone Unavailable Primary Care Provider Unavailabl e Social History Tobacco Use Types Packs/Day Years Used Date Smoking Tobacco: Never Assessed Comments Unknown Sex and Gender Information Value Date Recorded Sex Assigned at Not on file Legal Sex Female 2:11 AM EST Gender Identity Not on file Sexual Orientation Not on file Plan of Treatment Not on file
--- OUTSIDE RECORDS SUMMARY | 2024-12-12 11:19 | XMS_ITS | Clinical Summary ---
Author Organization [facility] Address [address] [place] [address] Phone Care Team Providers Care Smoke Jumper Name Role Phone Joon Lakhani MD Primary Care Provider [phone] Allergies Active Allergy Reactions Criticality Noted Date Comments Aspirin Nausea Only,Nausea And Vomiting Medium 03/26/2016 heartburn and upset stomach Flu Virus Vaccine Tv 2015-16 (18 Yr And Up),Recomb Swelling High 08/18/2018 Iodinated Contrast Media 04/07/2013 Generalized swelling, itching, hives Liraglutide Nausea Only High 03/26/2016 pancreas got inflamed Prednisone 04/06/2013 Swelling, weight gain Conjugated Estrogens 04/06/2013 hives Varenicline Other (See Comments) High 04/03/2016 inflamed liver Medications albuterol (PROVENTIL HFA;VENTOLIN HFA) 90 mcg/actuation inhaler Inhale 2 Puffs into the lungs every 6 hours as needed. Active Cholecalciferol , Vitamin D3, 2,000 unit Cap Take 2,000 Units by mouth. Active levothyroxine (SYNTHROID) 175 mcg tablet Take by mouth daily. Active lisinopril (PRINIVIL;ZESTR IL) 10 mg tablet Take by mouth daily. Active liraglutide, VICTOZA, 6 mg/ml Syrg Inject 1.8 mg as directed every 24 hours. Active metFORMIN (GLUCOPHAGE) 1,000 mg Oral Tablet Take 1 tablet by mouth 2 times daily. 4 Active Additional Information Patient not taking.Reason: Other (Glucose is running good), Reported on 10/29/2020 FLUoxetine (PROZAC) 20 mg Oral Capsule PROZAC 20 MG CAPS 8 Active gemfibroziL (LOPID) 600 mg Oral Tablet LOPID 600 MG TABS 8 Active Active Problems Problem Noted Date Diagnosed Date Acute diverticulitis 03/16/2014 Leucocytosis 03/16/2014 Smoker 03/16/2014 Anastomotic stricture of colorectal region 10/27 DM (diabetes mellitus) 04/07/2013 HTN (hypertension) 04/07/2013 MDS (myelodysplastic syndrome) 04/07/2013 Elevated LFTs 04/07/2013 Surgical History Surgery Date Site/Laterality Comments HYSTERECTOMY HERNIA REPAIR APPENDECTOMY BLADDER SURGERY vaginal mesh DENTAL SURGERY root canal wisdom tooth extractions FOOT SURGERY ankle reconstruction left CHOLECYSTECTOMY STOMACH SURGERY exp. lap TONSILLECTOMY TUBAL LIGATION RECTOCELE REPAIR COLECTOMY 08/12/2013 Abdomen/N/A EXPLORATORY LAPAROTOMY SIGMOID COLON RESECTION/LYSIS OF ADHESIONS/MOBILIZATION OF SPLENIC FLEXURE; Surgeon: Sarah Beth Gupta MD; Location: [facility]IN OR; Service: General Medical History Medical History Date Comments Diverticulosis pandiverticulosi s Hypertension History of seasonal allergies Diverticulitis Thyroid disease hypothyroid Myelodysplastic syndrome (HCC) h igh white cell count, chronic Unspecified sleep apnea sleep ap pamela, uses CPAP Diabetes mellitus (HCC) NIDDM Narcolepsy Eustachian tube dysfunction Migraine Leukocytosis Asthma Family History Medical History Relation Name Comments High Blood Pressure Brother Substance Abuse Brother High Blood Pressure Father High Blood Pressure Maternal Aunt Early Maternal Grandfather Diabetes Maternal Grandmother Diabetes Maternal Uncle Heart Disease Maternal Uncle High Blood Pressure Maternal Uncle Substance Abuse Maternal Uncle Diabetes Mother High Blood Pressure Mother High Cholesterol Mother Miscarriages / Stillbirths Mother Stroke Mother Cancer Paternal Aunt High Blood Pressure Paternal Aunt High Blood Pressure Paternal Uncle High Blood Pressure Sister Relation Name Status Comments Brother Father Maternal Aunt Maternal Grandfather Maternal Grandmother Maternal Uncle Mother Paternal Aunt Paternal Uncle Sister Social History Tobacco Use Types Packs/Day Years Used Date Smoking Tobacco: Every Day Cigarettes Last attempted to quit: 02/05/2013 Smokeless Tobacco: Never Alcohol Use Standard Drinks/Week Comments No 0 (1 standard drink = 0.6 oz pur e alcohol) Comments No Sex and Gender Information Value Date Recorded Sex Assigned at Not on file Legal Sex Female 4:49 PM EDT Gender Identity Not on file Sexual Orientation Not on file Obstetrics History Last Filed Vital Signs Vital Sign Reading Time Taken Comments Blood Pressure 118/78 11/09/2020 9:31 AM EDT Pulse 70 11/09/2020 9:31 AM EDT Temperature 36 C (96.8 F) 11/09/2020 9:31 AM EDT Respiratory Rate 16 11/09/2020 9:31 AM EDT Oxygen Saturation 95% 08/01/2019 3:12 PM EST Inhaled Oxygen Concentration - - Weight 91.6 kg (202 lb) 11/09/2020 9:31 AM EDT Height 160 cm (5' 3 ) 11/09/2020 9:31 AM EDT Body Mass Index 35.78 11/09/2020 9:31 AM EDT Plan of Treatment Health Maintenance Due Date Last Done Comments Annual Wellness Exam 10/01/1966 Lipids 10/01/1973 Microalbuminuria 10/01/1973 Diabetic Eye Exam 10/01/1981 Hemoglobin A1c 10/01/1981 DTaP/TDaP/Td (1 - Tdap) 10/01/1982 Cervical Cancer Screening 10/01/1984 Pap Smear 10/01/1984 HPV/Pap Cotest 10/01/1993 Breast Cancer Screening 2003 Cologuard 10/01/2008 FIT 10/01/2008 Sigmoidoscopy 10/01/2008 Virtual Colonography 10/01/2008 Zoster (1 of 2) 10/01/2013 Pneumococcal Vaccine 50+ (2 of 2 - PPSV23) 03/02/2017 01/05/2017 Colon Cancer Screening 10/22/2023 Colonoscopy 10/22/2023 10/21/2013 COVID-19 Vaccine (3 - 2023-2 5 season) 2024 10/11/2020, 09/13/2020 Influenza Vaccine (Season Ended) 2025 Hepatitis C Screening Completed 04/07/2013 Hepatitis B Vaccine Aged Out No longe r eligible based on patient's age to complete this topic Meningococcal B Vaccine Aged Out No l onger eligible based on patient's age to complete this topic Procedures Procedure Name Priority Date/Time Associated Diagnosis Comments ACUTE HEPATITIS PANEL Routine 04/07/2013 8:53 AM EDT from Last 3 Months or Most Recently Relevant to Health Maintenance Results * ACUTE HEPATITIS PANEL (04/07/2013 8:53 AM EDT) Hep Bs Ag Negative Negative [facility] Hep B Core IgM Negative Negative [facility] Hep A IgM Negative Negative [facility] Hep C Ab Negative Negative [facility] Blood specimen (specimen) UPPER LIMB STRUCTURE / Unknown 04/07/2013 8:53 AM EDT 04/07/2013 3:45 PM EDT us Carson Salvador MD CHEMISTRY ORDERABLES Edited R esult - Final [facility] [address] [place] [address] from Last 3 Months or Most Recently Relevant to Health Maintenance Insurance O O Care Teams Smoke Jumper Relationship Specialty Start Date End Date Joon Lakhani MD PCP - General Family Medicine 04/06/13
--- OUTSIDE RECORDS SUMMARY | 2024-12-12 11:19 | XMS_ITS | Clinical Summary ---
Author Organization [facility] Address [address] [place] [address] Care Team Providers Care Evaporator Operator Name Role Phone Unavailable Primary Care Provider Unavailabl e Source Comments [facility] is fully rolled out with thefollowing exceptions:General Clinical Research [facility] Social History Tobacco Use Types Packs/Day Years Used Date Smoking Tobacco: Never Assessed Comments Unknown Sex and Gender Information Value Date Recorded Sex Assigned at Not on file Legal Sex Female 5:39 AM EST Gender Identity Not on file Sexual Orientation Not on file Plan of Treatment Health Maintenance Due Date Last Done Comments MMR IMMUNIZATION (1 of 1 - S tandard series) 10/01/1964 DTAP/Tdap/Td IMMUNIZATION (1 - Tdap) 10/01/1970 VARICELLA IMMUNIZATION (1 of 2 - 13+ 2-dose series) 10/01/1976 COVID-19 Vaccine ( - 2023-2 5 season) 2024 AMB SEASONAL FLU VACCINE (Se ason Ended) 2025 Respiratory Syncytial Virus (RSV) >60yo or (1 - 1-dose 75+ series) 10/01/2038 HEPATITIS B IMMUNIZATION Aged Out No longer eligible based on patient's age to complete this topic HIB IMMUNIZATION Aged Out No longer e ligible based on patient's age to complete this topic HPV IMMUNIZATION Aged Out No longer e ligible based on patient's age to complete this topic IPV IMMUNIZATION Aged Out No longer e ligible based on patient's age to complete this topic MCV4 IMMUNIZATION Aged Out No longer eligible based on patient's age to complete this topic MENINGOCOCCAL B VACCINE Aged Out No l onger eligible based on patient's age to complete this topic Respiratory Syncytial Virus (RSV) <20mo Aged Out No longer eligible b ased on patient's age to complete this topic Insurance * Guarantor: Anny Mistry Account Type Relation to Patient Date of Phone Billing Address [facility] Reference Lab Self 1965 [address] [place] [address] ADRIENNE GARCIA
[2024-12-12 11:42] VITALS: BP 115/72; PULSE 69; RESP 14; O2SAT 97; BMI 33.6
--- NOTE | 2024-12-12 12:00 | A.OFFVIS_ITS ---
[facility] Disclaimer: The information contained in this section may have been updated after the patient was seen, as this information can be updated by other users. Medical History Allergic rhinitis Tobacco abuse disorder Tobacco abuse counseling Screening for lung cancer Smoking greater than 30 pack years COPD (chronic obstructive pulmonary disease) Exertional shortness of breath Surgical History History of total hysterectomy History of hernia repair Hx of cholecystectomy History of appendectomy Family History Other Asthma Coronary artery disease Diabetes Hyperlipidemia Hypertension Social History Smoking Status: Current every day smoker tobacco type: cigarettes packs per d ay: 1 alcohol intake: never substance use type: denies use current occupational status: other Travel in the last 8 weeks?: None household members: spouse and children housing: house PM Subjective & Objective Subjective Subjective:: Patient is a pleasant 59-year-old female who presents today for follow-up of her bilateral bursa injections on 11/15/2024. Today she rates her pain a 4 out of 10. She denies any new trauma or injury. She does state overall that she had 80% relief but it did take a couple of days to officially kick in. Patient states she has been able to move around easier with overall decreased pain and feels much more functional. She denies any new falls or injuries. Patient is still using the ropinirole 0.5 mg at bedtime and feels like this is beneficial. She does not need refills at this time. Her Driss has been reviewed and is appropriate. Review of Systems: General: No recent weight changes, no fever, no sleep disturbances Respiratory: No cough, no shortness of air, no recurring pulmonary infections Cardiovascular/peripheral vascular: No chest pain, no palpitations, no edema, no shortness of breath Gastrointestinal: No new onset incontinence, normal bowel movements reported Genitourinary: No new onset incontinence Musculoskeletal: Low back pain Psychiatric: [Normal mood/affect] Neurological: [Denies weakness in extremities], [denies balance issues] Pain at rest (0-10 scale): 4 Objective Objective:: Physical Exam: General: Alert and oriented x3, no acute distress, pleasant and cooperative Lungs: Respirations even and unlabored, symmetrical chest expansion Eyes: PERRL Musculoskeletal: Flexion and extension of lumbar [spine] within normal limits Neurological: Speech clear, no gross sensory deficit Has patient had previous pain injection?: Yes Percent improvement in pain since last injection: 80% Conservative treatment options previously tried: Home exercise plan Length of treatment: Longer than 12 weeks Meds Home Medications and Allergies Home Medications ?Medication ?Instructions ?Recorded ?Confirmed ?Type diphenhydramine HCl 25 mg capsule See Rx Instructions .Route 10/28/23 12/12/24 Rx (Benadryl) .COMPLEX #2 caps albuterol sulfate 90 mcg/actuation 2 inh inhalation Q6 H PRN shortness 04/14/24 12/12/24 Rx aerosol inhaler of breath or wheezing 90 day s #8.5 grams fluticasone propionate 50 1 spray intranasal BID 90 da ys #16 05/05/24 12/12/24 Rx mcg/actuation nasal grams spray,suspension (Flonase Allergy Relief) lisinopril 20 mg tablet 20 mg PO DAILY #90 tabs 10/07/2912/12/24 Rx umeclidinium 62.5 mcg-vilanterol See Rx Instructions . Route 05/05/24 12/12/24 Rx 25 mcg/actuation powdr for .COMPLEX #60 ea inhalation (Anoro Ellipta) albuterol sulfate 2.5 mg/3 mL 2.5 mg (3 mL) inhalation Q6H #720 06/07/24 12/12/24 Rx (0.083 %) solution for nebulization mL ipratropium 0.5 mg-albuterol 3 mg 3 ml inhalation Q6H PRN shortness 06/24/24 12/12/24 Rx (2.5 mg base)/3 mL nebulization of breath #180 mL soln prochlorperazine maleate 10 mg 10 mg PO Q6H PRN nausea and 07/08/24 12/12/24 Rx tablet (Compazine) vomiting #60 tabs hydroxyzine HCl 10 mg tablet 10 mg PO HS PRN itching # 30 tabs 07/25/24 12/12/24 Rx benzonatate 200 mg capsule 200 mg PO TID PRN cough #90 caps 09/22/24 12/12/24 Rx desvenlafaxine succinate 50 mg 50 mg PO DAILY #90 tabs 09/22/24 12/12/24 Rx tablet,extended release 24 hr (Pristiq) lorazepam 2 mg tablet 2 mg PO DAILY PRN anxiety #2 0 tabs 09/22/24 12/12/24 Rx levothyroxine 112 mcg tablet 224 mcg (2 x 112 mcg) PO DAILY 09/23/24 12/12/24 Rx (Synthroid) #180 tabs ropinirole 0.25 mg tablet 0.25 mg PO BID #28 tabs 09/0512/12/24 Rx ropinirole 0.5 mg tablet 0.5 mg PO HS #30 tabs 12/12/24 Rx New Prescriptions to Start Prescriptions: Allergies Allergy/AdvReac Type Severity Reaction Status Date / Time estrogens, conjugated (From Allergy Severe Hives Verified 09/22/24 09:14 Premarin) Iodinated Contrast Media Allergy Unknown Unknown Verified 09/22/24 09:14 allergy reaction flu vaccine Allergy rash Uncoded 09/22/24 09:14 Assessment and Plan *Assessment and plan (1) Greater trochanteric bursitis of both hips: Status: Acute Category: Medical Code(s): M70.61 - Trochanteric bursitis, right hip; M70.62 - Trochanteric bursitis, left hip Plan Patient has had significant improvement and does not need any additional injection therapy at this time. Patient will return to clinic in 6 weeks for reevaluation of symptoms and plan of care. Patient has been instructed to contact the clinic with any concerns before the next appointment. Dr. Ramirez has reviewed this note and agrees with this plan of care. This note was dictated using voice recognition software and make contain errors or omissions. All injections are used with Lidocaine, Bupivacaine and dexamethasone. Occasionally urine drug screen is needed to verify patient's compliance with our office pain contract. This is ordered based off specific treatments related to chronic pain with the potential to abuse certain medications.
== END 2024-12-12 23:59 | disposition home or self-care (01) ==
LOC: SC.PAIN 11:13
PROVIDERS: PCP Family Medicine; Visit Provider Nurse Practitioner Family
DX: M70.61 Trochanteric bursitis, right hip (principal); M70.62 Trochanteric bursitis, left hip; Z79.899 Other long term (current) drug therapy
CPT/HCPCS: 99212; G0463

== ENCOUNTER 2025-01-09 12:00 | Outpatient (CLI) | payer BC, SELFPAY ==
[2025-01-09 19:42] LABS: Hematocrit 47.1 % (37.0-47.0); Hemoglobin 15.2 g/dL (12.2-16.2); Immature Granulocytes % 1.2 %; Mean Corpuscular HGB Conc 32.3 g/dL (31.8-35.4); Mean Corpuscular Hemoglobin 28.4 pg (27.0-31.2); Mean Corpuscular Volume 87.9 fl (81-99); Nucleated Red Blood Cells % 0 %; Platelet Count 365 K/mm3 (142-424); Red Blood Count 5.36 M/mm3 (4.20-5.40); Red Cell Distribution Width-SD 46.1 fL; White Blood Count 13.9 K/mm3 (4.8-10.8)
[2025-01-09 20:26] LABS: Alanine Aminotransferase 32 U/L (12-78); Albumin Level 4.2 g/dl (3.5-5.0); Albumin/Globulin Ratio 1.5 (1.1-1.8); Alkaline Phosphatase 97 U/L (38-126); Anion Gap 15.5 mEq/L (5-15); Aspartate Amino Transferase 44 U/L (14-36); Bilirubin,Total 0.9 mg/dl (0.2-1.3); Blood Urea Nitrogen 12 mg/dl (7-17); Calcium 8.7 mg/dl (8.4-10.2); Carbon Dioxide 24 mmol/L (22.0-30.0); Chloride 102 mmol/L (98-107); Creatinine,Serum 0.80 mg/dl (0.52-1.04); Estimated Glomerular Filt Rate 73 ml/min (>60); GFR (African American) 88 ML/MIN (>60); Globulin 2.8 g/dL (1.3-3.2); Glucose 97 mg/dl (74-100); Potassium 4.5 mmoL/L (3.5-5.1); Sodium 137 mmol/L (136-145); Total Protein,Serum 7.0 g/dl (6.3-8.2)
[2025-01-09 20:43] LABS: T4 (Thyroxine) 12.5 ug/dl (5.53-11.0)
[2025-01-09 20:58] LABS: Thyroid Stimulating Hormone 1.80 uIU/mL (0.465-4.68)
[2025-01-09 21:01] LABS: Hepatitis C Ab Qual. W/ RFX NEGATIVE (Negative)
--- OUTSIDE RECORDS SUMMARY | 2025-01-10 07:26 | XMS_ITS | Clinical Summary ---
Author Organization [facility] Address [address] [place] [address] Phone Care Team Providers Care Portrait Artist Name Role Phone Joon Lakhani MD Primary Care Provider [phone] Allergies Active Allergy Reactions Criticality Noted Date [...] Last Done Comments Annual Wellness Exam 10/01/1966 Kidney Health: uACR 10/01/1973 Lipids 10/01/1973 Diabetic Eye Exam 10/01/1981 Hemoglobin A1c 10/01/1981 DTaP/TDaP/Td (1 - Tdap) 10/01/1982 Cervical Cancer Screening 10/01/1984 Pap Smear 10/01/1984 HPV/Pap Cotest 10/01/1993 Breast Cancer Screening 2003 Cologuard 10/01/2008 FIT 10/01/2008 Sigmoidoscopy 10/01/2008 Virtual Colonography 10/01/2008 Zoster (1 of 2) 10/01/2013 Kidney Health: eGFR 03/15/2015 03/15/2014, 08/13/2013, 04/07/2013 Pneumococcal Vaccine 50+ (2 of 2 - PPSV23, PCV20, or PCV21) 03/02/2017 01/05/2017 Colon Cancer Screening 10/22/2023 Colonoscopy 10/22/2023 10/21/2013 COVID-19 Vaccine (3 - 2023-2 5 season) 2024 10/11/2020, 09/13/2020 Influenza Vaccine (#1) 2025 Hepatitis C Screening Completed 04/07/2013 Hepatitis B Vaccine Aged Out No longe r eligible based on patient's age to complete this topic Meningococcal B Vaccine Aged Out No l onger eligible based on patient's age to complete this topic Procedures Procedure Name Priority Date/Time Associated Diagnosis Comments BASIC METABOLIC PANEL STAT 03/15/2014 10:02 PM EDT ACUTE HEPATITIS PANEL Routine 04/07/2013 8:53 AM EDT from Last 3 Months or Most Recently Relevant to Health Maintenance Results * (ABNORMAL) BASIC METABOLIC PANEL (03/15/2014 10:02 PM EDT) Sodium 132(L) 136 - 145 mmol/L [facility] Potassium 4.0 3.5 - 5.0 mmol/L [facility] Chloride 95(L) 98 - 107 mmol/L [facility] Total CO2 23 22 - 29 mmol/L [facility] Anion Gap 14 7 - 16 mmol/L [facility] Calcium 10.1 8.6 - 10.2 mg/dL [facility] Glucose Lvl 85 74 - 100 mg/dL [facility] BUN 13 6 - 20 mg/dL [facility] Creatinine 0.63 0.51 - 1.00 mg/dL [facility] GFR Afr Am >60 [facility] Comment: GFR is estimated using creatinine, age, gender, and race. GFR has been validated for patients between 18 and 70 years of age. GFR has not been validated for women, patients with serious comorbid conditions, or persons with extremes of body size, muscle mass, or nutritional status. For additional information: www.kidney.org. Chronic kidney disease stage GFR (ml/min/1.73 square meters) Stage 3 30 - 59 Stage 4 15 - 29 Stage 5 14 or less GFR Non Afr Am >60 [facility] Blood specimen (specimen) UPPER LIMB STRUCTURE / Unknown 03/15/2014 10:02 PM EDT 03/15/2014 10:12 PM EDT Sebastien Wayne MD CHEMISTRY ORDERABLES Edited Result - Final [facility] [address] [place] [address] * ACUTE HEPATITIS PANEL (04/07/2013 8:53 AM EDT) Hep Bs Ag Negative Negative [facility] Hep B Core IgM Negative Negative [facility] Hep A IgM Negative Negative [facility] Hep C Ab Negative Negative [facility] Blood specimen (specimen) UPPER LIMB STRUCTURE / Unknown 04/07/2013 8:53 AM EDT 04/07/2013 3:45 PM EDT us Carson Salvador MD CHEMISTRY ORDERABLES Edited R esult - Final Performing Organization Address [facility]/ZIP Co de Phone Number [facility] [address] [place] [address] from Last 3 Months or Most Recently Relevant to Health Maintenance Insurance O O Care Teams Portrait Artist Relationship Specialty Start Date End Date Joon Lakhani MD PCP - General Family Medicine 04/06/13
--- OUTSIDE RECORDS SUMMARY | 2025-01-10 07:26 | XMS_ITS | Referral Summary ---
Author Organization [facility] Address [address] [place] [address] Care Team Providers Care Vegetable Canner Name Role Phone Joon Lakhani MD Primary Care Provider [phone] Allergies Active Allergy Reactions Criticality Noted Date [...] Plan of Treatment Not on file Insurance [facility] ALL OTHERS NOT MEDICARE Care Teams Vegetable Canner Relationship Specialty Start Date End Date Joon Lakhani MD PCP - General Family Medicine 03/21/16
--- OUTSIDE RECORDS SUMMARY | 2025-01-10 07:26 | XMS_ITS | Clinical Summary ---
Author Organization [facility] Address [address] [place] [address] Care Team Providers Care Clerical Adjudicator Name Role Phone Unavailable Primary Care Provider Unavailabl e Source Comments [facility] is fully rolled out with thefollowing exceptions:General Clinical Research [facility] Social History Tobacco Use Types Packs/Day Years [...] 5 season) 2024 AMB SEASONAL FLU VACCINE (#1) 03/06/2025 Respiratory Syncytial Virus (RSV) >60yo or (1 [...] to Patient Date of Phone Billing Address [facility] Reference Lab Self [address] [place] [address] ADRIENNE GARCIA
--- OUTSIDE RECORDS SUMMARY | 2025-01-10 07:26 | XMS_ITS | Clinical Summary ---
Author Organization [facility] Address [address] [place] [address] Care Team Providers Care Android Platform Developer Name Role Phone Unavailable Primary Care Provider [...]
--- OUTSIDE RECORDS SUMMARY | 2025-01-10 07:26 | XMS_ITS | Clinical Summary ---
Author Organization [facility] Address [address] [place] [address] Care Team Providers Care [employer] Executive Director Name Role Phone Joon Lakhani MD Primary Care Provider [phone] Allergies Active Allergy Reactions Criticality Noted Date [...] CROSS ALL OTHERS NOT MEDICARE Care Teams [employer] Executive Director Relationship Specialty Start Date End Date Joon Lakhani MD PCP - General Family Medicine 03/21/16
[2025-01-11 10:12] LABS: Hepatitis B Surface Antigen Negative (Negative)
== END 2025-01-09 23:59 | disposition home or self-care (01) ==
LOC: LAB.DROPOF 01-10 07:23
PROVIDERS: PCP Family Medicine; Visit Provider Family Medicine
DX: R20.0 Anesthesia of skin (principal); Z11.59 Encounter for screening for other viral diseases; J44.89 Other specified chronic obstructive pulmonary disease
CPT/HCPCS: 80053; 84436; 84443; 85025; 86803; 87340; 87389

== ENCOUNTER 2025-01-23 11:38 | Outpatient (POV) | payer BC, SELFPAY ==
--- OUTSIDE RECORDS SUMMARY | 2025-01-23 11:40 | XMS_ITS | Clinical Summary ---
Author Organization [facility] Address [address] [place] [address] Phone Care Team Providers Care Principal Secretary Name Role Phone Joon Lakhani MD Primary Care Provider [phone] Allergies Active Allergy Reactions Criticality Noted Date [...] EDT) Sodium 132(L) 136 - 145 mmol/L [facility] Potassium 4.0 3.5 - 5.0 mmol/L [facility] Chloride 95(L) 98 - 107 mmol/L [facility] Total CO2 23 22 - 29 mmol/L [facility] Anion Gap 14 7 - 16 mmol/L [facility] Calcium 10.1 8.6 - 10.2 mg/dL [facility] Glucose Lvl 85 74 - 100 mg/dL [facility] BUN 13 6 - 20 mg/dL [facility] Creatinine 0.63 0.51 - 1.00 mg/dL [facility] GFR Afr Am >60 SE [...] MD CHEMISTRY ORDERABLES Edited Result - Final [facility] [address] [place] [address] * ACUTE HEPATITIS PANEL (04/07/2013 8:53 AM [...] R esult - Final Performing Organization Address [facility]/ZIP Co de Phone Number [facility] [address] [place] [address] from Last 3 Months or Most Recently Relevant to Health Maintenance Insurance O O Care Teams Principal Secretary Relationship Specialty Start Date End Date Joon Lakhani MD PCP - General Family Medicine 04/06/13
--- OUTSIDE RECORDS SUMMARY | 2025-01-23 11:40 | XMS_ITS | Referral Summary ---
Author Organization [facility] Address [address] [place] [address] Care Team Providers Care Retail District Manager Name Role Phone Joon Lakhani MD Primary Care Provider [phone] Allergies Active Allergy Reactions Criticality Noted Date [...] Assessment Author No 04/03/2016 2:53 PM EDT Baisa Dobson Registered Nurse * Do you have [...] Plan of Treatment Not on file Insurance [facility] ALL OTHERS NOT MEDICARE Care Teams Retail District Manager Relationship Specialty Start Date End Date Joon Lakhani MD PCP - General Family Medicine 03/21/16
--- OUTSIDE RECORDS SUMMARY | 2025-01-23 11:40 | XMS_ITS | Clinical Summary ---
Author Organization [facility] Address [address] [place] [address] Phone Care Team Providers Care Transportation Associate Name Role Phone [place] VIRK Jennifer Rosalva [phone] Conditions or Problems Problem Name Problem Code Onset Date Status Entry Date Provider Comment Standard Description Annotate *AFTRCR FOLLOW SRG MUSCULOSKELETAL SYSTEM NEC Z48.89 (ICD-10-CM ) 11/01 Active 11/01 Jennifer Callahan MA Encounter for other specified surgical aftercare HERNIATED LUMBAR DISK WITH RADICULOPATHY 516580385 (SNOMED CT) 09/21 Active 09/28 Katherine Weir Lumbar disc prolapse with radiculopathy PRE-OP EXAM 368420445 (SNOMED CT) 08/23 Active 08/23 Fer Quevedo MD Special examination - general OVERWEIGHT 747555328 (SNOMED CT) 08/23 Active 08/23 Jennifer Callahan MA Overweight LOW BACK PAIN 263404738 (SNOMED CT) 08/18 Active 08/18 Bettie Ford MA Low back pain HERNIATED NUCLEUS PULPOSUS 19733183 (SNOMED CT) 08/17 Active 08/17 Riccardo Andrade Herniation of nucleus pulposus L2-3 LUMBAR RADICULOPATHY 298488356 (SNOMED CT) 08/17 Active 08/17 Riccardo Andrade Lumbar radiculopathy Medications Medication Instructions Start Date Stop Date Generic Name NDC Provider GABAPENTIN 300 MG CAPS 1 po qd x 3 days, 1 bid x 3 days then 1 tid there after 6 GABAPENTIN [id number] Jennifer Callahan MA GABAPENTIN 300 MG CAPS 1 po tid GABAPENTIN 47153750133 Fer Quevedo MD GABAPENTIN 300 MG CAPS 1 po qd x 3 days, 1 bid x 3 days then 1 tid there after 12/13 GABAPENTIN 00737809210 Fer Quevedo MD TRAMADOL HCL 50 MG TABS 1 PO BID TRAMADOL HCL 14378156938 Fer Quevedo MD NORCO 5-325 MG ORAL TABLET 1 po TID 11/01 HYDROCODONE-ACETA MINOPHEN 13721901360 Jennifer Callahan MA NORCO 5-325 MG ORAL TABLET 1 po TID 11/01 HYDROCODONE-ACETA MINOPHEN 97185978114 Fer Quevedo MD PERCOCET 5-325 MG TABS 1-2 po q4-6 hrs prn pain max 8/day 10/04 OXYCODONE-ACETAMI NOPHEN 64853631695 Erasmo Jackson PERCOCET 5-325 MG TABS 1-2 po q4-6 hrs prn pain max 8/day 10/25 OXYCODONE-ACETAMI NOPHEN 94292813934 Fer Quevedo MD HIBICLENS 4 % EXTERNAL LIQUID Wash the entire back and both hip/buttock areas the night prior to the surgery 09/21 CHLORHEXIDINE GLUCONATE 37022494431 Fer Quevedo MD HIBICLEFELECIA 4 % EXTERNAL LIQUID Wash the entire back and both hip/buttock areas the night prior to the surgery 09/21 CHLORHEXIDINE GLUCONATE 26152437527 Fer Quevedo MD CYCLOBENZAPRINE HCL 10 MG TABS 1 tab Q8H prn CYCLOBENZAPRINE HCL 31384924876 Ismael Luis MD CYCLOBENZAPRINE HCL 10 MG TABS [facility] 08/18 CYCLOBENZAPRINE HCL 43131564034 Riccardo Andrade PRINIVIL 20 MG ORAL TABLET [facility] LISINOPRIL [id number] Bettie Ford MA CYCLOBENZAPRINE HCL 10 MG TABS [facility] 08/18 CYCLOBENZAPRINE HCL 98856571827 Bettie Ford MA VENTOLIN HFA AERS [facility] ALBUTEROL SULFATE AERS [id number] Bettie Ford MA GNP VITAMIN C TABS [facility] ASCORBIC ACID TABS 24762035365 Bettie Ford MA VITAMIN D3 TABS [facility] CHOLECALCIFEROL TABS 37198374731 Bettie Ford MA LOPID 600 MG TABS [facility] GEMFIBROZIL [id number] Bettie Ford MA PROZAC 20 MG CAPS [facility] FLUOXETINE HCL [id number] Bettie Ford MA PROVIGIL TABLET [facility] MODAFINIL TABS 06859355583 Bettie Ford MA TRAZODONE HCL TABS [facility] TRAZODONE HCL TABS [id number] Bettie Ford MA SYNTHROID TABS [facility] LEVOTHYROXINE SODIUM TABS [id number] Bettie Ford MA Medications Administered No information available. Allergies, Adverse Reactions, Alerts Allergy Name Reaction Description Start Date Severity Statu s Provider FLU VACCINATION Critical All matt Ford MA PREMARIN rash Moderate Bettie H icks MA ASPIRIN upsets stomach Moderate David son Logan MA IVP DYE Critical Bettie H ickristin MA Results No information available. Plan of Care Type Date Detail Pending order CBC Pending order EKG Pending order Renal function p bushra with BUN Pending order X-Ray Lumbosacra l AP & Lateral Pending order X-Ray Lumbosacra l Flexion/Extension Pending order RUDDY -- x 2 injec tions then follow back with PM&R Patient education LUMBAR%20DISC% 20HERNIATION Patient education BACK%20PAIN Patient education lumbar%20radic ulopathy Patient education DECISION%20AID%20FOR%20HERNIATED%20DISC%20IN%20THE%20LOW ER%20BACK Patient education lumbar%20radic ulopathy Patient education DECISION%20AID%20FOR%20HERNIATED%20DISC%20IN%20THE%20LOW ER%20BACK Procedures Code Procedure Name Date Entry Date [facility]-[id number] Tobacco Cessation Counseling Performed 2 [facility]-[id number] Tobacco Cessation Counseling Performed 2 [id number] Tobacco Cessation Counseling Performed 2 [facility]-[id number] Flu Shot Declined 3 [facility]-[id number] Tobacco Cessation Counseling Performed 2 [facility]-[id number] Flu Shot Contraindicated 20 24/08/12 [facility]-[id number] Tobacco Cessation Counseling Performed 2 Vital Signs Date Name Value Unit Description BMI (Body Mass Index) 35.42 kg/m2 Bod y Mass Index (Ratio) Height 63 [in_us] height E&M Weight Measured 200 [lb_av] weight E& M Weight Measured 200 [lb_av] weight E& M BP Diastolic 83 mm[Hg] blood pressu re, diastolic BP Systolic 140 mm[Hg] blood pressur e, systolic Body Temperature 97.6 [degF] temperat ure E&M Heart Rate 86 /min pulse rate Respiratory Rate 16 /min respirat ory rate E&M Immunizations No information available. Advance Directives No information available.
--- OUTSIDE RECORDS SUMMARY | 2025-01-23 11:40 | XMS_ITS | Clinical Summary ---
Author Organization [facility] Address [address] [place] [address], [address] [place] [address] Care Team Providers Care Recruiting Assistant Name Role Phone Unavailable Primary Care Provider [...]
--- OUTSIDE RECORDS SUMMARY | 2025-01-23 11:41 | XMS_ITS | Clinical Summary ---
Author Organization [facility] Address [address] [place] [address] Care Team Providers Care It Security Manager Name Role Phone Joon Lakhani MD Primary Care Provider [phone] Allergies Active Allergy Reactions Criticality Noted Date [...] PCV) 10/01/2013 Shingrix (#1) 10/01/2013 Influenza Vaccine (#1) 2025 RSV Vaccine (60+ or ) (1 [...] CROSS ALL OTHERS NOT MEDICARE Care Teams It Security Manager Relationship Specialty Start Date End Date Joon Lakhani MD PCP - General Family Medicine 03/21/16
--- OUTSIDE RECORDS SUMMARY | 2025-01-23 11:41 | XMS_ITS | Clinical Summary ---
Author Organization [facility] Address [address] [place] [address] Care Team Providers Care Technical Service Specialist Name Role Phone Unavailable Primary Care Provider Unavailabl e Source Comments [facility] is fully rolled out with thefollowing exceptions:General Clinical Research [facility] Social History Tobacco Use Types Packs/Day [...] to Patient Date of Phone Billing Address [facility] Reference [facility] Self [address] [place] [address] ADRIENNE GARCIA
--- NOTE | 2025-01-23 12:06 | EXP.PAIN.SOA ---
[facility] Disclaimer: The information contained in this section may have been updated after the patient was seen, as this information can be updated by other users. Medical History Allergic rhinitis Tobacco abuse disorder Tobacco abuse counseling Screening for lung cancer Smoking greater than 30 pack years COPD (chronic obstructive pulmonary disease) Exertional shortness of breath Surgical History History of total hysterectomy History of hernia repair Hx of cholecystectomy History of appendectomy Family History Other Asthma Coronary artery disease Diabetes Hyperlipidemia Hypertension Social History (Updated 01/09/25 @ 10:28 by Beena Fraser MA) Smoking Status: Current every day smoker tobacco type: cigarettes packs per day: 1 alcohol intake: never substance use type: denies use current occupational status: other Travel in the last 8 weeks?: None household members: spouse and children housing: house PM Subjective & Objective Subjective Subjective:: Patient is a pleasant 59-year-old female who presents today for severe pain in her right shoulder. She is rating it at least a 9 out of 10. Patient denies any specific fall however she states that about a month ago she was carrying a cooler and it was achy during that timeframe. She states that a few days later it started to get much worse and did even have popping. She states any little bit of movement even lowering her arm down causes severe pain and disability. Patient states she is not even sleeping due to the worsening symptoms. Patient denies any prior surgery in this joint. Patient feels like it is an aching, throbbing sensation with sharp shooting pains and even a catching sensation. Her Driss has been reviewed and is appropriate. Review of Systems: General: No recent weight changes, no fever, no sleep disturbances Respiratory: No cough, no shortness of air, no recurring pulmonary infections Cardiovascular/peripheral vascular: No chest pain, no palpitations, no edema, no shortness of breath Gastrointestinal: No new onset incontinence, normal bowel movements reported Genitourinary: No new onset incontinence Musculoskeletal: Right shoulder pain Psychiatric: [Normal mood/affect] Neurological: [Denies weakness in extremities], [denies balance issues] Pain at rest (0-10 scale): 9 Objective Objective:: Physical Exam: General: Alert and oriented x3, no acute distress, pleasant and cooperative Lungs: Respirations even and unlabored, symmetrical chest expansion Eyes: PERRL Musculoskeletal: Flexion and extension of right shoulder somewhat guarded secondary to pain, [antalgic gait noted] extreme pain with movements of external rotation and shoulder abduction Neurological: Speech clear, no gross sensory deficit Has patient had previous pain injection?: No Conservative treatment options previously tried: Home exercise plan Length of treatment: Longer than 12 weeks Meds Home Medications and Allergies Home Medications ?Medication ?Instructions ?Recorded ?Confirmed ?Type diphenhydramine HCl 25 mg capsule See Rx Instructions .Route 10/28/23 01/09/25 Rx (Benadryl) .COMPLEX #2 caps albuterol sulfate 90 mcg/actuation 2 inh inhalation Q6H PRN shortness 04/14/24 01/09/25 Rx aerosol inhaler of breath or wheezing 90 days #8.5 grams fluticasone propionate 50 1 spray intranasal BID 90 days #16 05/05/24 01/09/25 Rx mcg/actuation nasal grams spray,suspension (Flonase Allergy Relief) lisinopril 20 mg tablet 20 mg PO DAILY #90 tabs 05/05/24 01/09/25 Rx umeclidinium 62.5 mcg-vilanterol See Rx Instructions .Route 05/05/24 01/09/25 Rx 25 mcg/actuation powdr for .COMPLEX #60 ea inhalation (Anoro Ellipta) albuterol sulfate 2.5 mg/3 mL 2.5 mg (3 mL) inhalation Q6H #720 06/07/24 01/09/25 Rx (0.083 %) solution for nebulization mL ipratropium 0.5 mg-albuterol 3 mg 3 ml inhalation Q6H PRN shortness 06/24/24 01/09/25 Rx (2.5 mg base)/3 mL nebulization of breath #180 mL soln prochlorperazine maleate 10 mg 10 mg PO Q6H PRN nausea and 07/08/24 01/09/25 Rx tablet (Compazine) vomiting #60 tabs hydroxyzine HCl 10 mg tablet 10 mg PO HS PRN itching #30 tabs 07/25/24 01/09/25 Rx benzonatate 200 mg capsule 200 mg PO TID PRN cough #90 caps 09/22/24 01/09/25 Rx desvenlafaxine succinate 50 mg 50 mg PO DAILY #90 tabs 09/22/24 01/09/25 Rx tablet,extended release 24 hr (Pristiq) lorazepam 2 mg tablet 2 mg PO DAILY PRN anxiety #20 tabs 09/22/24 01/09/25 Rx levothyroxine 112 mcg tablet 224 mcg (2 x 112 mcg) PO DAILY 09/23/24 01/09/25 Rx (Synthroid) #180 tabs ropinirole 0.25 mg tablet 0.25 mg PO BID #28 tabs 10/03/24 01/09/25 Rx ropinirole 0.5 mg tablet 0.5 mg PO HS #30 tabs 12/05/24 01/09/25 Rx nystatin 100,000 unit/gram topical 1 applic topical QID #30 grams 01/09/25 01/09/25 Rx cream New Prescriptions to Start Prescriptions: Allergies Allergy/AdvReac Type Severity Reaction Status Date / Time estrogens, conjugated (From Allergy Severe Hives Verified 01/09/25 10:28 Premarin) Iodinated Contrast Media Allergy Unknown Unknown Verified 01/09/25 10:28 allergy reaction flu vaccine Allergy rash Uncoded 01/09/25 10:28 Assessment and Plan *Assessment and plan (1) Right shoulder pain: Status: Acute Category: Medical Code(s): M25.511 - Pain in right shoulder Plan Patient is experiencing severe pain in her right shoulder with very limited range of motion during today's visit. Patient had extreme pain with flexion, extension, shoulder abduction and external rotation. I did discuss with the patient due to the severity of her pain that I do question whether or not she has a possible tear. I will order x-ray imaging as well as MRI without contrast of her right shoulder. Patient was counseled if it ends up being a tear that we will plan on sending her to orthopedics for possible surgical evaluation. I will send in a 5-day dose of prednisone 20 mg twice daily. Patient will return to clinic in 2 weeks following her MRI imaging. Patient was counseled if it ends up being delayed we will adjust this appointment date. Patient has been instructed to contact the clinic with any concerns before the next appointment. Dr. Ramirez has reviewed this note and agrees with this plan of care. This note was dictated using voice recognition software and make contain errors or omissions. All injections are used with Lidocaine, Bupivacaine and dexamethasone. Occasionally urine drug screen is needed to verify patient's compliance with our office pain contract. This is ordered based off specific treatments related to chronic pain with the potential to abuse certain medications.
--- NOTE | 2025-01-23 12:07 | XR_ITS ---
FINAL REPORT CLINICAL HISTORY: Right shoulder pain FINDINGS: RIGHT SHOULDER Three views demonstrate no acute fracture. There is questionable anterior subluxation which could be better evaluated with axillary view or CT. The visualized joint spaces are normally aligned. The soft tissues are unremarkable. IMPRESSION: Possible mild subluxation. Recommend axillary view or CT for further evaluation. Reviewed, Interpreted and Dictated by Cherri Newman MD Transcribed by Serenity Webster Authenticated and [facility]
[2025-01-23 12:55] VITALS: BP 140/88; PULSE 75; RESP 18; O2SAT 97; BMI 34.5
== END 2025-01-23 23:59 | disposition home or self-care (01) ==
PROVIDERS: PCP Family Medicine; Visit Provider Nurse Practitioner Family
DX: M25.511 Pain in right shoulder (principal); Z79.52 Long term (current) use of systemic steroids
CPT/HCPCS: 73030; 99212; G0463

== ENCOUNTER 2025-01-27 15:03 | Outpatient (CLI) | payer BC, SELFPAY ==
--- OUTSIDE RECORDS SUMMARY | 2025-01-27 15:05 | XMS_ITS | Clinical Summary ---
Author Organization [facility] Address [address] [place] [address] Phone Care Team Providers Care Plastics Fabricator And Assembler Name Role Phone [place] VIRK Jennifer Rosalva [phone] Conditions or Problems Problem Name Problem Code Onset Date Status Entry Date Provider Comment Standard Description Annotate *AFTRCR FOLLOW SRG MUSCULOSKELETAL SYSTEM NEC Z48.89 (ICD-10-CM ) 11/01 Active 11/01 Jennifer Callahan MA Encounter for other specified surgical aftercare HERNIATED LUMBAR DISK WITH RADICULOPATHY 480928111 (SNOMED CT) 09/21 Active 09/28 Katherine Weir Lumbar disc prolapse with radiculopathy PRE-OP EXAM 445894161 (SNOMED CT) 08/23 Active 08/23 Fer Quevedo MD Special examination - general OVERWEIGHT 431145002 (SNOMED CT) 08/23 Active 08/23 Jennifer Callahan MA Overweight LOW BACK PAIN 204061182 (SNOMED CT) 08/18 Active 08/18 Bettie Ford MA Low back pain HERNIATED NUCLEUS PULPOSUS 37665121 (SNOMED CT) 08/17 Active 08/17 Riccardo Andrade Herniation of nucleus pulposus L2-3 LUMBAR RADICULOPATHY 602118833 (SNOMED CT) 08/17 Active 08/17 Riccardo Andrade Lumbar radiculopathy Medications Medication Instructions Start Date Stop Date Generic Name NDC Provider GABAPENTIN 300 MG CAPS 1 po qd x 3 days, 1 bid x 3 days then 1 tid there after 6 GABAPENTIN 25161172881 Jennifer Callahan MA GABAPENTIN 300 MG CAPS 1 po tid GABAPENTIN 60896412940 Fer Quevedo MD GABAPENTIN 300 MG CAPS 1 po qd x 3 days, 1 bid x 3 days then 1 tid there after 12/13 GABAPENTIN 32676287390 Fer Quevedo MD TRAMADOL HCL 50 MG TABS 1 PO BID TRAMADOL HCL 02554531355 Fer Quevedo MD NORCO 5-325 MG ORAL TABLET 1 po TID 11/01 HYDROCODONE-ACETA MINOPHEN 46634953483 Jennifer Callahan MA NORCO 5-325 MG ORAL TABLET 1 po TID 11/01 HYDROCODONE-ACETA MINOPHEN 42960503151 Fer Quevedo MD PERCOCET 5-325 MG TABS 1-2 po q4-6 hrs prn pain max 8/day 10/04 OXYCODONE-ACETAMI NOPHEN 00830532034 Erasmo Jackson PERCOCET 5-325 MG TABS 1-2 po q4-6 hrs prn pain max 8/day 10/25 OXYCODONE-ACETAMI NOPHEN 50561984795 Fer Quevedo MD HIBICLENS 4 % EXTERNAL LIQUID Wash the entire back and both hip/buttock areas the night prior to the surgery 09/21 CHLORHEXIDINE GLUCONATE 97042328246 Fer Quevedo MD HIBICLEFELECIA 4 % EXTERNAL LIQUID Wash the entire back and both hip/buttock areas the night prior to the surgery 09/21 CHLORHEXIDINE GLUCONATE 92247630565 Fer Quevedo MD CYCLOBENZAPRINE HCL 10 MG TABS 1 tab Q8H prn CYCLOBENZAPRINE HCL 68663725475 Ismael Luis MD CYCLOBENZAPRINE HCL 10 MG TABS [facility] 08/18 CYCLOBENZAPRINE HCL [id number] Riccardo Andrade PRINIVIL 20 MG ORAL TABLET [facility] LISINOPRIL [id number] Bettie Ford MA CYCLOBENZAPRINE HCL 10 MG TABS [facility] 08/18 CYCLOBENZAPRINE HCL [id number] Bettie Ford MA VENTOLIN HFA AERS [facility] ALBUTEROL SULFATE AERS 56111791690 Bettie Ford MA GNP VITAMIN C TABS [facility] ASCORBIC ACID TABS 54855632719 Bettie Ford MA VITAMIN D3 TABS [facility] CHOLECALCIFEROL TABS 58240258938 Bettie Ford MA LOPID 600 MG TABS [facility] GEMFIBROZIL 16143846135 Bettie Ford MA PROZAC 20 MG CAPS [facility] FLUOXETINE HCL 63139036549 Bettie Ford MA PROVIGIL TABLET [facility] MODAFINIL TABS 27029914269 Bettie Ford MA TRAZODONE HCL TABS [facility] TRAZODONE HCL TABS [id number] Bettie Ford MA SYNTHROID TABS [facility] LEVOTHYROXINE SODIUM TABS 31303264796 Bettie Ford MA Medications Administered No information [...] Procedures Code Procedure Name Date Entry Date [facility]-[id number] Tobacco Cessation Counseling Performed 2 [facility]-[id number] Tobacco Cessation Counseling Performed 2 [facility]-[id number] Tobacco Cessation Counseling Performed 2 [facility]-[id number] Flu Shot Declined 3 [facility]-[id number] Tobacco Cessation Counseling Performed 2 [facility]-[id number] Flu Shot Contraindicated 20 24/08/12 [facility]-[id number] Tobacco Cessation Counseling Performed 2 Vital Signs [...]
--- NOTE | 2025-01-27 15:06 | MR_ITS ---
PROCEDURE INFORMATION: Exam: MR Right Upper Extremity Joint Without Contrast; Shoulder Exam date and time: 01/27/2025 3:51 PM Age: 59 years old Clinical indication: Right shoulder pain , injury x weeks ago , felt pop. Lrom; Additional info: RT shoulder pain TECHNIQUE: Imaging protocol: Magnetic resonance imaging of the right upper extremity without contrast. Exam focused on the shoulder. COMPARISON: CR XR SHOULDER RT MIN 2V 01/23/2025 12:25 PM FINDINGS: Bones/joints: The alignment of the glenohumeral joint is near anatomic. There is no acute fracture seen. No suspicious marrow signal. The acromioclavicular joint has moderate osteoarthrosis. There is minimal reactive bone marrow edema with capsular hypertrophy present. The glenohumeral joint has moderate diffuse chondromalacia with marginal osteophyte formation. Minimal joint effusion. There are degenerative subchondral cystic changes present in the proximal humerus. Glenoid labrum: The labrum is degenerated with nondisplaced circumferential tearing. Bursae: There is subacromial bursitis present. Supraspinatus tendon: There is a high-grade partial-thickness tear of the posterior articular sided fibers of supraspinatus and anterior fibers of infraspinatus involving the conjoined tendon measuring 1.8 cm AP with associated tendinosis. There is interstitial extension of the tear through the critical zone to involve the mild tendinous junction of infraspinatus. Infraspinatus tendon: See Supraspinatus tendon finding. Subscapularis tendon: Subscapularis has tendinosis with low-grade articular sided tearing. Teres minor tendon: The teres minor tendon appears grossly intact. Tendon of biceps brachii: There is tendinosis of the intra-articular biceps tendon. Glenohumeral ligaments: The inferior glenohumeral ligament is thickened without edema pattern. Soft tissues: No muscular atrophy. IMPRESSION: 1. Rotator cuff tendinopathy with high-grade near full-thickness articular sided tear of supraspinatus and infraspinatus at the conjoined tendon and interstitial extension to infraspinatus. No muscular atrophy. 2. Labral degeneration with nondisplaced circumferential tearing. Intra-articular biceps tendinosis. 3. Moderate acromioclavicular and glenohumeral joint osteoarthrosis.
--- OUTSIDE RECORDS SUMMARY | 2025-01-27 15:06 | XMS_ITS | Clinical Summary ---
Author Organization [facility] Address [address] [place] [address] Phone Care Team Providers Care Cultured Marble Products Maker Name Role Phone Joon Lakhani MD Primary Care Provider [phone] Allergies Active Allergy Reactions Criticality Noted Date [...] EDT) Sodium 132(L) 136 - 145 mmol/L [facility] Potassium 4.0 3.5 - 5.0 mmol/L [facility] Chloride 95(L) 98 - 107 mmol/L [facility] Total CO2 23 22 - 29 mmol/L [facility] Anion Gap 14 7 - 16 mmol/L [facility] Calcium 10.1 8.6 - 10.2 mg/dL [facility] Glucose Lvl 85 74 - 100 mg/dL [facility] BUN 13 6 - 20 mg/dL [facility] Creatinine 0.63 0.51 - 1.00 mg/dL [facility] GFR Afr Am >60 SE LAB [...] MD CHEMISTRY ORDERABLES Edited Result - Final [facility] [address] [place] [address] * ACUTE HEPATITIS PANEL (04/07/2013 8:53 AM [...] R esult - Final Performing Organization Address [facility]/ZIP Co de Phone Number [facility] [address] [place] [address] from Last 3 Months or Most Recently Relevant to Health Maintenance Insurance O O Care Teams Cultured Marble Products Maker Relationship Specialty Start Date End Date Joon Lakhani MD PCP - General Family Medicine 04/06/13
--- OUTSIDE RECORDS SUMMARY | 2025-01-27 15:06 | XMS_ITS | Referral Summary ---
Author Organization [facility] Address [address] [place] [address] Care Team Providers Care Produce Inspector Name Role Phone Joon Lakhani MD Primary Care Provider [phone] Allergies Active Allergy Reactions Criticality Noted Date [...] Plan of Treatment Not on file Insurance [facility] ALL OTHERS NOT MEDICARE Care Teams Produce Inspector Relationship Specialty Start Date End Date Joon Lakhani MD PCP - General Family Medicine 03/21/16
--- OUTSIDE RECORDS SUMMARY | 2025-01-27 15:06 | XMS_ITS | Clinical Summary ---
Author Organization [facility] Address [address] [place] [address] Care Team Providers Care Bike Designer Name Role Phone Joon Lakhani MD Primary Care Provider [phone] Allergies Active Allergy Reactions Criticality Noted Date [...] CROSS ALL OTHERS NOT MEDICARE Care Teams Bike Designer Relationship Specialty Start Date End Date Joon Lakhani MD PCP - General Family Medicine 03/21/16
--- OUTSIDE RECORDS SUMMARY | 2025-01-27 15:06 | XMS_ITS | Clinical Summary ---
Author Organization [facility] Address [address] [place] [address] Care Team Providers Care Fishing Captain Name Role Phone Unavailable Primary Care Provider Unavailabl e Source Comments [facility] is fully rolled out with thefollowing exceptions:General Clinical Research [facility] Social History Tobacco Use Types [...] to Patient Date of Phone Billing Address [facility] Reference Lab Self [address] [place] [address] ADRIENNE GARCIA
--- OUTSIDE RECORDS SUMMARY | 2025-01-27 15:06 | XMS_ITS | Clinical Summary ---
Author Organization [facility] Address [address] [place] [address], [address] [place] [address] Care Team Providers Care Tourist Adviser Name Role Phone Unavailable Primary Care Provider [...]
== END 2025-01-27 23:59 | disposition home or self-care (01) ==
LOC: RAD 15:04
PROVIDERS: PCP Family Medicine; Visit Provider Nurse Practitioner Family
DX: M19.011 Primary osteoarthritis, right shoulder (principal); S46.011A Strain of muscle(s) and tendon(s) of the rotator cuff of right shoulder, initial encounter; S43.431A Superior glenoid labrum lesion of right shoulder, initial encounter; X58.XXXA Exposure to other specified factors, initial encounter
CPT/HCPCS: 73221

== ENCOUNTER 2025-02-13 11:14 | Outpatient (POV) | payer BC, SELFPAY ==
--- OUTSIDE RECORDS SUMMARY | 2025-02-13 11:22 | XMS_ITS | Clinical Summary ---
Author Organization [facility] Address [address] [place] [address] Care Team Providers Care Pre Certification Specialist Name Role Phone Unavailable Primary Care Provider Unavailabl e Source Comments [facility] is fully rolled out with thefollowing exceptions:General Clinical Research [facility] Social History Tobacco Use Types Packs/Day [...] to Patient Date of Phone Billing Address [facility] Reference Lab Self [address] [place] [address] ADRIENNE GARCIA
--- OUTSIDE RECORDS SUMMARY | 2025-02-13 11:22 | XMS_ITS | Clinical Summary ---
Author Organization [facility] Address [address] [place] [address], [address] [place] [address] Care Team Providers Care Media Aid Name Role Phone Unavailable Primary Care Provider [...]
--- OUTSIDE RECORDS SUMMARY | 2025-02-13 11:22 | XMS_ITS | Clinical Summary ---
Author Organization [facility] Address [address] [place] [address] Care Team Providers Care Operations Boardman Name Role Phone Joon Lakhani MD Primary Care Provider [phone] Allergies Active Allergy Reactions Criticality Noted Date [...] CROSS ALL OTHERS NOT MEDICARE Care Teams Operations Boardman Relationship Specialty Start Date End Date Joon Lakhani MD PCP - General Family Medicine 03/21/16
--- OUTSIDE RECORDS SUMMARY | 2025-02-13 11:22 | XMS_ITS | Clinical Summary ---
Author Organization [facility] Address [address] [place] [address] Phone Care Team Providers Care Tire Builder Heavy Service Name Role Phone [place] VIRK Jennifer Rosalva [phone] Conditions or Problems Problem Name Problem Code Onset Date Status Entry Date Provider Comment Standard Description Annotate *AFTRCR FOLLOW SRG MUSCULOSKELETAL SYSTEM NEC Z48.89 (ICD-10-CM ) 11/01 Active 11/01 Jennifer Callahan MA Encounter for other specified surgical aftercare HERNIATED LUMBAR DISK WITH RADICULOPATHY 283931404 (SNOMED CT) 09/21 Active 09/28 Katherine Weir Lumbar disc prolapse with radiculopathy PRE-OP EXAM 691361951 (SNOMED CT) 08/23 Active 08/23 Fer Quevedo MD Special examination - general OVERWEIGHT 770387950 (SNOMED CT) 08/23 Active 08/23 Jennifer Callahan MA Overweight LOW BACK PAIN 153036616 (SNOMED CT) 08/18 Active 08/18 Bettie Ford MA Low back pain HERNIATED NUCLEUS PULPOSUS 21910391 (SNOMED CT) 08/17 Active 08/17 Riccardo Andrade Herniation of nucleus pulposus L2-3 LUMBAR RADICULOPATHY 602066987 (SNOMED CT) 08/17 Active 08/17 Riccardo Andrade Lumbar radiculopathy Medications Medication Instructions Start Date Stop Date Generic Name NDC Provider GABAPENTIN 300 MG CAPS 1 po qd x 3 days, 1 bid x 3 days then 1 tid there after 610 GABAPENTIN [id number] Jennifer Callahan MA GABAPENTIN 300 MG CAPS 1 po tid GABAPENTIN 93604540103 Fer Quevedo MD GABAPENTIN 300 MG CAPS 1 po qd x 3 days, 1 bid x 3 days then 1 tid there after 12/13 GABAPENTIN 98680453650 Fer Quevedo MD TRAMADOL HCL 50 MG TABS 1 PO BID TRAMADOL HCL 90816425780 Fer Quevedo MD NORCO 5-325 MG ORAL TABLET 1 po TID 11/01 HYDROCODONE-ACETA MINOPHEN 78699787188 Jennifer Callahan MA NORCO 5-325 MG ORAL TABLET 1 po TID 11/01 HYDROCODONE-ACETA MINOPHEN 75312321599 Fer Quevedo MD PERCOCET 5-325 MG TABS 1-2 po q4-6 hrs prn pain max 8/day 10/04 OXYCODONE-ACETAMI NOPHEN 10618662904 Erasmo Jackson PERCOCET 5-325 MG TABS 1-2 po q4-6 hrs prn pain max 8/day 10/25 OXYCODONE-ACETAMI NOPHEN 45896314568 Fer Quevedo MD HIBICLENS 4 % EXTERNAL LIQUID Wash the entire back and both hip/buttock areas the night prior to the surgery 09/21 CHLORHEXIDINE GLUCONATE 70427938594 Fer Quevedo MD HIBICLEFEELCIA 4 % EXTERNAL LIQUID Wash the entire back and both hip/buttock areas the night prior to the surgery 09/21 CHLORHEXIDINE GLUCONATE [id number] Fer Quevedo MD CYCLOBENZAPRINE HCL 10 MG TABS 1 tab Q8H prn CYCLOBENZAPRINE HCL 26935412430 Ismael Luis MD CYCLOBENZAPRINE HCL 10 MG TABS [facility] 08/18 CYCLOBENZAPRINE HCL [id number] Riccardo Andrade PRINIVIL 20 MG ORAL TABLET [facility] LISINOPRIL [id number] Bettie Ford MA CYCLOBENZAPRINE HCL 10 MG TABS [facility] 08/18 CYCLOBENZAPRINE HCL [id number] Bettie Ford MA VENTOLIN HFA AERS [facility] ALBUTEROL SULFATE AERS [id number] Bettie Ford MA GNP VITAMIN C TABS [facility] ASCORBIC ACID TABS 38602578034 Bettie Ford MA VITAMIN D3 TABS [facility] CHOLECALCIFEROL TABS 03868028823 Bettie Ford MA LOPID 600 MG TABS [facility] GEMFIBROZIL [id number] Bettie Ford MA PROZAC 20 MG CAPS [facility] FLUOXETINE HCL 53465247258 Bettie Ford MA PROVIGIL TABLET [facility] MODAFINIL TABS 95259093105 Bettie Ford MA TRAZODONE HCL TABS [facility] TRAZODONE HCL TABS 23086973639 Bettie Ford MA SYNTHROID TABS [facility] LEVOTHYROXINE SODIUM TABS 24307365010 Bettie Ford MA Medications Administered No information [...] Name Date Entry Date [facility]-[id number] Tobacco Cessation Counseling Performed 2 [facility]-[id number] Tobacco Cessation Counseling Performed 2 [facility]-[id number] Tobacco Cessation Counseling Performed 2 [facility]-[id number] Flu Shot Declined 3 [facility]-[id number] Tobacco Cessation Counseling Performed 2 [facility]-[id number] Flu Shot Contraindicated 20 24/08/12 [facility]-[id number] Tobacco Cessation Counseling Performed 2 Vital Signs [...]
--- OUTSIDE RECORDS SUMMARY | 2025-02-13 11:22 | XMS_ITS | Clinical Summary ---
Author Organization [facility] Address [address] [place] [address] Phone Care Team Providers Care Stretch Box Tender Name Role Phone Joon Lakhani MD Primary Care Provider [phone] Allergies Active Allergy Reactions Criticality Noted Date [...] Comments Annual Wellness Exam 10/01/1966 Lipids 10/01/1973 Diabetic Eye Exam 10/01/1981 Hemoglobin A1c 10/01/1981 Kidney Health: uACR 10/01/1981 DTaP/TDaP/Td (1 - Tdap) 10/01/1982 Cervical [...] EDT) Sodium 132(L) 136 - 145 mmol/L [facility] Potassium 4.0 3.5 - 5.0 mmol/L [facility] Chloride 95(L) 98 - 107 mmol/L [facility] Total CO2 23 22 - 29 mmol/L [facility] Anion Gap 14 7 - 16 mmol/L [facility] Calcium 10.1 8.6 - 10.2 mg/dL [facility] Glucose Lvl 85 74 - 100 mg/dL [facility] BUN 13 6 - 20 mg/dL [facility] Creatinine 0.63 0.51 - 1.00 mg/dL [facility] GFR Afr Am >60 SE [...] MD CHEMISTRY ORDERABLES Edited Result - Final [facility] [address] [place] [address] * ACUTE HEPATITIS PANEL (04/07/2013 8:53 AM [...] R esult - Final Performing Organization Address [facility]/ZIP Co de Phone Number [facility] [address] [place] [address] from Last 3 Months or Most Recently Relevant to Health Maintenance Insurance O O Care Teams Stretch Box Tender Relationship Specialty Start Date End Date Joon Lakhani MD PCP - General Family Medicine 04/06/13
--- OUTSIDE RECORDS SUMMARY | 2025-02-13 11:22 | XMS_ITS | Referral Summary ---
Author Organization [facility] Address [address] [place] [address] Care Team Providers Care Editing Clerk Name Role Phone Joon Lakhani MD Primary Care Provider [phone] Allergies Active Allergy Reactions Criticality Noted Date [...] Plan of Treatment Not on file Insurance [facility] ALL OTHERS NOT MEDICARE Care Teams Editing Clerk Relationship Specialty Start Date End Date Joon Lakhani MD PCP - General Family Medicine 03/21/16
--- NOTE | 2025-02-13 11:39 | EXP.PAIN.SOA ---
[facility] Disclaimer: The information contained in this section may have been updated after the patient was seen, as this information can be updated by other users. Medical History Allergic rhinitis Tobacco abuse disorder Tobacco abuse counseling Screening for lung cancer Smoking greater than 30 pack years COPD (chronic obstructive pulmonary disease) Exertional shortness of breath Surgical History History of total hysterectomy History of hernia repair Hx of cholecystectomy History of appendectomy Family History Other Asthma Coronary artery disease Diabetes Hyperlipidemia Hypertension Social History Smoking Status: Current every day smoker tobacco type: cigarettes packs per day: 1 alcohol intake: never substance use type: denies use current occupational status: other Travel in the last 8 weeks?: None household members: spouse and children housing: house PM Subjective & Objective Subjective Subjective:: Patient is a pleasant 59-year-old female who presents today for worsening pain. She rates her pain a 10 out of 10. Patient states all of the pain is all there at that right shoulder still. She states that her low back is doing wonderful and only rates that a 1 out of 10 it is just the shoulder. Patient was sent for referral to orthopedics there at [place] however she states today that she had issues at this hospital in the past where her mother and she wants nothing to do with this location. Patient is requesting if we can send a referral to Ortho since he. Patient does state that she is still having quite a bit of problems and limited range of motion of her shoulder. She states that she just rolled over the other night and it popped again causing severe pain. She states the pain is debilitating and that she cannot do anything due to this. She states that the prednisone we sent in seem to not make any difference whatsoever but that the tramadol did at least help take the edge off. Patient is still using compounded cream that helps additionally. Patient does make mention that even the tramadol when she picked it up she only got a 7-day dose due to insurance. Patient is asking for any help that we may be able to provide. Her Driss has been reviewed and is appropriate. Review of Systems: General: No recent weight changes, no fever, no sleep disturbances Respiratory: No cough, no shortness of air, no recurring pulmonary infections Cardiovascular/peripheral vascular: No chest pain, no palpitations, no edema, no shortness of breath Gastrointestinal: No new onset incontinence, normal bowel movements reported Genitourinary: No new onset incontinence Musculoskeletal: Right shoulder pain Psychiatric: [Normal mood/affect] Neurological: [Denies weakness in extremities], [denies balance issues] Pain at rest (0-10 scale): 10 Objective Objective:: Physical Exam: General: Alert and oriented x3, no acute distress, pleasant and cooperative Lungs: Respirations even and unlabored, symmetrical chest expansion Eyes: PERRL Musculoskeletal: Flexion and extension of right shoulder somewhat guarded secondary to pain, [antalgic gait noted] Neurological: Speech clear, no gross sensory deficit Has patient had previous pain injection?: No Conservative treatment options previously tried: Home exercise plan Length of treatment: Longer than 12 weeks Meds Home Medications and Allergies Home Medications ?Medication ?Instructions ?Recorded ?Confirmed ?Type diphenhydramine HCl 25 mg capsule See Rx Instructions .Route 10/28/23 01/23/25 Rx (Benadryl) .COMPLEX #2 caps albuterol sulfate 90 mcg/actuation 2 inh inhalation Q6H PRN shortness 04/14/24 01/23/25 Rx aerosol inhaler of breath or wheezing 90 days #8.5 grams fluticasone propionate 50 1 spray intranasal BID 90 days #16 05/05/24 01/23/25 Rx mcg/actuation nasal grams spray,suspension (Flonase Allergy Relief) lisinopril 20 mg tablet 20 mg PO DAILY #90 tabs 05/05/24 01/23/25 Rx umeclidinium 62.5 mcg-vilanterol See Rx Instructions .Route 05/05/24 01/23/25 Rx 25 mcg/actuation powdr for .COMPLEX #60 ea inhalation (Anoro Ellipta) albuterol sulfate 2.5 mg/3 mL 2.5 mg (3 mL) inhalation Q6H #720 06/07/24 01/23/25 Rx (0.083 %) solution for nebulization mL ipratropium 0.5 mg-albuterol 3 mg 3 ml inhalation Q6H PRN shortness 06/24/24 01/23/25 Rx (2.5 mg base)/3 mL nebulization of breath #180 mL soln prochlorperazine maleate 10 mg 10 mg PO Q6H PRN nausea and 07/08/24 01/23/25 Rx tablet (Compazine) vomiting #60 tabs hydroxyzine HCl 10 mg tablet 10 mg PO HS PRN itching #30 tabs 07/25/24 01/23/25 Rx benzonatate 200 mg capsule 200 mg PO TID PRN cough #90 caps 09/22/24 01/23/25 Rx desvenlafaxine succinate 50 mg 50 mg PO DAILY #90 tabs 09/22/24 01/23/25 Rx tablet,extended release 24 hr (Pristiq) lorazepam 2 mg tablet 2 mg PO DAILY PRN anxiety #20 tabs 09/22/24 01/23/25 Rx levothyroxine 112 mcg tablet 224 mcg (2 x 112 mcg) PO DAILY 09/23/24 01/23/25 Rx (Synthroid) #180 tabs ropinirole 0.25 mg tablet 0.25 mg PO BID #28 tabs 10/03/24 01/23/25 Rx ropinirole 0.5 mg tablet 0.5 mg PO HS #30 tabs 12/05/24 01/23/25 Rx nystatin 100,000 unit/gram topical 1 applic topical QID #30 grams 01/09/25 01/23/25 Rx cream prednisone 20 mg tablet 20 mg PO BID #10 tabs 01/23/25 Rx tramadol 50 mg tablet 50 mg PO BID PRN pain #28 tabs 01/25/25 Rx New Prescriptions to Start Prescriptions: Allergies Allergy/AdvReac Type Severity Reaction Status Date / Time estrogens, conjugated (From Allergy Severe Hives Verified 01/09/25 10:28 Premarin) Iodinated Contrast Media Allergy Unknown Unknown Verified 01/09/25 10:28 allergy reaction flu vaccine Allergy rash Uncoded 01/09/25 10:28 Assessment and Plan *Assessment and plan (1) Right shoulder pain: Status: Acute Category: Medical Code(s): M25.511 - Pain in right shoulder Plan I did discuss with the patient that we will send a new referral today for her right shoulder due to the rotator cuff tendinopathy with high-grade near full-thickness articular tear of the supraspinatus and infraspinatus tendons. Patient did also have on her imaging labral degeneration, intra-articular biceps tendinosis and osteoarthritis. I will refill the patient's tramadol but increase it to 3 times a day. Patient was counseled that if she has any issues with insurance to please call us back or have the pharmacy send as a prior authorization if that is the issue. Patient will return to clinic in 1 month for reevaluation of symptoms and plan of care. Risks and benefits of the medication have been explained in detail to the patient. The patient does understand the risk of dependence on the medication when given over a prolonged period. Patient has been advised of risks of oversedation with the prescribed medication. Narcan has been offered to the paitent in the event of oversedation. Patient has been advised that a family member should also be educated regarding administration of Narcan. The patient has been advised to consult with his/her primary care provider and pharmacist regarding drug-drug interaction of medications currently prescribed. Patient has been prescribed a controlled substance after being counseled on the medication, medication safety, and possible side effects. Opioid contract was reviewed and signed by the patient, and that they have agreed to all of the terms set forth by our compliance program. A UDS is needed to verify patient's compliance with our office pain contract. This is ordered based off specific treatments related to chronic pain with the potential to abuse certain medications. Patient has been instructed to contact the clinic with any concerns before the next appointment. Dr. Ramirez has reviewed this note and agrees with this plan of care. This note was dictated using voice recognition software and make contain errors or omissions.
[2025-02-13 12:03] VITALS: BP 150/95; PULSE 86; RESP 14; O2SAT 99; BMI 35.4
== END 2025-02-13 23:59 | disposition home or self-care (01) ==
PROVIDERS: PCP Family Medicine; Visit Provider Nurse Practitioner Family
DX: M25.511 Pain in right shoulder (principal); Z79.891 Long term (current) use of opiate analgesic
CPT/HCPCS: 99212; G0463

== ENCOUNTER 2025-05-17 11:05 | Outpatient (CLI) | payer BC, SELFPAY ==
[2025-05-17 16:27] LABS: Alanine Aminotransferase 67 U/L (12-78); Albumin Level 4.0 g/dl (3.5-5.0); Albumin/Globulin Ratio 1.4 (1.1-1.8); Anion Gap 9.3 mEq/L (5-15); Aspartate Amino Transferase 72 U/L (14-36); Bilirubin,Total 0.7 mg/dl (0.2-1.3); Blood Urea Nitrogen 13 mg/dl (7-17); Calcium 9.2 mg/dl (8.4-10.2); Carbon Dioxide 24 mmol/L (22.0-30.0); Chloride 106 mmol/L (98-107); Creatinine,Serum 0.70 mg/dl (0.52-1.04); Estimated Glomerular Filt Rate 85 ml/min (>60); GFR (African American) 103 ML/MIN (>60); Globulin 2.9 g/dL (1.3-3.2); Glucose 118 mg/dl (74-100); Potassium 4.3 mmoL/L (3.5-5.1); Sodium 135 mmol/L (136-145); Total Protein,Serum 6.9 g/dl (6.3-8.2); Triglycerides 216 mg/dl (30-150)
[2025-05-17 16:28] LABS: Alkaline Phosphatase 108 U/L (38-126); Cholesterol 201 mg/dl (140-200); HDL Cholesterol 35 mg/dl (40-60)
--- OUTSIDE RECORDS SUMMARY | 2025-05-18 11:17 | XMS_ITS | Clinical Summary ---
Author Organization [facility] Address [address] [place] [address] Phone Care Team Providers Care Expediter Clerk Name Role Phone [place] VIRK Jennifer Rosalva [phone] Conditions or Problems Problem Name Problem Code Onset Date Status Entry Date Provider Comment Standard Description Annotate *AFTRCR FOLLOW SRG MUSCULOSKELETAL SYSTEM NEC Z48.89 (ICD-10-CM ) 11/01 Active 11/01 Jennifer Callahan MA Encounter for other specified surgical aftercare HERNIATED LUMBAR DISK WITH RADICULOPATHY 607377107 (SNOMED CT) 09/21 Active 09/28 Katherine Weir Lumbar disc prolapse with radiculopathy PRE-OP EXAM 263745224 (SNOMED CT) 08/23 Active 08/23 Fer Quevedo MD Special examination - general OVERWEIGHT 128530619 (SNOMED CT) 08/23 Active 08/23 Jennifer Callahan MA Overweight LOW BACK PAIN 348340145 (SNOMED CT) 08/18 Active 08/18 Bettie Ford MA Low back pain HERNIATED NUCLEUS PULPOSUS 47664832 (SNOMED CT) 08/17 Active 08/17 Riccardo Andrade Herniation of nucleus pulposus L2-3 LUMBAR RADICULOPATHY 124739793 (SNOMED CT) 08/17 Active 08/17 Riccardo Andrade Lumbar radiculopathy Medications Medication Instructions Start Date Stop Date Generic Name NDC Provider GABAPENTIN 300 MG CAPS 1 po qd x 3 days, 1 bid x 3 days then 1 tid there after 610 GABAPENTIN 64832412763 Jennifer Callahan MA GABAPENTIN 300 MG CAPS 1 po tid GABAPENTIN 52193427032 Fer Quevedo MD GABAPENTIN 300 MG CAPS 1 po qd x 3 days, 1 bid x 3 days then 1 tid there after 12/13 GABAPENTIN 62401787725 Fer Quevedo MD TRAMADOL HCL 50 MG TABS 1 PO BID TRAMADOL HCL 65662980188 Fer Quevedo MD NORCO 5-325 MG ORAL TABLET 1 po TID 11/01 HYDROCODONE-ACETA MINOPHEN 66145936224 Jennifer Callahan MA NORCO 5-325 MG ORAL TABLET 1 po TID 11/01 HYDROCODONE-ACETA MINOPHEN 68474239646 Fer Quevedo MD PERCOCET 5-325 MG TABS 1-2 po q4-6 hrs prn pain max 8/day 10/04 OXYCODONE-ACETAMI NOPHEN 07219667044 Erasmo Jackson PERCOCET 5-325 MG TABS 1-2 po q4-6 hrs prn pain max 8/day 10/25 OXYCODONE-ACETAMI NOPHEN 92908106002 Fer Quevedo MD HIBICLENS 4 % EXTERNAL LIQUID Wash the entire back and both hip/buttock areas the night prior to the surgery 09/21 CHLORHEXIDINE GLUCONATE [id number] Fer Quevedo MD HIBICLEFELECIA 4 % EXTERNAL LIQUID Wash the entire back and both hip/buttock areas the night prior to the surgery 09/21 CHLORHEXIDINE GLUCONATE [id number] Fer Quevedo MD CYCLOBENZAPRINE HCL 10 MG TABS 1 tab Q8H prn CYCLOBENZAPRINE HCL [id number] Ismael Luis MD CYCLOBENZAPRINE HCL 10 MG TABS [facility] 08/18 CYCLOBENZAPRINE HCL [id number] Riccardo Andrade PRINIVIL 20 MG ORAL TABLET [facility] LISINOPRIL [id number] Bettie Ford MA CYCLOBENZAPRINE HCL 10 MG TABS [facility] 08/18 CYCLOBENZAPRINE HCL [id number] Bettie Ford MA VENTOLIN HFA AERS [facility] ALBUTEROL SULFATE AERS [id number] Bettie Ford MA GNP VITAMIN C TABS [facility] ASCORBIC ACID TABS 95470323222 Bettie Ford MA VITAMIN D3 TABS [facility] CHOLECALCIFEROL TABS [id number] Bettie Ford MA LOPID 600 MG TABS [facility] GEMFIBROZIL [id number] Bettie Ford MA PROZAC 20 MG CAPS [facility] FLUOXETINE HCL [id number] Bettie Ford MA PROVIGIL TABLET [facility] MODAFINIL TABS [id number] Bettie Ford MA TRAZODONE HCL TABS [facility] TRAZODONE HCL TABS 79102061830 Bettie Ford MA SYNTHROID TABS [facility] LEVOTHYROXINE SODIUM TABS [id number] Bettie Ford MA Medications Administered No information [...] Code Procedure Name Date Entry Date [facility]-[id number] Tobacco Cessation Counseling Performed 2 [facility]-[id number] Tobacco Cessation Counseling Performed 2 [facility]-[id number] Tobacco Cessation Counseling Performed 2 [facility]-[id number] Flu Shot Declined 3 [facility]-[id number] Tobacco Cessation Counseling Performed 2 [facility]-[id number] Flu Shot Contraindicated 20 24/08/12 [facility]-[id number] Tobacco Cessation Counseling Performed 2 Vital Signs [...]
--- OUTSIDE RECORDS SUMMARY | 2025-05-18 11:18 | XMS_ITS | Clinical Summary ---
Author Organization [facility] Address [address] [place] [address], [address] [place] [address] Care Team Providers Care Shift Manager Name Role Phone Unavailable Primary Care Provider [...]
--- OUTSIDE RECORDS SUMMARY | 2025-05-18 11:18 | XMS_ITS | Clinical Summary ---
Author Organization [facility] Address [address] [place] [address] Phone Care Team Providers Care Business Objects Report Developer Name Role Phone Joon Lakhani MD Primary Care Provider [phone] Allergies Active Allergy Reactions Criticality Noted Date [...] Colonoscopy 10/22/2023 10/21/2013 COVID-19 Vaccine (3 - 2024-2 6 season) 2025 10/11/2020, 09/13/2020 Influenza Vaccine (#1) 2025 Hepatitis [...] EDT) Sodium 132(L) 136 - 145 mmol/L [facility] Potassium 4.0 3.5 - 5.0 mmol/L [facility] Chloride 95(L) 98 - 107 mmol/L [facility] Total CO2 23 22 - 29 mmol/L [facility] Anion Gap 14 7 - 16 mmol/L [facility] Calcium 10.1 8.6 - 10.2 mg/dL [facility] Glucose Lvl 85 74 - 100 mg/dL [facility] BUN 13 6 - 20 mg/dL [facility] Creatinine 0.63 0.51 - 1.00 mg/dL [facility] GFR Afr Am >60 [facility] Comment: GFR is estimated using creatinine, [...] MD CHEMISTRY ORDERABLES Edited Result - Final [facility] [address] [place] [address] * ACUTE HEPATITIS PANEL (04/07/2013 8:53 AM [...] R esult - Final Performing Organization Address [facility] [[email or web address]] Co de Phone Number [facility] [address] [place] [address] from Last 3 Months or Most Recently Relevant to Health Maintenance Insurance O Care Teams Business Objects Report Developer Relationship Specialty Start Date End Date Joon Lakhani MD PCP - General Family Medicine 04/06/13
--- OUTSIDE RECORDS SUMMARY | 2025-05-18 11:18 | XMS_ITS | Clinical Summary ---
Author Organization [facility] Address [address] [place] [address] Care Team Providers Care Traveling Crane Operator Name Role Phone Joon Lakhani MD Primary Care Provider [phone] Allergies Active Allergy Reactions Criticality Noted Date [...] CROSS ALL OTHERS NOT MEDICARE Care Teams Traveling Crane Operator Relationship Specialty Start Date End Date Joon Lakhani MD PCP - General Family Medicine 03/21/16
--- OUTSIDE RECORDS SUMMARY | 2025-05-18 11:18 | XMS_ITS | Clinical Summary ---
Author Organization [facility] Address [address] [place] [address] Care Team Providers Care Document Manager Name Role Phone Unavailable Primary Care Provider Unavailabl e Source Comments [facility] is fully rolled out with thefollowing exceptions:General Clinical Research [facility] Social History Tobacco Use Types [...] of 2 - 13+ 2-dose series) 10/01/1976 AMB SEASONAL FLU VACCINE (#1) 03/06/2025 COVID-19 Vaccine (1 - 2023-2 5 season) 2025 Respiratory Syncytial Virus (RSV) >60yo or [...] to Patient Date of Phone Billing Address [facility] Reference Lab Self [address] [place] [address] ADRIENNE GARCIA
== END 2025-05-17 23:59 ==
LOC: LAB.DROPOF 05-18 10:58
PROVIDERS: PCP Family Medicine; Visit Provider Family Medicine
DX: R07.9 Chest pain, unspecified (principal); R06.02 Shortness of breath
CPT/HCPCS: 80053; 80061

== ENCOUNTER 2025-06-08 11:07 | Outpatient (CLI) | payer BC, SELFPAY ==
--- NOTE | 2025-06-08 | CA_ITS ---
APPROVED REPORT Exam: Pharmacologic Technologist: Anny Hummel Stress Nurse: Elvi Roblero Ht: 5 ft 3 in Wt: 208 lbs BSA: 1.97 m2 HR: 73 bpm BP: 116/93 mmHg Rhythm: Sinus Rhythm Medical History Medical History: HTN, Smoking Allergies: Estrogens, Iodinated contrast, Flu Vaccine Cardiac Risk Factors: HTN, FHX of CAD, Smoking Stress Test Details Test: Lexiscan HR Resting HR: 73 bpm Max Heart Rate (APMHR): 159.898726 bpm Target HR (85% APMHR): 135.036244 bpm Recovery HR: 80 bpm BP Resting BP: 116.0/93.0 mmHg Max BP: 140.0/81.0 mmHg Recovery BP: 129.0/75.0 mmHg ECG Resting ECG: Sinus Rhythm Stress ECG Conclusion Patients lungs were clear to ausciltate prior to test start Patient had nausea and headache through out test Improved at 2 minutes recovery PAC Less than 0.5mm upsloping ST segment changes Flattening of ST segment at peak Electronically signed by : Indiana Peralta MD 06/13/2025 13:07:52
--- NOTE | 2025-06-08 11:30 | NM_ITS ---
APPROVED REPORT Exam: Nuclear Stress Test Indication: Chest pain, SOB, HTN, High cholesterol, Tobacco use, Family history Patient Location: Outpatient Stress Tech: Anny Hummel [place] Tech:Kaycee ChaviraWOLF RT(R)(N) Ht: 5 ft 3 in Wt: 200 lbs Bra Size: D HR: 70 bpm BP: 116/93 mmHg BSA: 1.93 m2 TID: 1.42 BMI: 35.4 History: Chest pain, SOB, HTN, High cholesterol, Tobacco use, Family history Procedure: Patient received 0.4 mg of intravenous Lexiscan, resting heart rate 70 bpm, resting blood pressure 116/93 mmHg, with Lexiscan maximum heart rate achieved was 95 bpm which is % of the maximum predicted heart rate and blood pressure was 140/81 mmHg. With Lexiscan, patient denied any complaint of chest pain. Cardiac Stress and Resting SPECT Images: Cardiac Stress and Resting SPECT images were obtained using technetium 99m Myoview 32.6 mCi stress and 10.92 mCi at rest. Resting and stress imaging in supine and prone positions demonstrate no evidence of fixed or reversible perfusion defects. There is increased transient ischemic dilatation ratio (TID 1.42), which may be suggestive of possible multivessel disease or balanced ischemia. Gated imaging demonstrates normal global LV systolic function. LVEF is calculated at 69%. Conclusion: No evidence of fixed or reversible perfusion defects. There is increased transient ischemic dilatation ratio (TID 1.42), which may be suggestive of possible multivessel disease or balanced ischemia. Gated imaging demonstrates normal global LV systolic function. LVEF is calculated at 69%. Electronically signed by : Indiana Peralta MD 06/13/2025 13:03:33
--- OUTSIDE RECORDS SUMMARY | 2025-06-08 11:39 | XMS_ITS | Clinical Summary ---
Author Organization [facility] Address [address] [place] [address] Phone Care Team Providers Care Cdl Driver Name Role Phone [place] VIRK Jennifer Rosalva [phone] Conditions or Problems Problem Name Problem Code Onset Date Status Entry Date Provider Comment Standard Description Annotate *AFTRCR FOLLOW SRG MUSCULOSKELETAL SYSTEM NEC Z48.89 (ICD-10-CM ) 11/01 Active 11/01 Jennifer Callahan MA Encounter for other specified surgical aftercare HERNIATED LUMBAR DISK WITH RADICULOPATHY 805280226 (SNOMED CT) 09/21 Active 09/28 Katherine Weir Lumbar disc prolapse with radiculopathy PRE-OP EXAM 008637738 (SNOMED CT) 08/23 Active 08/23 Fer Quevedo MD Special examination - general OVERWEIGHT [id number] (SNOMED CT) 08/23 Active 08/23 Jennifer Callahan MA Overweight LOW BACK PAIN 033247938 (SNOMED CT) 08/18 Active 08/18 Bettie Ford MA Low back pain HERNIATED NUCLEUS PULPOSUS 35338973 (SNOMED CT) 08/17 Active 08/17 Riccardo Andrade Herniation of nucleus pulposus L2-3 LUMBAR RADICULOPATHY 454745880 (SNOMED CT) 08/17 Active 08/17 Riccardo Andrade Lumbar radiculopathy Medications Medication Instructions Start Date Stop Date Generic Name NDC Provider GABAPENTIN 300 MG CAPS 1 po qd x 3 days, 1 bid x 3 days then 1 tid there after 6 GABAPENTIN [id number] Jennifer Callahan MA GABAPENTIN 300 MG CAPS 1 po tid GABAPENTIN [id number] Fer Quevedo MD GABAPENTIN 300 MG CAPS 1 po qd x 3 days, 1 bid x 3 days then 1 tid there after 12/13 GABAPENTIN [id number] Fer Quevedo MD TRAMADOL HCL 50 MG TABS 1 PO BID TRAMADOL HCL [id number] eFr Quevedo MD NORCO 5-325 MG ORAL TABLET 1 po TID 11/01 HYDROCODONE-ACETA MINOPHEN [id number] Jennifer Callahan MA NORCO 5-325 MG ORAL TABLET 1 po TID 11/01 HYDROCODONE-ACETA MINOPHEN 84003216538 Fer Quevedo MD PERCOCET 5-325 MG TABS 1-2 po q4-6 hrs prn pain max 8/day 10/04 OXYCODONE-ACETAMI NOPHEN [id number] Erasmo Jackson PERCOCET 5-325 MG TABS 1-2 po q4-6 hrs prn pain max 8/day 10/25 OXYCODONE-ACETAMI NOPHEN [id number] Fer Quevedo MD HIBICLENS 4 % EXTERNAL LIQUID Wash the entire back and both hip/buttock areas the night prior to the surgery 09/21 CHLORHEXIDINE GLUCONATE [id number] Fer Quevedo MD HIBICLEFELECIA 4 % EXTERNAL LIQUID Wash the entire back and both hip/buttock areas the night prior to the surgery 09/21 CHLORHEXIDINE GLUCONATE [id number] Fer Quevedo MD CYCLOBENZAPRINE HCL 10 MG TABS 1 tab Q8H prn CYCLOBENZAPRINE HCL [id number] Ismael Luis MD CYCLOBENZAPRINE HCL 10 MG TABS [facility] 08/18 CYCLOBENZAPRINE HCL [id number] Riccardo Andrade PRINIVIL 20 MG ORAL TABLET [facility] LISINOPRIL [id number] Bettie Ford MA CYCLOBENZAPRINE HCL 10 MG TABS [facility] 08/18 CYCLOBENZAPRINE HCL [id number] Bettie Ford MA VENTOLIN HFA AERS [facility] ALBUTEROL SULFATE AERS [id number] Bettie Ford MA GNP VITAMIN C TABS [facility] ASCORBIC ACID TABS [id number] Bettie Ford MA VITAMIN D3 TABS [facility] CHOLECALCIFEROL TABS [id number] Bettie Ford MA LOPID 600 MG TABS [facility] GEMFIBROZIL [id number] Bettie Ford MA PROZAC 20 MG CAPS [facility] FLUOXETINE HCL [id number] Bettie Ford MA PROVIGIL TABLET [facility] MODAFINIL TABS [id number] Bettie Ford MA TRAZODONE HCL TABS [facility] TRAZODONE HCL TABS [id number] Bettie Ford MA SYNTHROID TABS [facility] LEVOTHYROXINE SODIUM TABS [id number] Bettie Ford MA Medications Administered No information [...] Procedures Code Procedure Name Date Entry Date [facility]-[id number] Tobacco Cessation Counseling Performed 2 [facility]-[id number] Tobacco Cessation Counseling Performed 2 [facility]-[id number] Tobacco Cessation Counseling Performed 2 [facility]-[id number] Flu Shot Declined 3 [facility]-[id number] Tobacco Cessation Counseling Performed 2 [facility]-[id number] Flu Shot Contraindicated 20 24/08/12 [facility]-[id number] Tobacco Cessation Counseling Performed 2 Vital Signs [...]
--- OUTSIDE RECORDS SUMMARY | 2025-06-08 11:41 | XMS_ITS | Clinical Summary ---
Author Organization [facility] Address [address] [place] [address] Phone Care Team Providers Care Mower Operator Name Role Phone Joon Lakhani MD Primary Care Provider [phone] Allergies Active Allergy Reactions Criticality Noted Date [...] EDT) Sodium 132(L) 136 - 145 mmol/L [facility] Potassium 4.0 3.5 - 5.0 mmol/L [facility] Chloride 95(L) 98 - 107 mmol/L [facility] Total CO2 23 22 - 29 mmol/L [facility] Anion Gap 14 7 - 16 mmol/L [facility] Calcium 10.1 8.6 - 10.2 mg/dL [facility] Glucose Lvl 85 74 - 100 mg/dL [facility] BUN 13 6 - 20 mg/dL [facility] Creatinine 0.63 0.51 - 1.00 mg/dL [facility] GFR Afr Am >60 [facility] [...] MD CHEMISTRY ORDERABLES Edited Result - Final [facility] [address] [place] [address] * ACUTE HEPATITIS PANEL (04/07/2013 8:53 AM [...] R esult - Final Performing Organization Address [facility] Co de Phone Number [facility] [address] [place] [address] from Last 3 Months or Most Recently Relevant to Health Maintenance Insurance O Care Teams Mower Operator Relationship Specialty Start Date End Date Joon Lakhani MD PCP - General Family Medicine 04/06/13
--- OUTSIDE RECORDS SUMMARY | 2025-06-08 11:41 | XMS_ITS | Clinical Summary ---
Author Organization [facility] Address [address] [place] [address] Care Team Providers Care Evaluation Engineer Name Role Phone Unavailable Primary Care Provider Unavailabl e Source Comments [facility] is fully rolled out with thefollowing exceptions:General Clinical Research [facility] Social History Tobacco Use Types Packs/Day [...] SEASONAL FLU VACCINE (#1) 03/06/2025 COVID-19 Vaccine ( - 2024-2 6 season) 2025 Respiratory Syncytial Virus (RSV) >60yo [...] to Patient Date of Phone Billing Address [facility] Reference Lab Self [address] [place] [address] ADRIENNE GARCIA
--- OUTSIDE RECORDS SUMMARY | 2025-06-08 11:41 | XMS_ITS | Clinical Summary ---
Author Organization [facility] Address [address] [place] [address] Care Team Providers Care Draw Bench Operator Helper Name Role Phone Joon Lakhani MD Primary Care Provider [phone] Allergies Active Allergy Reactions Criticality Noted Date [...] CROSS ALL OTHERS NOT MEDICARE Care Teams Draw Bench Operator Helper Relationship Specialty Start Date End Date Joon Lakhani MD PCP - General Family Medicine 03/21/16
--- OUTSIDE RECORDS SUMMARY | 2025-06-08 11:41 | XMS_ITS | Clinical Summary ---
Author Organization [facility] Address [address] [place] [address], [address] [place] [address] Care Team Providers Care Hose Finisher Name Role Phone Unavailable Primary Care Provider [...]
[2025-06-08 12:50] VITALS: BP 116/93; PULSE 73; RESP 16
[2025-06-08] MEDS: SODIUM CHLORIDE 0.9% 10ML SYR (RAD ONLY) 10 ML IV ×2 (14:36)
[2025-06-08] MEDS: ISOTOPE MYOVIEW (PER STUDY) 1 DOSE IV (14:36)
== END 2025-06-08 23:59 | disposition home or self-care (01) ==
LOC: RAD 11:08
PROVIDERS: PCP Family Medicine; Visit Provider Physician Assistant
DX: I49.1 Atrial premature depolarization (principal); I25.119 Atherosclerotic heart disease of native coronary artery with unspecified angina pectoris; I10 Essential (primary) hypertension; E78.00 Pure hypercholesterolemia, unspecified; Z72.0 Tobacco use; R94.39 Abnormal result of other cardiovascular function study
CPT/HCPCS: 78452; 93017; 93018; A9502; J2785

== ENCOUNTER 2025-06-14 07:31 | Outpatient (CLI) | payer BC, SELFPAY ==
[2025-06-14 18:44] LABS: Hematocrit 46.2 % (37.0-47.0); Hemoglobin 14.7 g/dL (12.2-16.2); Immature Granulocytes % 1.1 %; Mean Corpuscular HGB Conc 31.8 g/dL (31.8-35.4); Mean Corpuscular Hemoglobin 28.7 pg (27.0-31.2); Mean Corpuscular Volume 90.2 fl (81-99); Nucleated Red Blood Cells % 0 %; Platelet Count 324 K/mm3 (142-424); Red Blood Count 5.12 M/mm3 (4.20-5.40); Red Cell Distribution Width-SD 44.1 fL; White Blood Count 13.2 K/mm3 (4.8-10.8)
[2025-06-14 18:58] LABS: Alanine Aminotransferase 64 U/L (12-78); Albumin Level 4.3 g/dl (3.5-5.0); Albumin/Globulin Ratio 1.4 (1.1-1.8); Alkaline Phosphatase 110 U/L (38-126); Anion Gap 15.6 mEq/L (5-15); Aspartate Amino Transferase 81 U/L (14-36); Bilirubin,Total 0.6 mg/dl (0.2-1.3); Blood Urea Nitrogen 18 mg/dl (7-17); Calcium 9.5 mg/dl (8.4-10.2); Carbon Dioxide 23 mmol/L (22.0-30.0); Chloride 102 mmol/L (98-107); Creatinine,Serum 1.00 mg/dl (0.52-1.04); Estimated Glomerular Filt Rate 56 ml/min (>60); GFR (African American) 68 ML/MIN (>60); Globulin 3.1 g/dL (1.3-3.2); Glucose 99 mg/dl (74-100); Potassium 4.6 mmoL/L (3.5-5.1); Sodium 136 mmol/L (136-145); Total Protein,Serum 7.4 g/dl (6.3-8.2)
--- OUTSIDE RECORDS SUMMARY | 2025-06-16 08:08 | XMS_ITS | Clinical Summary ---
Author Organization [facility] Address [address] [place] [address] Care Team Providers Care Kier Hand Name Role Phone Joon Lakhani MD Primary Care Provider [phone] Allergies Active Allergy Reactions Criticality Noted Date [...] CROSS ALL OTHERS NOT MEDICARE Care Teams Kier Hand Relationship Specialty Start Date End Date Joon Lakhani MD PCP - General Family Medicine 03/21/16
--- OUTSIDE RECORDS SUMMARY | 2025-06-16 08:08 | XMS_ITS | Clinical Summary ---
Author Organization [facility] Address [address] [place] [address] Care Team Providers Care Fountain Dispenser Name Role Phone Unavailable Primary Care Provider Unavailabl e Source Comments [facility] is fully rolled out with thefollowing exceptions:General Clinical Research [facility] Social History Tobacco Use Types Packs/Day [...] 10/01/1964 DTAP/Tdap/Td IMMUNIZATION (1 - Tdap) 10/01/1970 Yearly Physical Ages 3-18+ 10/01/1974 VARICELLA IMMUNIZATION (1 of 2 - 13+ [...] to Patient Date of Phone Billing Address [facility] Reference Lab Self 1965 [address] [place] [address] ADRIENNE GARCIA Member Subscriber Plan / Payer (Ef fective for All Dates) Name:Anny Mistry Relation to Subscriber:Self Name:Anny Mistry Payer ID:[id number] (NAIC) Group ID:Not on file Type:HMO Address: [facility] [address] [place] [id number]
--- OUTSIDE RECORDS SUMMARY | 2025-06-16 08:08 | XMS_ITS | Clinical Summary ---
Author Organization [facility] Address [address] [place] [address], [address] [place] [address] Care Team Providers Care Acid Washer Operator Name Role Phone Unavailable Primary Care [...]
== END 2025-06-14 23:59 ==
LOC: LAB.DROPOF 06-16 07:34
PROVIDERS: PCP Family Medicine; Visit Provider Physician Assistant
DX: I25.10 Atherosclerotic heart disease of native coronary artery without angina pectoris (principal); R94.31 Abnormal electrocardiogram [ECG] [EKG]
CPT/HCPCS: 80053; 85025

== ENCOUNTER 2025-07-03 07:30 | Day surgery (SDC) | payer BC, SELFPAY ==
[2025-07-03] VITALS (13 sets, daily range): BP systolic 108–138; BP diastolic 66–92; PULSE 68–87; RESP 16; O2SAT 90–95; BMI 36.8
--- NOTE | 2025-07-03 07:06 | IR_ITS ---
APPROVED REPORT Patient Location: Outpatient PROCEDURES Left heart catheterization Left ventriculogram Selective coronary angiogram INDICATION Abnormal Myoview, Angina pectoris Informed consent was obtained prior to the procedure. COMPLICATIONS NONE Estimated Blood Loss: LESS THAN 10 ML TECHNIQUE One percent lidocaine used to anesthetize the right anterior aspect of the wrist. The right radial artery was accessed via the Seldinger technique. A 6 Latvian sheath was placed in the right radial artery. 2.5 mg of Verapamil, 800 mcg of nitroglycerin, 1mg Lidocaine and 5000 U Heparin were given through the arterial sheath. The JL3 catheter was also used to perform left heart catheterization, left ventriculogram and selective coronary angiogram. At the end of the procedure the sheath was removed good hemostasis was achieved using Traclet band, patient was transferred to the postop holding area in stable condition. ANGIOGRAPHIC RESULTS The left main artery Normal The left anterior descending artery Has proximal 10% mild luminal regularities with patency in the midsegment however the vessel becomes small in caliber with no obvious atherosclerotic disease and then slowly tapers off prior to approaching the apex The circumflex artery Nondominant with 10% luminal regularities The right coronary artery Large dominant with 20 to 30% proximal stenosis and diffuse 10 to 20% luminal regularities The GLEZ ventriculogram reveals Normal slightly hyperdynamic at 70% The left ventricular end-diastolic pressure Elevated at 25 mmHg IMPRESSION Unusually anatomically small LAD with mild nonflow limiting atherosclerotic plaque Mild to moderate nonflow limiting plaque throughout the dominant right coronary Elevated LVEDP with slightly hyperdynamic ejection fraction consistent with HFpEF PLAN 1. Risk factor modification 2. Treatment of HFpEF 3. Recommend sleep study Electronically signed by : Romeo Obrien MD 07/03/2025 10:00:25
[2025-07-03 07:58] LABS: Hematocrit 44.0 % (37.0-47.0); Hemoglobin 14.8 g/dL (12.2-16.2); Immature Granulocytes % 0.9 %; Mean Corpuscular HGB Conc 33.6 g/dL (31.8-35.4); Mean Corpuscular Hemoglobin 29.6 pg (27.0-31.2); Mean Corpuscular Volume 88.0 fl (81-99); Nucleated Red Blood Cells % 0 %; Platelet Count 333 K/mm3 (142-424); Red Blood Count 5.00 M/mm3 (4.20-5.40); Red Cell Distribution Width-SD 42.9 fL; White Blood Count 11.6 K/mm3 (4.8-10.8)
[2025-07-03 08:09] LABS: Chloride 104 mmol/L (98-107); Potassium 5.4 mmoL/L (3.5-5.1); Sodium 136 mmol/L (136-145)
[2025-07-03 08:12] LABS: Anion Gap 11.4 mEq/L (5-15); Blood Urea Nitrogen 14 mg/dl (7-17); Calcium 9.6 mg/dl (8.4-10.2); Carbon Dioxide 26 mmol/L (22.0-30.0); Creatinine Clearance Estimated 88 mL/min (50-200); Creatinine,Serum 0.80 mg/dl (0.52-1.04); Estimated Glomerular Filt Rate 73 ml/min (>60); GFR (African American) 88 ML/MIN (>60); Glucose 135 mg/dl (74-100)
[2025-07-03] MEDS: METHYLPREDNISOLONE SOD SUCC 125MG VIAL 125 MG IV (09:24)
[2025-07-03] MEDS: FAMOTIDINE 20MG/2ML VIAL 20 MG IV (09:24)
[2025-07-03] MEDS: VERAPAMIL 2.5MG/ML 2ML VIAL 2.5 MG IV (09:25)
[2025-07-03] MEDS: HEPARIN 1,000 UNITS/ML 10ML VIAL (CATH LAB) 5000 UNIT IV (09:25)
[2025-07-03] MEDS: HEPARIN 1,000 UNITS/500ML NS (CATH LAB) 3000 UNIT IV (09:25)
[2025-07-03] MEDS: NITROGLYCERIN 800MCG/8ML SYR (CATH LAB) 800 MCG IA (09:25)
[2025-07-03] MEDS: LIDOCAINE 1% 10ML MDV 10 ML IJ (09:26)
[2025-07-03] MEDS: MIDAZOLAM HCL 1MG/ML 5ML VIAL 1 MG IV (09:27)
[2025-07-03] MEDS: 0.9 % SODIUM CHLORIDE 500 ML 25 ML IV (09:27)
[2025-07-03] MEDS: FENTANYL 100MCG/2ML VIAL 50 MCG IV (09:28)
== END 2025-07-03 12:45 | disposition home or self-care (01) ==
PROVIDERS: PCP Family Medicine; Visit Provider Internal Medicine
PROC: 4A023N7 Measurement of Cardiac Sampling and Pressure, Left Heart, Percutaneous Approach (ICD-10-PCS; CPT 93452; principal; 2025-07-03 07:30)
DX: I25.119 Atherosclerotic heart disease of native coronary artery with unspecified angina pectoris (principal); R94.39 Abnormal result of other cardiovascular function study; R94.31 Abnormal electrocardiogram [ECG] [EKG]; I10 Essential (primary) hypertension; E78.5 Hyperlipidemia, unspecified; J44.9 Chronic obstructive pulmonary disease, unspecified; F17.210 Nicotine dependence, cigarettes, uncomplicated; Z79.82 Long term (current) use of aspirin; Z79.890 Hormone replacement therapy; Z79.899 Other long term (current) drug therapy; Z88.7 Allergy status to serum and vaccine; Z88.8 Allergy status to other drugs, medicaments and biological substances; Z91.041 Radiographic dye allergy status; Z79.51 Long term (current) use of inhaled steroids; Z82.49 Family history of ischemic heart disease and other diseases of the circulatory system
CPT/HCPCS: 80048; 85025; 93458; 99152; C1760; C1769; C1887; J1200; J1308; J1644; J2003; J2919; J3010; J7040; Q9967